=== PATIENT | male | born 1970 | race American Indian/Alaskan Native ===

== ENCOUNTER 2024-12-05 08:57 | Emergency (ER) | payer MEDICAID, SELFPAY ==
[2024-12-05 09:28] VITALS: BP 124/75; PULSE 88; RESP 18; TEMP 36.7; O2SAT 98; BMI 30.1
--- NOTE | 2024-12-05 10:02 | PD.EDRME ---
Rapid Medical Screening Exam RME Arrival date/time: 12/05/24 08:57 Chief Complaint: Animal Bite Vital signs: Vital Signs Temperature 98.0 F 12/05/24 09:28 Pulse Rate 88 12/05/24 09:28 Respiratory Rate 18 12/05/24 09:28 Blood Pressure 124/75 12/05/24 09:28 Pulse Oximetry (%) 98 12/05/24 09:28 Oxygen Delivery Method Room Air 12/05/24 09:28 Pulse ox room air 98% Vital signs reviewed by provider: Yes RME Narrative: Patient tells me that he was bit by an insect this last Thursday and his left lower extremity began to swell which brought him to the ED today. Complains of left lower extremity pain.
--- NOTE | 2024-12-05 10:03 | XR_ITS ---
Examination: Duplex scan of the lower extremity, unilateral left complete Date and time of exam: December 05, 2024 1019 hours INDICATIONS: Left leg edema pain and fever beginning 2 days ago Technique: Duplex scan of the extremity veins using B-mode/grayscale imaging and Doppler spectral analysis and color flow Attention is directed to internal echogenicity, compression and augmentation involving these veins, color flow assessment, spectral analysis Findings: Major deep venous structures in the extremity demonstrate normal course and caliber. There is no evidence of deep vein thrombosis. Normal color flow and spectral analysis Impression: Negative for DVT..
[2024-12-05 10:48] LABS: Basophils # (Auto) 0.0 Thou/mm3 (0.0-0.2); Basophils % (Auto) 1 % (0-2.5); Eosinophils # (Auto) 0.2 Thou/mm3 (0.0-0.5); Eosinophils % (Auto) 6 % (0-10); Hematocrit 28.5 % (41.0-53.0); Hemoglobin 10.2 g/dL (13.5-16.0); Immature Granulocytes Auto 0.02 Thou/mm3 (0.00-0.00); Lymphocytes # (Auto) 0.7 Thou/mm3 (1.0-4.8); Lymphocytes % (Auto) 23 % (10-50); Mean Corpuscular HGB Conc 35.8 g/dl (31.0-37.0); Mean Corpuscular Hemoglobin 30.5 pg (25.0-35.0); Mean Corpuscular Volume 85 fL (80-100); Monocytes # (Auto) 0.3 Thou/mm3 (0.0-0.8); Monocytes % (Auto) 9 % (0-12); Neutrophils # (Auto) 1.8 Thou/mm3 (1.8-7.7); Neutrophils % (Auto) 60 % (37-80); Nucleated Red Blood Cell # 0.00 Thou/mm3 (0.00-0.00); Nucleated Red Blood Cell % 0 /100 WBC (0); RDW Standard Deviation 47.0 fL (35.1-43.9); Red Blood Count 3.34 Miln/mm3 (4.50-5.90); White Blood Count 3.0 Thou/mm3 (3.8-10.6)
[2024-12-05 10:53] LABS: Alanine Aminotransferase 50 U/L (10-49); Albumin, Serum 2.4 gm/dL (3.5-5.0); Albumin/Globulin Ratio 0.6 (1.2-2.2); Alkaline Phosphatase 55 U/L (46-116); Anion Gap 5 (7-16); Aspartate Amino Transferase 82 U/L (0-34); BUN/Creatinine Ratio 19 Ratio (12-20); Bilirubin,Total 2.2 mg/dL (0.3-1.2); Blood Urea Nitrogen 13 mg/dL (9-23); Calcium 7.5 mg/dL (8.3-10.6); Calcium (Corrected) 8.8 mg/dL (8.5-10.1); Carbon Dioxide 28.6 mMol/L (20.0-31.0); Chloride 104 mMol/L (98-107); Creatinine (Component) 0.7 mg/dL (0.6-1.3); Estimated Creatinine Clearance 131.4 mL/min (>60); Globulin 3.9 gm/dL (2.3-3.5); Glucose 102 mg/dL (74-106); Osmolality,Calculated 275 (275-295); Potassium 3.1 mMol/L (3.4-5.1); Sodium 138 mMol/L (136-145); Total Protein 6.3 gm/dL (5.7-8.2); eGFR > 60 See Note
[2024-12-05 10:58] LABS: Platelet Count 54 Thou/mm3 (140-440)
[2024-12-05 11:45] LABS: D-Dimer 411 ng/mL (<600)
[2024-12-05 12:08] LABS: Slide Review Platelets confirmed
[2024-12-05 12:13] VITALS: BP 137/81; PULSE 72; RESP 18; TEMP 36.3; O2SAT 100
--- NOTE | 2024-12-05 12:31 | XR_ITS ---
Examination: CT left lower extremity, with intravenous contrast. 2-D sagittal reconstructions. 2-D coronal reconstructions. 3-D reconstructions. Date and time of exam: December 05, 2024 1455 hours INDICATIONS: Left leg redness swelling and pain this week CTDI: vol (mGy):9.85 DLP: (mGycm):1021 Technique: Multiple 1.25 mm axial sections of the 60 cc Isovue-370 have been obtained. 2-D sagittal and coronal reconstructions have been obtained. 3-D reconstructions have been obtained. Low dose protocols were performed. One or more of the following dose reduction techniques were used; automated exposure control, adjustment of the mA and/or KV according to patient size, use of iterative reconstruction technique. Findings: Mild cellulitis edema in the subcutaneous fatty tissues surrounding the thigh, more prominent about the lateral aspect of the knee and surrounding the lower leg However, no soft tissue abscess Negative for osteomyelitis, no cortical bone destruction IMPRESSION: Cellulitis pattern lower leg especially about the knee and tibia-fibula No soft tissue abscess Negative for osteomyelitis
[2024-12-05 12:43] VITALS: BP 110/69; PULSE 73
[2024-12-05] MEDS: FUROSEMIDE INJ 10 MG/ML VIAL 2 ML 40 MG IVP (12:43)
[2024-12-05] MEDS: MORPHINE SULF INJ 10 MG/ML VIAL 2 MG IVP (12:45)
[2024-12-05] MEDS: DOXYCYCLINE 100 MG TABLET PO (12:46)
--- NOTE | 2024-12-05 13:34 | EDNOTE_ITS ---
ED Extremity Problem RME/HPI General Chief complaint: Animal Bite Stated complaint: Spider bite left lower leg Time Seen by Provider: 12/05/24 12:15 Arrival date/time: 12/05/24 08:57 Limitations: no limitations RME / HPI RME / HPI Narrative: Patient is a 54-year-old male is here today for left lower leg pain and swelling. He has chronic lower leg swelling but it became worse 3 days ago. He was seen in our ER recently for this and was treated with antibiotics. He takes spironolactone and furosemide chronically. He denies any chest pain or shortness of breath. Has no fevers or chills. Has no open wounds. Does not recall any injuries to his leg. He has no other acute complaints. Patient states he is not sure why his leg is chronically swollen. He states he has not had this worked up before. He has no known history of lymphedema. Related Data Previous Rx's ?Medication ?Instructions ?Recorded furosemide 20 mg tablet (Lasix) 20 mg PO BID 1 month # 60 tabs 12/04/22 metolazone 2.5 mg tablet 2.5 mg PO QDAY 1 month #30 t abs 12/04/22 pantoprazole 40 mg tablet,delayed 40 mg PO QDAY #30 ta bs 12/04/22 release (Protonix) potassium chloride 8 mEq 8 meq PO DAILY 30 days #30 t abs 12/04/22 tablet,extended release (Klor-Con) spironolactone 25 mg tablet 25 mg PO BID 30 days #60 t abs 12/04/22 doxycycline hyclate 100 mg capsule 100 mg PO BID #14 c aps 12/05/24 naproxen 500 mg tablet 500 mg PO BID PRN pain #14 t abs 12/05/24 Allergies Allergy/AdvReac Type Severity Reaction Status Date / Time No Known Allergies Allergy Verified 12/05/24 09:01 Review of Systems Review of Systems Systems Reviewed: All systems reviewed, normal except as documented ED Exam General Limitations: Present no limitations General appearance: Present alert and in no apparent distress Head Head exam: Present atraumatic Eye Eye exam: Present normal appearance, PERRL and EOMI ENT ENT exam: Present normal exam, normal oropharynx and mucous membranes moist Neck Neck exam: Present normal inspection, full ROM and trachea midline Chest Chest inspection: Present normal inspection and symmetric chest wall rise Respiratory Respiratory exam: Present normal lung sounds bilaterally Cardiovascular Cardiovascular exam: Present regular rate, normal rhythm and normal heart sounds Abdominal Exam Abdominal exam: Present soft and normal bowel sounds Extremities Exam Extremities exam: Present full ROM and pedal edema (+4, pretibial edema at the left side.) Back Exam Back exam: Present normal inspection and full ROM Neurological Exam Neurological exam: Present alert and oriented X3 Psychiatric Psychiatric exam: Present normal affect and normal mood Skin Skin exam: Present warm, dry, intact, normal color and other (There is diffuse edema at the dorsum of the left foot that extends to the left leg. Skin is shiny. There is no open wounds or warmth. No drainage present.) Course Quality Measures none Orders Category Date Time Status CT Screening NOW Care 12/05/24 12:[address] lower leg LT w con Stat Exams 12/05/24 12:31 Completed US venous duplex LE LT Stat Exams 12/05/24 10:03 Completed CBC Stat Lab 12/05/24 10:14 Completed CMP [Comprehensive Metabolic Panel] Stat Lab 12/05/24 10:14 Completed D-Dimer Stat Lab 12/05/24 10:14 Completed Doxycycline [Vibramycin] Med 12/05/24 12:22 Discontinued 100 mg PO X1 ONE Furosemide [Lasix Inj] Med 12/05/24 12:22 Discontinued 40 mg IVP X1 ONE Morphine Inj Med 12/05/24 12:22 Discontinued 2 mg IVP X1 ONE Potassium Chloride [K-Dur] Med 12/05/24 16:23 Discontinued 40 meq PO X1 ONE Vital Signs Vital signs: Vital Signs Temperature 98.0 F 12/05/24 09:28 Pulse Rate 88 12/05/24 09:28 Respiratory Rate 18 12/05/24 09:28 Blood Pressure 124/75 12/05/24 09:28 Pulse Oximetry (%) 98 12/05/24 09:28 Oxygen Delivery Method Room Air 12/05/24 09:28 Extremity Problem MDM Narrative MDM Narrative:: Patient is a 54-year-old male is here today for left lower leg pain and swelling. He has chronic lower leg swelling but it became worse 3 days ago. He was seen in our ER recently for this and was treated with antibiotics. He takes spironolactone and furosemide chronically. He denies any chest pain or shortness of breath. Has no fevers or chills. Has no open wounds. Does not recall any injuries to his leg. He has no other acute complaints. Patient states he is not sure why his leg is chronically swollen. He states he has not had this worked up before. He has no known history of lymphedema. Ultrasound was negative for DVT. CT was obtained to rule out gas from nation or lymphedema. CT revealed cellulitic pattern with no soft tissue gas or lymphedema. Patient was given a dose of doxycycline here. He will be discharged with a prescription of doxycycline and naproxen. Return precautions were discussed. He agrees return anytime for any worsening changes. Patient data External records reviewed:: [facility] previous records and None Clinical information provided by:: patient Social determinants that could affect healthcare access:: none Patient has the following chronic illnesses:: Lower leg edema How is presenting disease/condition affected by chronic disease/condition?: exacerbated by Evaluation data The following diagnostics were reviewed and interpreted by me:: radiology exam(s) Lab and/or radiology exams considered but not ordered:: n/a Interpretation Summary: No soft tissue gas or lymphedema Medications / Prescriptions Medications or Prescriptions considered but not ordered:: n/a Medication administrations:: Medication Administration History Discontinued Medications Doxycycline Hyclate (Doxycycline 100 Mg Tablet) 100 mg PO X1 ONE Stop: 12/05/24 12:23 Last Admin: 12/05/24 12:46 Dose: 100 mg Documented By: RD Furosemide (Furosemide Inj 10 Mg/Ml Vial 2 Ml) 40 mg IVP X1 ONE Stop: 12/05/24 12:23 Last Admin: 12/05/24 12:43 Dose: 40 mg Documented By: RD Morphine Sulfate (Morphine Sulf Inj 10 Mg/Ml Vial) 2 mg IVP X1 ONE Stop: 12/05/24 12:23 Last Admin: 12/05/24 12:45 Dose: 2 mg Documented By: RD Potassium Chloride (Potassium Chloride 20 Meq Tabcr) 40 meq PO X1 ONE Stop: 12/05/24 16:24 See above Consultations Consultation(s) initiated? (list below): No Diagnosis Extremity Problem Differential Diagnosis: superficial thrombophlebitis, deep venous thrombosis of upper extremity, lower extremity edema and deep vein thrombosis of lower extremity Most likely diagnosis given after review of the tests above:: Cellulitis left lower leg Admission Indicated Admission indicated?: not indicated Admission Request Was there a request for admission?: No Disposition Plan Disposition Plan: Discharge Discharge Attestation Discharge Attestation: The patient and all family members were given an opportunity to ask questions and understood the discharge instructions. Discharge instructions specifically effects, indications for sooner follow up or return to the emergency department, and the expected course of current diagnosis. Patient condition: Stable Discharge Plan Plan Patient Disposition: HOME (Self Care) Patient condition on transfer: Stable Prescriptions/Referrals Prescriptions/Med Rec: New doxycycline hyclate 100 mg capsule 100 mg PO BID Qty: 14 0RF naproxen 500 mg tablet 500 mg PO BID PRN (Reason: pain) Qty: 14 0RF No Action furosemide [Lasix] 20 mg tablet 20 mg PO BID 30 Days Qty: 60 1RF metolazone 2.5 mg Tablet 2.5 mg PO QDAY 30 Days Qty: 30 1RF spironolactone 25 mg Tablet 25 mg PO BID 30 Days Qty: 60 1RF potassium chloride [Klor-Con 8] 8 mEq Tablet Extended Release 8 meq PO DAILY 30 Days Qty: 30 1RF pantoprazole [Protonix] 40 mg tablet,delayed release (DR/EC) 40 mg PO QDAY Qty: 30 0RF Referrals: No Primary/Family,Physician [Primary Care Provider] - In 1 week Outpatient Orders: Potassium (Routine) Location: None Selected Ordered By: Alejandra Corado Problem List Clinical Impression: Cellulitis of left leg Patient/Caregiver Discharge Instructions Education Materials: ED Cellulitis Additional Instructions: - Use the provided antibiotic as prescribed. - Use the provided medications for pain relief. - Return here to the ER anytime for any worsening changes. Print Language: Macedonian Stand Alone Forms: Nancy Award Info., Patient Portal Info Letter
--- NOTE | 2024-12-05 16:16 | PC.NURSE ---
PATIENT STATED THAT NEEDED TO GO HOME BECAUSE HE LEFT HIS rv OPEN IN A MURRELL TO GO TO ER . PATIENT LEFT WITH INSTRUCTIONS TO [facility].
== END 2024-12-05 17:15 | disposition home or self-care (01) ==
PROVIDERS: Emergency Provider Physician Assistant
DX: L03.116 Cellulitis of left lower limb (principal)
CPT/HCPCS: 36415; 73701; 80053; 85025; 85379; 93971; 96374; 96375; 99284; A4649; J1938; J2270; Q9967; A9270

== ENCOUNTER 2024-12-13 22:22 | Emergency (ER) | payer MEDICAID, SELFPAY ==
[2024-12-13 22:23] VITALS: BMI 41.8
[2024-12-13 23:29] VITALS: BP 106/58; PULSE 76; RESP 18; TEMP 36.7; O2SAT 99
--- NOTE | 2024-12-14 00:20 | EDRME_ITS ---
Rapid Medical Screening Exam [facility] Arrival date/time: 12/13/24 22:22 54M with history of cirrhosis, asthma and polysubstance use presented to ED with several weeks of BLE swelling/pain (L>R). Patient has been on Bactrim and doxy w/o relief. Patient had recent imaging on previous visit. Chief Complaint: Wound/Laceration Vital signs: Vital Signs Temperature 98.0 F 12/13/24 23:29 Pulse Rate 76 12/13/24 23:29 Respiratory Rate 18 12/13/24 23:29 Blood Pressure 106/58 L 12/13/24 23:29 Pulse Oximetry (%) 99 12/13/24 23:29 Oxygen Delivery Method Room Air 12/13/24 23:29
[2024-12-14 00:52] LABS: Basophils # (Auto) 0.0 Thou/mm3 (0.0-0.2); Basophils % (Auto) 0 % (0-2.5); Eosinophils # (Auto) 0.2 Thou/mm3 (0.0-0.5); Eosinophils % (Auto) 5 % (0-10); Hematocrit 28.3 % (41.0-53.0); Hemoglobin 9.8 g/dL (13.5-16.0); Immature Granulocytes Auto 0.01 Thou/mm3 (0.00-0.00); Lymphocytes # (Auto) 0.7 Thou/mm3 (1.0-4.8); Lymphocytes % (Auto) 25 % (10-50); Mean Corpuscular HGB Conc 34.6 g/dl (31.0-37.0); Mean Corpuscular Hemoglobin 30.7 pg (25.0-35.0); Mean Corpuscular Volume 89 fL (80-100); Monocytes # (Auto) 0.3 Thou/mm3 (0.0-0.8); Monocytes % (Auto) 10 % (0-12); Neutrophils # (Auto) 1.6 Thou/mm3 (1.8-7.7); Neutrophils % (Auto) 59 % (37-80); Nucleated Red Blood Cell # 0.00 Thou/mm3 (0.00-0.00); Nucleated Red Blood Cell % 0 /100 WBC (0); RDW Standard Deviation 49.8 fL (35.1-43.9); Red Blood Count 3.19 Miln/mm3 (4.50-5.90)
[2024-12-14 01:02] LABS: Platelet Count 65 Thou/mm3 (140-440); White Blood Count 2.8 Thou/mm3 (3.8-10.6)
[2024-12-14 01:07] LABS: B-Type Natriuretic Peptide 32 pg/mL (0-100)
[2024-12-14 01:08] LABS: Alanine Aminotransferase 36 U/L (10-49); Albumin, Serum 2.3 gm/dL (3.5-5.0); Albumin/Globulin Ratio 0.6 (1.2-2.2); Alkaline Phosphatase 56 U/L (46-116); Anion Gap 4 (7-16); Aspartate Amino Transferase 73 U/L (0-34); BUN/Creatinine Ratio 19 Ratio (12-20); Bilirubin,Total 1.2 mg/dL (0.3-1.2); Blood Urea Nitrogen 15 mg/dL (9-23); C-Reactive Protein 3.0 mg/dL (0.0-0.9); Calcium 7.8 mg/dL (8.3-10.6); Calcium (Corrected) 9.2 mg/dL (8.5-10.1); Carbon Dioxide 30.9 mMol/L (20.0-31.0); Chloride 106 mMol/L (98-107); Creatinine (Component) 0.8 mg/dL (0.6-1.3); Estimated Creatinine Clearance 140.0 mL/min (>60); Globulin 4.1 gm/dL (2.3-3.5); Glucose 100 mg/dL (74-106); Osmolality,Calculated 282 (275-295); Potassium 3.9 mMol/L (3.4-5.1); Sodium 141 mMol/L (136-145); Total Protein 6.4 gm/dL (5.7-8.2); eGFR > 60 See Note
[2024-12-14 01:33] LABS: Sed Rate (ESR) 20 mm/hr (0-20)
[2024-12-14 01:44] LABS: Slide Review Platelets confirmed
[2024-12-14 02:45] VITALS: BP 128/76; PULSE 86; RESP 18; TEMP 36.8; O2SAT 100
[2024-12-14 03:41] LABS: Lactate (Lactic Acid) 1.2 mMol/L (0.4-2.0)
--- NOTE | 2024-12-14 03:42 | EDNOTE_ITS ---
ED Extremity Problem RME/HPI General Chief complaint: Wound/Laceration Stated complaint: LEFT LEG WOUND DRAINING MORE, BLE SWELLING Arrival date/time: 12/13/24 22:22 RME / HPI RME / HPI Narrative: 12/13/24 22:22 54M with history of cirrhosis, asthma and polysubstance use presented to ED with several weeks of BLE swelling/pain (L>R). Patient has been on Bactrim and doxy w/o relief. Patient had recent imaging on previous visit. DR. SURESH MAIN ED EVALUATION: 54 y/o male with Hx of COPD, Hepatitis C, and Smoking presents to ED c/o BLE swelling, redness, and pain x 2 weeks. Patient also reports a wound with discharge to the back of the left calf. Patient was seen in the ED 1 week ago and was prescribed antibiotics. Patient also states that he was supposed to be referred for treated of his liver by his PCP, but was never referred. Denies any abdominal swelling. Related Data Previous Rx's ?Medication ?Instructions ?Recorded furosemide 20 mg tablet (Lasix) 20 mg PO BID 1 month # 60 tabs 12/04/22 metolazone 2.5 mg tablet 2.5 mg PO QDAY 1 month #30 t abs 12/04/22 pantoprazole 40 mg tablet,delayed 40 mg PO QDAY #30 ta bs 12/04/22 release (Protonix) potassium chloride 8 mEq 8 meq PO DAILY 30 days #30 t abs 12/04/22 tablet,extended release (Klor-Con) spironolactone 25 mg tablet 25 mg PO BID 30 days #60 t abs 12/04/22 doxycycline hyclate 100 mg capsule 100 mg PO BID #14 c aps 12/05/24 naproxen 500 mg tablet 500 mg PO BID PRN pain #14 t abs 12/05/24 Allergies Allergy/AdvReac Type Severity Reaction Status Date / Time No Known Allergies Allergy Verified 12/13/24 22:23 Review of Systems Review of Systems Systems Reviewed: All systems reviewed, normal except as documented Past Medical History Past Medical History RESPIRATORY: Positive Chronic Obstructive Pulmonary Disease (COPD) and Asthma GASTROINTESTINAL: Positive Hepatitis (C) Social History SMOKING STATUS: Former smoker ED Exam Narrative Physical exam: GENERAL APPEARANCE: alert and oriented x 4, well-developed, well-nourished, no acute distress VITALS: All vitals were reviewed and the pulse ox is 100% on room air, which is normal according to my interpretation. HEENT: Normocephalic, atraumatic; pupils equal, round, reactive to light; EOMI; mucous membranes pink, moist; oropharynx clear NECK: Supple LUNGS: CTABL; no wheezes, no rales, no rhonchi HEART: Regular rate, regular rhythm; normal S1, S2; no murmurs ABDOMEN: non distended; normal BS; soft, no tenderness, no guarding, no rebound; no masses, no organomegaly, no hernia BACK: no CVA tenderness EXTREMITIES: 3+ lower extremity edema, eft leg with mild chronic venuos stasis, wheeping, ulcer on the back approximately 4 cm, irregular, with increased warmth NEUROLOGIC: awake; alert and oriented x4; cranial nerves II-XII grossly intact; no focal sensory or motor deficits PSYCHIATRIC: appropriate mood and affect SKIN: warm, dry, normal color; no rashes Course Quality Measures none Orders Category Date Time Status BNP [B-Type Natriuretic Peptide] Stat Lab 12/14/24 00:40 Completed CBC Stat Lab 12/14/24 00:40 Completed CMP [Comprehensive Metabolic Panel] Stat Lab 12/14/24 00:40 Completed CRP [C-Reactive Protein] Stat Lab 12/14/24 00:40 Completed ESR [Sed Rate (ESR)] Stat Lab 12/14/24 00:40 Completed Lactate (Lactic Acid) Stat Lab 12/14/24 03:34 Completed Procalcitonin Stat Lab 12/14/24 03:34 Completed Trimethoprim/Sulfa 160/800 Ds [Bactrim Ds] Med 12/14/24 04:35 Discontinued 1 tab PO X1 ONE Vital Signs Vital signs: Vital Signs Temperature 98.0 F 12/13/24 23:29 Pulse Rate 76 12/13/24 23:29 Respiratory Rate 18 12/13/24 23:29 Blood Pressure 106/58 L 12/13/24 23:29 Pulse Oximetry (%) 99 12/13/24 23:29 Oxygen Delivery Method Room Air 12/13/24 23:29 Extremity Problem MDM Narrative MDM Narrative:: Scribe Attestation: I, Yessica Gerardo, am scribing for and in the presence of Dr. Suresh. Provider Notation: Although this document has been carefully reviewed, there may still be some phonetic and other typographical errors.? These errors are purely grammatical due to imperfections in the software program and should not be construed in any way to? compromise the substance of the patient's medical care during this visit. Patient data External records reviewed:: [facility] previous records (Reviewed prior ED records from 12/05/24. Patient was seen for Cellulitis of left leg.) Clinical information provided by:: patient Social determinants that could affect healthcare access:: none Patient has the following chronic illnesses:: COPD, Asthma, Hepatitis C How is presenting disease/condition affected by chronic disease/condition?: exacerbated by Evaluation data The following diagnostics were reviewed and interpreted by me:: lab results Lab and/or radiology exams considered but not ordered:: None Interpretation Summary: Labs unremarkable. See MDM above. Medications / Prescriptions Medications or Prescriptions considered but not ordered:: None Medication administrations:: Medication Administration History Discontinued Medications Trimethoprim/Sulfamethoxazole (Trimethoprim/Sulfa 160/800 Ds Tablet) 1 tab PO X1 ONE Stop: 12/14/24 04:36 See above Consultations Consultation(s) initiated? (list below): No Diagnosis Extremity Problem Differential Diagnosis: cellulitis, superficial thrombophlebitis, deep venous thrombosis of upper extremity, lower extremity edema and deep vein thrombosis of lower extremity Most likely diagnosis given after review of the tests above:: Cellulitis Admission Indicated Admission indicated?: not indicated Explain why admission is indicated or not indicated:: Patient does not meet admission criteria. Admission Request Was there a request for admission?: No Disposition Plan Disposition Plan: Discharge Discharge Attestation Discharge Attestation: The patient and all family members were given an opportunity to ask questions and understood the discharge instructions. Discharge instructions specifically effects, indications for sooner follow up or return to the emergency department, and the expected course of current diagnosis. Patient condition: Stable Discharge Plan Plan Patient Disposition: HOME (Self Care) Prescriptions/Referrals Prescriptions/Med Rec: No Action furosemide [Lasix] 20 mg tablet 20 mg PO BID 30 Days Qty: 60 1RF metolazone 2.5 mg Tablet 2.5 mg PO QDAY 30 Days Qty: 30 1RF spironolactone 25 mg Tablet 25 mg PO BID 30 Days Qty: 60 1RF potassium chloride [Klor-Con 8] 8 mEq Tablet Extended Release 8 meq PO DAILY 30 Days Qty: 30 1RF pantoprazole [Protonix] 40 mg tablet,delayed release (DR/EC) 40 mg PO QDAY Qty: 30 0RF doxycycline hyclate 100 mg capsule 100 mg PO BID Qty: 14 0RF naproxen 500 mg tablet 500 mg PO BID PRN (Reason: pain) Qty: 14 0RF Referrals: Thomas Ricardo MD [Primary Care Provider] - In 1 week Problem List Clinical Impression: Cellulitis Patient/Caregiver Discharge Instructions Education Materials: ED Cellulitis Print Language: Azerbaijani Stand Alone Forms: Nancy Award Info., Patient Portal Info Letter
[2024-12-14 04:24] LABS: Procalcitonin 0.07 ng/ml (0.0-0.49)
[2024-12-14] MEDS: TRIMETHOPRIM/SULFA 160/800 DS TABLET 1 TAB PO (04:47)
[2024-12-14 04:51] VITALS: PULSE 75; RESP 17; O2SAT 99
== END 2024-12-14 04:51 | disposition home or self-care (01) ==
PROVIDERS: Physician Assistant; Emergency Provider Emergency Medicine; PCP Family Medicine
DX: L03.116 Cellulitis of left lower limb (principal)
CPT/HCPCS: 36415; 80053; 83605; 83880; 84145; 85025; 85652; 86140; 99283; A9270

== ENCOUNTER 2025-01-08 03:42 | Emergency (ER) | payer MEDICAID, SELFPAY ==
[2025-01-08 03:45] VITALS: BMI 26.9
[2025-01-08 03:47] VITALS: BP 118/65; PULSE 75; RESP 19; TEMP 36.5; O2SAT 97
--- NOTE | 2025-01-08 04:04 | PD.EDSKIN ---
ED Skin Abcess FB-RME/HPI General Chief complaint: Skin/Abscess/Foreign Body Stated complaint: SPIDER BITE L CALF. STATE Time Seen by Provider: 01/08/25 03:51 Arrival date/time: 01/08/25 03:42 This is a case of 54-year-old male who has a history of COPD cirrhosis asthma polysubstance abuse came in in the emergency room due to nonhealing wound on the distal left posterior leg secondary to spider bite patient was here December 14, 2024 where the patient was treated for cellulitis patient [facility] and stated that he did not completed the antibiotic that was given to him persistence of the symptoms this patient decided to sought consult here in the emergency room Limitations: no limitations Related Data Previous Rx's ?Medication ?Instructions ?Recorded furosemide 20 mg tablet (Lasix) 20 mg PO BID 1 month #60 tabs 12/04/22 metolazone 2.5 mg tablet 2.5 mg PO QDAY 1 month #30 tabs 12/04/22 pantoprazole 40 mg tablet,delayed 40 mg PO QDAY #30 tabs 12/04/22 release (Protonix) potassium chloride 8 mEq 8 meq PO DAILY 30 days #30 tabs 12/04/22 tablet,extended release (Klor-Con) spironolactone 25 mg tablet 25 mg PO BID 30 days #60 tabs 12/04/22 doxycycline hyclate 100 mg capsule 100 mg PO BID #14 caps 12/05/24 naproxen 500 mg tablet 500 mg PO BID PRN pain #14 tabs 12/05/24 sulfamethoxazole 800 1 tab PO BID #20 tabs 12/14/24 mg-trimethoprim 160 mg tablet (Bactrim DS) amoxicillin 875 mg-potassium 1 tab PO BID #20 tabs 01/08/25 clavulanate 125 mg tablet doxycycline monohydrate 100 mg 100 mg PO BID #20 caps 01/08/25 capsule mupirocin 2 % topical ointment 1 applic topical BID #22 grams 01/08/25 Allergies Allergy/AdvReac Type Severity Reaction Status Date / Time No Known Allergies Allergy Verified 01/08/25 03:50 Review of Systems Review of Systems Systems Reviewed: All systems reviewed, normal except as documented Constitutional Constitutional: Reports system reviewed and no additional complaints, except as documented and Reports as per HPI Cardiovascular Cardiovascular: Reports system reviewed and no additional complaints, except as documented and Reports as per HPI Respiratory Respiratory: Reports system reviewed and no additional complaints, except as documented and Reports as per HPI Gastrointestinal Gastrointestinal: Reports system reviewed and no additional complaints, except as documented and Reports as per HPI Musculoskeletal Musculoskeletal: Reports system reviewed and no additional complaints, except as documented and Reports as per HPI Integumentary/Breasts Skin/Breast: Reports other (Nonhealing wound leg) Neurologic Neurologic: Reports system reviewed and no additional complaints, except as documented and Reports as per HPI Past Medical History Past Medical History NEUROLOGIC: Negative Neurological Disorders or Seizures CARDIAC: Negative Cardiac Disorders or Congestive Heart Failure RESPIRATORY: Positive Chronic Obstructive Pulmonary Disease (COPD) and Asthma GASTROINTESTINAL: Positive Hepatitis (C); Negative Gastrointestinal Disorders GENITOURINARY: Negative Genitourinary Disorders or Renal Disease MUSCULOSKELETAL: Negative Musculoskeletal Disorders ENDOCRINE: Negative Endocrine Disorders, Diabetes Mellitus Type 1 or Diabetes Mellitus Type 2 HEMATOLOGIC: Negative Blood Disorders or Sickle Cell Disease OTHER HISTORY: Negative Autoimmune Disease, Blood Transfusions, Blood Transfusion Reaction or Anesthesia Reactions Surgical History SURGICAL: Negative Ear Surgery, Abdominal Surgery or Nephrectomy Social History SMOKING STATUS: Current every day smoker ED Exam General Limitations: Present no limitations General appearance: Present alert, in no apparent distress and other (Patient is awake alert oriented not in distress nontoxic looking well-hydrated well-nourished) Head Head exam: Present atraumatic, normocephalic and normal inspection Eye Eye exam: Present normal appearance, PERRL and EOMI ENT ENT exam: Present normal exam, normal oropharynx and mucous membranes moist Neck Neck exam: Present normal inspection, full ROM and trachea midline; Absent tenderness, meningismus, lymphadenopathy or thyromegaly Chest Chest inspection: Present normal inspection and symmetric chest wall rise; Absent tenderness Respiratory Respiratory exam: Present normal lung sounds bilaterally; Absent respiratory distress, wheezes, stridor, accessory muscle use or prolonged expiratory phase Cardiovascular Cardiovascular exam: Present regular rate, normal rhythm and normal heart sounds; Absent bradycardia, tachycardia, irregular rhythm, systolic murmur or diastolic murmur Abdominal Exam Abdominal exam: Present soft and normal bowel sounds; Absent distention, tenderness, guarding, rebound, rigidity, diminished bowel sounds, hyperactive bowel sounds, hypoactive bowel sounds or organomegaly Extremities Exam Extremities exam: Present normal inspection and full ROM Expanded Lower Extremity Exam Lower leg exam: Present tenderness, erythema and other (Noted a open wound approximately 2 cm on the posterior left distal lower leg with mild discharge redness around the wound no abscess with mild cellulitis ROM intact neurovascular intact negative Marquez signs negative Homans' sign no calf tenderness); Absent swelling, abrasion, laceration, ecchymosis, deformity, crepitus, dislocation, palpable cord, Homans' sign or Achilles tendon intact Back Exam Back exam: Present normal inspection and full ROM Neurological Exam Neurological exam: Present alert, oriented X3, CN II-XII intact, normal gait and reflexes normal; Absent motor sensory deficit Psychiatric Psychiatric exam: Present normal affect and normal mood Skin Skin exam: Present warm, dry, intact, normal color and other (Noted a 2 cm nonhealing wound no ulcer no gangrene no abscess mild cellulitis mild discharge tender to touch) Course Quality Measures none Orders Category Date Time Status Insert IV NOW Care 01/08/25 05:19 Completed Clindamycin 900Mg Ivpb [Cleocin/D5w Ivpb] 900 mg Med 01/08/25 04:03 Discontinued Pre-Mixed [Pre-mixed Bag] 1 bag IV X1 Vital Signs Vital signs: Vital Signs Temperature 97.7 F 01/08/25 03:47 Pulse Rate 75 01/08/25 03:47 Respiratory Rate 19 01/08/25 03:47 Blood Pressure 118/65 01/08/25 03:47 Pulse Oximetry (%) 97 01/08/25 03:47 Oxygen Delivery Method Room Air 01/08/25 03:47 Patient is afebrile not tachycardic not tachypneic BP stable not hypoxic oxygen saturation is 97% in room air Skin / Abscess / Foreign Body MDM Narrative MDM Narrative:: This is a case of 54-year-old male who has a history of COPD cirrhosis asthma polysubstance abuse came in in the emergency room due to nonhealing wound on the distal left posterior leg secondary to spider bite patient was here December 14, 2024 where the patient was treated for cellulitis patient [facility] and stated that he did not completed the antibiotic that was given to him persistence of the symptoms this patient decided to sought consult here in the emergency room physical examination patient is awake alert oriented not in distress nontoxic looking noted a 2Cmmeter nonhealing wound open wound on the distal posterior leg with mild discharge redness to suggest cellulitis no ulcer no gangrene no abscess ROM intact neurovascular intact patient refused any imaging or blood test patient verbalized wanted to have wound care and antibiotic treatment wound was cleaned with normal saline and apply triple antibiotic ointment patient was given clindamycin 900 mg for infection and was discharged with Augmentin and doxycycline with mupirocin ointment he was advised to return in 2 days for reevaluation and wound check for any worsening symptoms or any emergent concern he was advised to return to the emergency room immediately or call 911 no signs and symptoms of sepsis no signs and symptoms of bacteremia no gangrene Patient was discharged with comfortable condition walking with stable gait. Patient verbalized no further complains explained diagnosis and answered patient question. Patient is comfortable with the proposed management plan including the need to follow up with his/her primary care physician and any specialist if applicable Discussed patient for any urgent condition or worsening sx, He/She needed to go to emergency room immediately or call 911. Patient acknowledge the responsibility to follow up as instructed and to monitor her/his symptoms. For any persistence of the symptoms for more than 3-5 days return precaution advised. Discussed the result of the test and was given printed discharge instruction Patient data External records reviewed:: [facility] previous records Clinical information provided by:: patient Social determinants that could affect healthcare access:: none Patient has the following chronic illnesses:: None How is presenting disease/condition affected by chronic disease/condition?: no chronic disease Evaluation data The following diagnostics were reviewed and interpreted by me:: other (specify) (Patient refused) Lab and/or radiology exams considered but not ordered:: Refused Interpretation Summary: None Medications / Prescriptions Medications or Prescriptions considered but not ordered:: Given Medication administrations:: Medication Administration History Discontinued Medications Clindamycin Phosphate 900 mg/ (IV Miscellaneous Supplies) 50 mls @ 50 mls/hr IV X1 ONE Stop: 01/08/25 05:02 Last Infusion: 01/08/25 06:11 Dose: Infused Documented By: Admin: 01/08/25 05:21 Dose: 50 mls/hr Documented By: BD Given Consultations Consultation(s) initiated? (list below): No Diagnosis Skin/Abscess Differential Diagnosis: abscess of skin or subcutaneous tissue, cellulitis and contact dermatitis Most likely diagnosis given after review of the tests above:: Nonhealing wound with cellulitis Admission Indicated Admission indicated?: not indicated (Not indicated) Explain why admission is indicated or not indicated:: Not indicated Admission Request Was there a request for admission?: No Admission Attestation Admission request attestation: Not indicated Disposition Plan Disposition Plan: Discharge Discharge Attestation Discharge Attestation: The patient and all family members were given an opportunity to ask questions and understood the discharge instructions. Discharge instructions specifically effects, indications for sooner follow up or return to the emergency department, and the expected course of current diagnosis. Patient condition: Stable Discharge Plan Plan Patient Disposition: HOME (Self Care) Patient condition on transfer: Stable Prescriptions/Referrals Prescriptions/Med Rec: New amoxicillin-pot clavulanate 875-125 mg tablet 1 tab PO BID Qty: 20 0RF doxycycline monohydrate 100 mg capsule 100 mg PO BID Qty: 20 0RF mupirocin 2 % ointment 1 applic topical BID Qty: 22 0RF No Action sulfamethoxazole-trimethoprim [Bactrim DS] 800-160 mg tablet 1 tab PO BID Qty: 20 0RF furosemide [Lasix] 20 mg tablet 20 mg PO BID 30 Days Qty: 60 1RF metolazone 2.5 mg Tablet 2.5 mg PO QDAY 30 Days Qty: 30 1RF spironolactone 25 mg Tablet 25 mg PO BID 30 Days Qty: 60 1RF potassium chloride [Klor-Con 8] 8 mEq Tablet Extended Release 8 meq PO DAILY 30 Days Qty: 30 1RF pantoprazole [Protonix] 40 mg tablet,delayed release (DR/EC) 40 mg PO QDAY Qty: 30 0RF doxycycline hyclate 100 mg capsule 100 mg PO BID Qty: 14 0RF naproxen 500 mg tablet 500 mg PO BID PRN (Reason: pain) Qty: 14 0RF Problem List Clinical Impression: Non-healing wound of left lower extremity, Cellulitis Patient/Caregiver Discharge Instructions Education Materials: Wound Care Dc, ED Cellulitis Additional Instructions: Follow-up with your primary care physician in 2 days for reevaluation it is very important to return in the emergency room in 2 days for reevaluation of the nonhealing wound and cellulitis worsening symptoms or any emergent concern call 911 or go to the nearest emergency room take your medication and finish the course of antibiotic keep the area clean and dry Print Language: Chinese Stand Alone Forms: Nancy Award Info., Patient Portal Info Letter PA/JOCELINE Supervising Physician PA/JOCELINE Supervising Physician: dr fay
--- NOTE | 2025-01-08 04:26 | PC.NURSE ---
CALLED HOUSE SUP FOR MEDICATION
[2025-01-08] MEDS: CLINDAMYCIN 900MG IVPB 900 MG in PRE-MIXED 1 BAG 50 MG IV (05:21)
== END 2025-01-08 06:12 | disposition home or self-care (01) ==
PROVIDERS: Emergency Provider Family Medicine
DX: L03.116 Cellulitis of left lower limb (principal); J44.89 Other specified chronic obstructive pulmonary disease; K74.60 Unspecified cirrhosis of liver; F17.200 Nicotine dependence, unspecified, uncomplicated; Z79.899 Other long term (current) drug therapy
CPT/HCPCS: 96365; 99283; J7036; J0736

== ENCOUNTER 2025-03-31 16:40 | Inpatient (IN) | payer MEDICAID, SELFPAY ==
[2025-03-31 16:41] VITALS: BMI 34.0
[2025-03-31 17:01] VITALS: BP 143/78; PULSE 94; RESP 18; TEMP 36.9; O2SAT 98
[2025-03-31 17:32] VITALS: PULSE 88
--- NOTE | 2025-03-31 17:32 | XR_ITS ---
CLINICAL INDICATION: COUGH, shortness of breath and chest pain for 2 days TECHNIQUE: XR chest 1V portable Exam date and time: 03/31/2025 and 5:52 p.m. COMPARISON: 11/28/2022 FINDINGS: The cardiomediastinal silhouette is within normal limits. Redemonstration of coarse interstitium throughout both lungs with otherwise no airspace consolidation. No mass. No pleural effusion or pneumothorax. No acute osseous abnormality detected. IMPRESSION: Nonspecific mildly coarsened bilateral pulmonary interstitium could be due to noncardiogenic pulmonary edema, inflammation or fibrosis. No airspace consolidation or pleural effusion. - This report was generated utilizing speech recognition software. -
--- NOTE | 2025-03-31 17:32 | EKG_ITS ---
[facility] Test Date: 2025-03-31 Pat Name: MUSTAPHA SAENZ Department: Room: - Gender: Male Visual Stylist: : 1970 Requested By: Jarvis Macdonald Order Number: [id number] Reading MD: Jarvis Macdonald Measurements Intervals [place] Rate: 89 P: 57 TX: 149 QRS: 11 QRSD: 111 T: 64 QT: 381 QTc: 464 Interpretive Statements SINUS RHYTHM MODERATE INTRAVENTRICULAR CONDUCTION DELAY [110+ ms QRS DURATION] NONSPECIFIC T-WAVE ABNORMALITY Compared to ECG 11/28/2022 17:47:16 Intraventricular conduction delay now present T-wave abnormality now present Sinus tachycardia no longer present /store/S0/[id number]/[id number].pdf
--- NOTE | 2025-03-31 17:33 | XR_ITS ---
Examination: Duplex scan of the lower extremity, unilateral left complete Date and time of exam: March 31, 2025, 1850 hours INDICATIONS: Left leg swelling and pain redness beginning 4 days ago Technique: Duplex scan of the extremity veins using B-mode/grayscale imaging and Doppler spectral analysis and color flow Attention is directed to internal echogenicity, compression and augmentation involving these veins, color flow assessment, spectral analysis Findings: Major deep venous structures in the extremity demonstrate normal course and caliber. There is no evidence of deep vein thrombosis. Normal color flow and spectral analysis Impression: Negative for DVT..
--- NOTE | 2025-03-31 17:48 | EDNOTE_ITS ---
ED Skin Abcess FB-RME/HPI General Chief complaint: Skin/Abscess/Foreign Body Stated complaint: PUNCTURE WOUND LEFT LEG, NOW REG/SWOLLEN x 2 DAYS Time Seen by Provider: 03/31/25 17:02 Arrival date/time: 03/31/25 16:40 Limitations: no limitations RME / HPI RME / HPI narrative: 54 year old male with history of hypertension and liver cirrhosis presents to the ED for evaluation of left lower extremity redness, swelling, drainage, and pain beginning 3 days ago. Denies any injuries to the area though does report to puncture wounds with one that is draining. No fevers. No other associated symptoms reported. Related Data Previous Rx's ?Medication ?Instructions ?Recorded furosemide 20 mg tablet (Lasix) 20 mg PO BID 1 month # 60 tabs 12/04/22 metolazone 2.5 mg tablet 2.5 mg PO QDAY 1 month #30 t abs 12/04/22 pantoprazole 40 mg tablet,delayed 40 mg PO QDAY #30 ta bs 12/04/22 release (Protonix) potassium chloride 8 mEq 8 meq PO DAILY 30 days #30 t abs 12/04/22 tablet,extended release (Klor-Con) spironolactone 25 mg tablet 25 mg PO BID 30 days #60 t abs 12/04/22 naproxen 500 mg tablet 500 mg PO BID PRN pain #14 t abs 12/05/24 mupirocin 2 % topical ointment 1 applic topical BID #2 2 grams 01/08/25 cephalexin 500 mg capsule 500 mg PO QID #10 caps 04/03 Allergies Allergy/AdvReac Type Severity Reaction Status Date / Time No Known Allergies Allergy Verified 03/31/25 16:42 Review of Systems Review of Systems Systems Reviewed: All systems reviewed, normal except as documented Past Medical History Past Medical History CARDIAC: Positive Hypertension RESPIRATORY: Positive Chronic Obstructive Pulmonary Disease (COPD) and Asthma GASTROINTESTINAL: Positive Hepatitis and Cirrhosis Social History SMOKING STATUS: Current every day smoker ED Exam General Limitations: Present no limitations General appearance: Present alert and in no apparent distress Head Head exam: Present atraumatic Eye Eye exam: Present normal appearance, PERRL and EOMI ENT ENT exam: Present normal exam, normal oropharynx and mucous membranes moist Neck Neck exam: Present normal inspection, full ROM and trachea midline Chest Chest inspection: Present normal inspection and symmetric chest wall rise Respiratory Respiratory exam: Present normal lung sounds bilaterally Cardiovascular Cardiovascular exam: Present regular rate, normal rhythm and normal heart sounds Abdominal Exam Abdominal exam: Present soft, normal bowel sounds and other (No ascites) Extremities Exam Extremities exam: Present full ROM and other (Mild muscle wasting, LLE with 3+ edema and erythema just to the knee, punctate to the left anterior pretibial surfacce, posterior 3x 5 cm wound that was granulating and did not appear infected ) Back Exam Back exam: Present normal inspection and full ROM Neurological Exam Neurological exam: Present alert, oriented X3 and CN II-XII intact Psychiatric Psychiatric exam: Present normal affect and normal mood Skin Skin exam: Present warm, dry, intact and normal color Course Quality Measures none Orders Category Date Time Status Patient Condition Routine Admission 03/31/25 22:12 Ordered Activity as Tolerated Routine Care 03/31/25 22:[address] Screening NOW Care 03/31/25 22:11 Completed Japanese Interpreter NOW Care 03/31/25 17:32 Completed Continuous Pulse Oximetry NOW Care 03/31/25 17:32 Completed EKG (ED ONLY) *Do not use* NOW Care 03/31/25 17:32 Completed Insert IV NOW Care 03/31/25 17:32 Completed Miscellaneous Nursing Order NOW Care 03/31/25 22:15 Completed Notify provider NEEDED Care 03/31/25 22:12 Completed Sequential Compression Device QSHIFT Care 03/31/25 22:12 Completed TDap [Obtain Tdap Consent] X1 Care 03/31/25 17:38 Completed Wound Care PRN Care 03/31/25 22:00 Completed Diet Regular Diet 04/01/[address] lower leg LT w con Stat Exams 03/31/25 22:10 Completed EKG (ED Only) Stat Exams 03/31/25 17:32 Draft US venous doppler LE LT Stat Exams 03/31/25 17:33 Completed XR chest 1V portable Stat Exams 03/31/25 17:32 Completed Ammonia Routine Lab 03/31/25 22:57 Completed Blood Culture (Lab) Stat Lab 03/31/25 17:50 Results CBC AM DRAW Lab 04/01/25 05:15 Completed CBC AM DRAW Lab 04/02/25 04:21 Completed CBC AM DRAW Lab 04/03/25 05:01 Completed CBC Stat Lab 03/31/25 17:50 Completed CMP [Comprehensive Metabolic Panel] AM DRAW Lab 04/01/25 05:15 Completed CMP [Comprehensive Metabolic Panel] AM DRAW Lab 04/02/25 04:21 Completed CMP [Comprehensive Metabolic Panel] AM DRAW Lab 04/03/25 05:01 Completed CRP [C-Reactive Protein] Stat Lab 03/31/25 22:57 Completed Comprehensive Metabolic Panel Stat Lab 03/31/25 17:50 Completed ESR [Sed Rate (ESR)] Stat Lab 03/31/25 22:57 Completed Lactic Acid [Lactate (Lactic Acid)] Stat Lab 03/31/25 17:50 Completed Mag [Magnesium] AM DRAW Lab 04/01/25 05:15 Completed Mag [Magnesium] AM DRAW Lab 04/02/25 04:21 Completed Mag [Magnesium] AM DRAW Lab 04/03/25 05:01 Completed Partial Thromboplastin Time Stat Lab 03/31/25 17:50 Completed Phosphorous AM DRAW Lab 04/01/25 05:15 Completed Phosphorous AM DRAW Lab 04/02/25 04:21 Completed Phosphorous AM DRAW Lab 04/03/25 05:01 Completed Prothrombin Time with INR Stat Lab 03/31/25 17:50 Completed Troponin I Stat Lab 03/31/25 17:50 Completed Urinalysis Stat Lab 03/31/25 19:27 Completed Wound Culture and Gram Stain Stat Lab 03/31/25 21:44 Completed Acetaminophen Tab [Tylenol Tab] Med 03/31/25 22:12 Discontinued 650 mg PO Q6H PRN Docusate Sod [Colace] Med 04/01/25 09:00 Discontinued 100 mg PO QDAY Famotidine Inj [Pepcid Inj] Med 04/01/25 09:00 Discontinued 20 mg IVP Q12HR HYDROcodone*/APAP 5/325 [Elma 5/325] Med 03/31/25 22:12 Discontinued 1 tab PO Q4HR PRN Morphine* Inj Med 03/31/25 17:38 Discontinued 4 mg IVP X1 ONE Ondansetron Inj [Zofran Inj] Med 03/31/25 22:12 Discontinued 4 mg IVP Q6H PRN Ondansetron Inj [Zofran Inj] Med 03/31/25 17:38 Discontinued 4 mg IVP X1 ONE Piper/Tazo 3.375 gm Premix [Zosyn] Med 03/31/25 17:34 Discontinued 3.375 gm in 50 ml IV X1 Ringers Lactated 1000 ml [Lactated Ringers] 1,000 ml Med 03/31/25 22:15 Discontinued IV 75 mls/hr Sodium Chloride 0.9% 1000 ml [Ns] 1,000 ml Med 03/31/25 17:32 Discontinued IV 100 mls/hr TET,DIP/PERT AC (Adult)-Tdap [Boostrix Adult (Tdap) Med 03/31/25 21:44 Discontinued Vacc] 0.5 ml IMI .ONCE ONE Vancomycin/D5w 1500 mg Ivpb 300 ml Med 03/31/25 17:35 Discontinued IV X1 Code Status Routine Oth 03/31/25 22:12 Completed Vital Signs Vital signs: Vital Signs Temperature 98.4 F 03/31/25 17:01 Pulse Rate 94 03/31/25 17:01 Respiratory Rate 18 03/31/25 17:01 Blood Pressure 143/78 H 03/31/25 17:01 Pulse Oximetry (%) 98 03/31/25 17:01 Oxygen Delivery Method Room Air 03/31/25 17: Pulse ox is 98% on room air which is adequate. Skin / Abscess / Foreign Body MDM Narrative MDM Narrative:: Elen Hinojosa am scribing for and in the presence of Dr. Bryant. 1800: Patients care signed out to Dr. Manuel pending labs and final disposition. Patient data External records reviewed:: [facility] previous records Clinical information provided by:: patient Social determinants that could affect healthcare access:: none Patient has the following chronic illnesses:: hypertension and liver cirrhosis How is presenting disease/condition affected by chronic disease/condition?: uneffected by Evaluation data The following diagnostics were reviewed and interpreted by me:: lab results, radiology exam(s) and EKG tracing(s) (EKG @ 20:05. NSR, rate 89, no STEMI. ) Lab and/or radiology exams considered but not ordered:: None Interpretation Summary: Ordering Physician: Jarvis Bryant MD Date of Service: 03/31/25 Procedure(s): XR chest 1V portable Accession Number(s): [id number] cc: Jarvis Bryant MD; NO PRIMARY/FAMILY,PHYSICIAN; Partha Kumari DO~ CLINICAL INDICATION: COUGH, shortness of breath and chest pain for 2 days TECHNIQUE: XR chest 1V portable Exam date and time: 03/31/2025 and 5:52 p.m. COMPARISON: 11/28/2022 FINDINGS: The cardiomediastinal silhouette is within normal limits. Redemonstration of coarse interstitium throughout both lungs with otherwise no airspace consolidation. No mass. No pleural effusion or pneumothorax. No acute osseous abnormality detected. IMPRESSION: Nonspecific mildly coarsened bilateral pulmonary interstitium could be due to noncardiogenic pulmonary edema, inflammation or fibrosis. No airspace consolidation or pleural effusion. - This report was generated utilizing speech recognition software. - Dictated By: Partha Kumari DO Signed By: <Electronically signed by Partha Kumari DO in OV> 03/31/25 1808 Medications / Prescriptions Medications or Prescriptions considered but not ordered:: None Medication administrations:: Medication Administration History Discontinued Medications Acetaminophen (Acetaminophen 325 Mg Tablet) 650 mg PO Q6H PRN PRN Reason: Fever >100.4 or pain 1-3 Stop: 04/30/25 22:11 Hydrocodone Bitart/Acetaminophen (Hydrocodone/Apap 5/325 Tablet) 1 tab PO Q4HR PRN PRN Reason: PAIN SCALE 4-6 (Moderate Stop: 04/05/25 22:11 Diphtheria/Tetanus/Acell Pertussis (Diphth,Pertuss(Acell),Tet Vac 0.5 Ml Syr- Adult) 0.5 ml IMi .ONCE ONE Stop: 03/31/25 21:45 Last Admin: 03/31/25 22:08 Dose: 0.5 ml Documented By: ANDI Docusate Sodium (Docusate Sod 100 Mg Capsule) 100 mg PO QDAY [facility]; Protocol Stop: 05/01/25 08:59 Last Admin: 04/03/25 09:31 Dose: Not Given Documented By: DEREK Non-Admin Reason: Patient Refused Admin: 04/02/25 08:42 Dose: 100 mg Documented By: nikia Admin: 04/01/25 09:21 Dose: 100 mg Documented By: nikia Famotidine (Famotidine Inj 10 Mg/Ml Vial 2 Ml) 20 mg IVP Q12HR [facility] Stop: 05/01/25 08:59 Last Admin: 04/03/25 09:32 Dose: 20 mg Documented By: Admin: 04/02/25 20:26 Dose: 20 mg Documented By: Admin: 04/02/25 08:41 Dose: 20 mg Documented By: nikia Admin: 04/01/25 22:14 Dose: 20 mg Documented By: Admin: 04/01/25 09:20 Dose: 20 mg Documented By: nikia Famotidine (Famotidine 20 Mg Tablet) 20 mg PO Q12HR SANDY Stop: 05/01/25 08:59 Furosemide (Furosemide Inj 10 Mg/Ml 4ml Vial) 40 mg IVP QDAY SANDY Stop: 05/01/25 08:59 Last Admin: 04/03/25 09:32 Dose: 40 mg Documented By: Admin: 04/02/25 08:41 Dose: 40 mg Documented By: nikia Admin: 04/01/25 09:20 Dose: 40 mg Documented By: nikia Heparin Sodium (Porcine) (Heparin Sod Inj 5000 Unit/Ml Vial) 5,000 unit SC Q8HR SANDY Stop: 04/15/25 21:59 Heparin Sodium (Porcine) (Heparin Sod Inj 5000 Unit/Ml Vial) 5,000 unit SC Q12HR SANDY; Protocol Stop: 04/16/25 08:59 Last Admin: 04/03/25 09:34 Dose: 5,000 unit Documented By: DEREK Co-signed By: LIMA Admin: 04/02/25 20:26 Dose: 5,000 unit Documented By: MUKESH Co-signed By: KALIN Admin: 04/02/25 08:41 Dose: 5,000 unit Documented By: nikia Co-signed By: ROBERTO Sodium Chloride (Ns) 1,000 mls @ 100 mls/hr IV .Q10H ONE Stop: 04/01/25 03:31 Last Admin: 03/31/25 18:00 Dose: 100 mls/hr Documented By: ANN MARIE Piperacillin/Tazobactam/Dextrose (Zosyn) 3.375 gm in 50 mls @ 100 mls/hr IV X1 ONE; Protocol Stop: 03/31/25 18:03 Last Infusion: 03/31/25 19:00 Dose: Infused Documented By: ANN MARIE Admin: 03/31/25 18:01 Dose: 100 mls/hr Documented By: ANN MARIE Vancomycin HCl/Dextrose (Vancomycin/D5w 1500 Mg Ivpb) 300 mls @ 120 mls/hr IV X1 ONE Stop: 03/31/25 20:04 Last Infusion: 03/31/25 21:39 Dose: Infused Documented By: Admin: 03/31/25 19:03 Dose: 120 mls/hr Documented By: DB Lactated Ringer's (Lactated Ringers) 1,000 mls @ 75 mls/hr IV .[id number] SANDY Stop: 04/30/25 22:14 Last Admin: 03/31/25 22:43 Dose: 75 mls/hr Documented By: DT Piperacillin/Tazobactam/Dextrose (Zosyn) 50 mls @ 100 mls/hr IV Q8HR SANDY; Protocol Stop: 04/07/25 22:45 Piperacillin/Tazobactam/Dextrose (Zosyn) 3.375 gm in 50 mls @ 100 mls/hr IV X1 ONE; Protocol Stop: 04/01/25 02:29 Last Admin: 04/01/25 01:45 Dose: Not Given Documented By: HUAN Non-Admin Reason: Cancelled by Provider Comments: Start dose at 0600 Vancomycin HCl 1,000 mg/ (Sodium Chloride) 250 mls @ 120 mls/hr IV X1 ONE Stop: 04/01/25 01:04 Last Admin: 04/01/25 00:28 Dose: Not Given Documented By: IMANI Non-Admin Reason: Per Dr. Nichole do not give. Piperacillin/Tazobactam/Dextrose (Zosyn) 3.375 g in 50 mls @ 12.5 mls/hr IV Q8 HR SANDY; Protocol Stop: 04/08/25 02:29 Last Admin: 04/01/25 05:44 Dose: 12.5 mls/hr Documented By: HUAN Vancomycin HCl/Dextrose (Vancomycin/D5w 1500 Mg Ivpb) 300 mls @ 120 mls/hr IV Q8HR SANDY; Protocol Stop: 04/08/25 07:59 Last Admin: 04/03/25 05:44 Dose: Not Given Documented By: MUKESH Non-Admin Reason: per [facility] redose. Admin: 04/02/25 21:40 Dose: Not Given Documented By: MUKESH Non-Admin Reason: Per Protocol Admin: 04/02/25 13:19 Dose: 120 mls/hr Documented By: nikia Infusion: 04/02/25 07:56 Dose: Infused Documented By: nikia Admin: 04/02/25 05:26 Dose: 120 mls/hr Documented By: Infusion: 04/02/25 00:44 Dose: Infused Documented By: Admin: 04/01/25 22:14 Dose: 120 mls/hr Documented By: Infusion: 04/01/25 16:42 Dose: Infused Documented By: Admin: 04/01/25 14:12 Dose: 120 mls/hr Documented By: nikia Infusion: 04/01/25 11:49 Dose: Infused Documented By: nikia Admin: 04/01/25 09:19 Dose: 120 mls/hr Documented By: nikia Ceftriaxone Sodium/Dextrose (Rocephin/D5w 1gm Iv Premix) 1 gm in 50 mls @ 100 mls/hr IV QDAY SANDY Stop: 04/08/25 11:55 Last Admin: 04/03/25 09:35 Dose: 100 mls/hr Documented By: Infusion: 04/02/25 09:07 Dose: Infused Documented By: Admin: 04/02/25 08:37 Dose: 100 mls/hr Documented By: nikia Infusion: 04/01/25 12:54 Dose: Infused Documented By: nikia Admin: 04/01/25 12:24 Dose: 100 mls/hr Documented By: nikia Vancomycin HCl 1,500 mg/ (Sodium Chloride) 500 mls @ 120 mls/hr IV BID@1000,2200 SANDY; Protocol Stop: 04/10/25 09:59 Last Admin: 04/03/25 11:23 Dose: 120 mls/hr Documented By: nikia Lactulose (Lactulose Syrup 20 Gm/30 Ml Udc) 20 gm PO TID SANDY; Protocol Stop: 04/30/25 23:44 Last Admin: 04/03/25 14:16 Dose: Not Given Documented By: nikia Non-Admin Reason: Patient Refused Admin: 04/03/25 05:44 Dose: Not Given Documented By: MUKESH Non-Admin Reason: per dose instructions Admin: 04/02/25 21:24 Dose: Not Given Documented By: MUKESH Non-Admin Reason: Per Protocol Comments: per dose instructions. Admin: 04/02/25 13:17 Dose: Not Given Documented By: nikia Non-Admin Reason: Per Protocol Admin: 04/02/25 05:28 Dose: Not Given Documented By: COLLINS Non-Admin Reason: Per Protocol Comments: per pt multiple bms during night Admin: 04/01/25 22:24 Dose: Not Given Documented By: COLLINS Non-Admin Reason: Per Protocol Admin: 04/01/25 14:12 Dose: 20 gm Documented By: nikia Admin: 04/01/25 06:34 Dose: 20 gm Documented By: Admin: 04/01/25 00:33 Dose: 20 gm Documented By: IMANI Morphine Sulfate (Morphine Sulf Inj 4 Mg/Ml Vial) 4 mg IVP X1 ONE Stop: 03/31/25 17:39 Last Admin: 03/31/25 18:00 Dose: 4 mg Documented By: ANN MARIE Nicotine (Nicotine Patch 21 Mg/24 Hr Patch.Td24) 21 mg TOP QDAY [facility] Stop: 05/01/25 08:59 Last Admin: 04/03/25 09:31 Dose: Not Given Documented By: DEREK Non-Admin Reason: Patient Refused Admin: 04/02/25 08:37 Dose: 21 mg Documented By: nikia Admin: 04/01/25 09:19 Dose: 21 mg Documented By: nikia Ondansetron HCl (Ondansetron Inj 2 Mg/Ml Inj 2 Ml) 4 mg IVP X1 ONE; Protocol Stop: 03/31/25 17:39 Last Admin: 03/31/25 18:00 Dose: 4 mg Documented By: ANN MARIE Ondansetron HCl (Ondansetron Inj 2 Mg/Ml Inj 2 Ml) 4 mg IVP Q6H PRN; Protocol PRN Reason: NAUSEA OR VOMITING Stop: 04/30/25 22:11 Pharmacy Consult (Vancomycin Pharmacy To Dose 1 Each Each) 1 each IV QDAY PRN PRN Reason: CONSULT Stop: 05/01/25 08:59 Rifaximin (Rifaximin 550 Mg Tablet) 550 mg PO BID [facility] Stop: 04/08/25 08:59 Last Admin: 04/03/25 09:44 Dose: 550 mg Documented By: Admin: 04/02/25 20:26 Dose: 550 mg Documented By: Admin: 04/02/25 08:41 Dose: 550 mg Documented By: nikia Admin: 04/01/25 22:14 Dose: 550 mg Documented By: Admin: 04/01/25 09:21 Dose: 550 mg Documented By: nikia Spironolactone (Spironolactone 25 Mg Tablet) 100 mg PO QDAY SANDY Stop: 05/01/25 08:59 Last Admin: 04/03/25 09:44 Dose: 100 mg Documented By: Admin: 04/02/25 08:37 Dose: 100 mg Documented By: nikia Admin: 04/01/25 09:20 Dose: 100 mg Documented By: nikia See above Consultations Consultation(s) initiated? (list below): No Diagnosis Skin/Abscess Differential Diagnosis: abscess of skin or subcutaneous tissue, cellulitis and insect bites Most likely diagnosis given after review of the tests above:: Cellulitis left leg Puncture wound left leg Cirrhosis Admission Indicated Admission indicated?: not indicated Explain why admission is indicated or not indicated:: Signed out to Dr. Manuel pending final disposition. Admission Request Was there a request for admission?: No Disposition Plan Disposition Plan: other (specify) (Signed out to Dr. Manuel ) Discharge Plan Plan Patient Disposition: Admit Acute Care w/in Hospital Patient condition on transfer: Stable Problem List Clinical Impression: Cellulitis, Puncture wound Patient/Caregiver Discharge Instructions Discharge Activity: activity as tolerated
[2025-03-31] MEDS: MORPHINE SULF INJ 4 MG/ML VIAL IVP (18:00)
[2025-03-31] MEDS: SODIUM CHLORIDE 0.9% 1000 ML 1,000 ML 100 ML IV (18:00)
[2025-03-31] MEDS: ONDANSETRON INJ 2 MG/ML INJ 2 ML 4 MG IVP (18:00)
[2025-03-31] MEDS: PIPER/TAZO 3.375 GM PREMIX 3.375 GM/50 ML BAG IV (18:01)
[2025-03-31 18:03] LABS: Lactate (Lactic Acid) 1.4 mMol/L (0.4-2.0)
[2025-03-31 18:08] VITALS: BP 118/63; PULSE 89; RESP 19; TEMP 36.8; O2SAT 100
[2025-03-31 18:19] LABS: Basophils # (Auto) 0.0 Thou/mm3 (0.0-0.2); Basophils % (Auto) 1 % (0-2.5); Eosinophils # (Auto) 0.3 Thou/mm3 (0.0-0.5); Eosinophils % (Auto) 6 % (0-10); Hematocrit 31.6 % (41.0-53.0); Hemoglobin 10.9 g/dL (13.5-16.0); Immature Granulocytes Auto 0.02 Thou/mm3 (0.00-0.00); Lymphocytes # (Auto) 0.7 Thou/mm3 (1.0-4.8); Lymphocytes % (Auto) 17 % (10-50); Mean Corpuscular HGB Conc 34.5 g/dl (31.0-37.0); Mean Corpuscular Hemoglobin 30.2 pg (25.0-35.0); Mean Corpuscular Volume 88 fL (80-100); Monocytes # (Auto) 0.5 Thou/mm3 (0.0-0.8); Monocytes % (Auto) 12 % (0-12); Neutrophils # (Auto) 2.7 Thou/mm3 (1.8-7.7); Neutrophils % (Auto) 64 % (37-80); Nucleated Red Blood Cell # 0.00 Thou/mm3 (0.00-0.00); Nucleated Red Blood Cell % 0 /100 WBC (0); RDW Standard Deviation 46.0 fL (35.1-43.9); Red Blood Count 3.61 Miln/mm3 (4.50-5.90); White Blood Count 4.2 Thou/mm3 (3.8-10.6)
[2025-03-31 18:22] LABS: Platelet Count 46 Thou/mm3 (140-440)
[2025-03-31 18:23] LABS: INR 1.3 (0.9-1.3); Partial Thromboplastin Time 40.0 Seconds (22.0-36.0); Prothrombin Time 14.0 Seconds (9.0-12.2)
[2025-03-31 18:25] LABS: Alanine Aminotransferase 32 U/L (10-49); Albumin, Serum 2.7 gm/dL (3.5-5.0); Albumin/Globulin Ratio 0.8 (1.2-2.2); Alkaline Phosphatase 62 U/L (46-116); Anion Gap 5 (7-16); Aspartate Amino Transferase 50 U/L (0-34); BUN/Creatinine Ratio 20 Ratio (12-20); Bilirubin,Total 1.5 mg/dL (0.3-1.2); Blood Urea Nitrogen 14 mg/dL (9-23); Calcium 7.9 mg/dL (8.3-10.6); Calcium (Corrected) 8.9 mg/dL (8.5-10.1); Carbon Dioxide 27.3 mMol/L (20.0-31.0); Chloride 107 mMol/L (98-107); Creatinine (Component) 0.7 mg/dL (0.6-1.3); Estimated Creatinine Clearance 143.6 mL/min (>60); Globulin 3.3 gm/dL (2.3-3.5); Glucose 84 mg/dL (74-106); Osmolality,Calculated 277 (275-295); Potassium 3.6 mMol/L (3.4-5.1); Sodium 139 mMol/L (136-145); Total Protein 6.0 gm/dL (5.7-8.2); Troponin I < 0.002 ng/mL (0.0-0.045); eGFR > 60 See Note
--- NOTE | 2025-03-31 18:27 | EDNOTE_ITS ---
Emergency Room Addendum Addendum Narrative: 1800: Care assumed from Dr. Bryant (emergency physician). Past medical, surgical, social and family history reviewed. Vitals and home medications reviewed. Results and treatment plan discussed. I will assume the care of the patient at this time and will follow the patient, pending labs. The following addendum documentation note is intended to reflect any pending information, findings, or radiology results not included in the patient?s initial chart by the previous shift scribe. 20:30 - Assumed care of this pleasant 54 y/o male with Hx of cirrhotic liver disease presenting with progressive swelling and redness of LLE. Reports superficial puncture wound just below left knee and excoriation of posterior calf which preceded noted swelling. Clinical impression demonstrates 2+ circumferential edema and erythema extending from ankle to knee with scattered vesicles. There is a 2x3 cm area of fluctuance just below patella medial anteriorly and exquisite TTP, there is erythema extending from the medial thigh, no left inguinal adenopathy. Near-complete FROM at the knee. Distal function intact. Pertinent labs demonstrate WBC of stable anemia, hemo of 10.9, and thrombocyo with platelet count of 6. Coagulation profile mildly elevated with PTT of 40. Serum chemistries demonstrate mild elevation LFT's, and UA without signs of infection. Patient treated with analgesia, IV fluids, imperic dual- antibiotics, and tetanus status updated. Patient underwent I&D of suspected abscess performed by Karen Arriola NP, (please see procedure note). US demonstrates absence of DVT. Hospitalist consulted and agrees to admit. Final diagnosis includes cellulitis of LLE. 21:05 - Discussed with resident physician for hospitalist for admission. Reviewed the patient?s HPI, PMHx, lab and/or radiology results. Discussed treatment plan. Will consult an admission to the hospitalist. 22:10 - Patient will be admitted by hospitalist team. ED Procedures Abscess I/D Site: lower extremity Side (if applicable): left Sedation/analgesia: none Local Anesthetic: lidocaine 1% Amount of anesthesia used (mL): 3 Technique: incised with #11 blade Amount of fluid expressed (mL): 5 Irrigation: Yes Packing used?: none
[2025-03-31] MEDS: VANCOMYCIN/D5W 1500 MG IVPB 300 ML 120 MG IV (19:03)
[2025-03-31 19:16] LABS: Slide Review Platelets confirmed
[2025-03-31 19:20] VITALS: BP 124/63; PULSE 91; RESP 14; TEMP 37; O2SAT 99
[2025-03-31 19:34] LABS: Collection Type, Urine Clean Catch
[2025-03-31 19:51] LABS: Bilirubin,Urine 1+ (Negative); Blood,Urine Negative (Negative); Clarity,Urine Clear (Clear/Hazy); Color,Urine Drk-Yellow (Lt Yel-Yel); Glucose, Urine Negative (Negative); Ketones,Urine Trace (Negative); Leukocyte Esterase,Urine Negative (Negative); Nitrite,Urine Negative (Negative); PH,Urine 6.5 (5.0-7.0); Protein,Urine 2+ (Neg - Trace); RBC,Urine 9 /hpf (0-3); Squamous Epithelial Cell,Urine 2 /hpf (0-5); Urobilinogen,Urine 8.0 mg/dL (0.0-1.0); WBC,Urine 4 /hpf (0-5)
[2025-03-31 19:56] LABS: Specific Gravity,Urine >= 1.030 (1.001-1.035)
[2025-03-31 21:00] VITALS: BP 129/70; PULSE 75; RESP 14; TEMP 37; O2SAT 99
[2025-03-31] MEDS: DIPHTH,PERTUSS(ACELL),TET VAC 0.5 ML SYR- ADULT IMi (22:08)
--- NOTE | 2025-03-31 22:10 | XR_ITS ---
Examination: CT left lower extremity with intravenous contrast, 2-D sagittal reconstructions. 2-D coronal reconstructions. 3-D reconstructions. Date and time of exam: March 31, 2025, 10:35 p.m. INDICATIONS: Left lower leg puncture wound in the knee area 2 days ago with redness swelling and pain CTDI: vol (mGy): 7.32 DLP: (mGycm): 563 Technique: Multiple 1.25 mm axial sections of the left lower extremity post intravenous administration 60 cc [id number] have been obtained. 2-D sagittal and coronal reconstructions have been obtained. 3-D reconstructions have been obtained. Low dose protocols were performed. One or more of the following dose reduction techniques were used; automated exposure control, adjustment of the mA and/or KV according to patient size, use of iterative reconstruction technique. Findings: Distal femur intact Edema in the subcutaneous fatty tissue 15 mm chronic lateral subluxation of the patella More pronounced edema surrounding the tibia and fibula No cortical bone destruction involving the distal femur, patella, tibia or fibula No soft tissue abscess IMPRESSION: Diffuse cellulitis pattern involving the left lower leg Negative for osteomyelitis Negative for soft tissue abscess
--- NOTE | 2025-03-31 22:41 | PD.RESHP ---
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 Admitted for LLE cellulitis requiring IV abx. ED Course Summary Vitals: BP 143/78 HR 94 RR 18 T 98.4F O2 98% RA Labs: Hgb 10.9 HCT 31.6 Plt 46, PT 14 INR 1.3 APTT 40.0 T. Bili 1.5 (chronic baseline) AST 50 Albumin 2.7. UA dark yellow, +2 protein, bilirubin +1, RBC 9 Imaging: CXR non specific mildly coarsened bilateral pulmonary interstitium. Venous doppler US negative for DVT. EKG moderate IV conduction delay QTC 464 Treatment. DTAP vaccine, LR 1L, Vancomycin, zosyn, zofran, morphine, NS 1L Admit: For cellulitis IV Abx Upon initial examination patient is friendly and agreeable AOx4 and GCS 15. States he landed on a screw (clean) that he was using to do some housework one week ago. It punctured him about 0.5 inches, he promptly removed the screw and cleaned the wound. He is unsure of last tetanus shot but thinks it was 5-8 years ago. He reports his leg has become progressively more swollen and red. Today he was helping some friends set a project up and his leg was progressively worsening, so he decided to come in today. He still has good range of motion on the leg, but at some level limited by pain (pain 7/0), no pain with passive extension. Denies fevers, chills, night sweats, NVD. Regarding his past hepatitis C + test, he states he was never treated for it, but his PCP wnated him to follow up with a specialist that he does not recall doing. Code: Full Insulin: None Medical Hx: ESLD (alcohol), asthma, Hep C(2019) untreated Medications: Pending med rec, patient is unsure of his medications says 5-6 pills. ibuprofen definitely Allergies: KNA Surgical history: None Fhx: Noncontributory Living: in Work: on Disability Alcohol: 3 years sober Cigarettes/tobacco: Quit for 15 years, as of the last 2 years has smoked 1-2 cigarettes/day Recreational drugs: Meth in the past, now just cannabis Patient admitted for: LLE cellulitis All 12 systems reviewed and were negative except otherwise stated in HPI. Exam Vital Signs Temp Pulse Resp BP Pulse Ox O2 Del Method 98.6 F 75 14 129/70 99 Room Air 03/31/25 21:00 03/31/25 21:00 03/31/25 21:00 03/31/25 21:00 03/31/25 21:00 03/31/25 21:00 Narrative Exam GENERAL APPEARANCE: AOx4. NAD, activity normal for age, well developed/ well nourished, no cyanosis, pallor, or diaphoresis. Appears fatigued, able to be roused, no scleral icterus, jaundice or mucousal darkening. HEENT: Normocephalic atraumatic, no facial trauma, neck is supple. Lids/conjunctiva normal. Mucous membranes moist, nares normal, lips/teeth normal uvula midline without oral pharyngeal erythema, exudate or swelling TMs normal bilaterally. No lymphangitis/lymphedema. CARDIAC: Regular rate and rhythm, S1+S2 heard Harsh S1. No murmurs, rubs, or gallops noted RESPIRATORY: respiratory effort normal, speaks in full sentences, no tripod position, no accessory muscle use. Lungs clear to auscultation without rhonchi, wheezes, rales ABDOMINAL: NBS. Soft, ND/NT. No evidence of fluid wave. No pulsatile masses on exam, rebound tenderness, Hess sign or pain over Mcburney's point. MUSCLES/EXTREMITIES: LLE 1 cm laceration no oozing, pus, or material expressed, erythematous tracking up from ankles to thigh, no induration felt, +2 bilateral pedal edema. DERM: Warm, pink and dry. No rashes, dermatoses, petechiae or lesions. NEUROLOGICAL: Speech is clear and appropriate. Normal level of consciousness. Gait and coordination not assessed. 5/5 strength in all extremities. PSYCH: Normal mood and affect. Judgement/competence is appropriate Results: Labs 04/01/25 05:15 04/01/25 05:15 Labs: Short CBC 03/31/25 Range/Units 17:50 WBC 4.2 (3.8-10.6) Thou/mm3 Hgb 10.9 L (13.5-16.0) g/dL Hct 31.6 L (41.0-53.0) % Plt Count 46 L (140-440) Thou/mm3 BMP 03/31/25 17:50 Sodium 139 Potassium 3.6 Chloride 107 Carbon Dioxide 27.3 BUN 14 Creatinine 0.7 Glucose 84 Calcium 7.9 L Cardiac Enzymes 03/31/25 Range/Units 17:50 Troponin I < 0.002 (0.0-0.045) ng/mL Liver Function 03/31/25 Range/Units 17:50 Total Bilirubin 1.5 H (0.3-1.2) mg/dL AST 50 H (0-34) U/L ALT 32 (10-49) U/L Alkaline Phosphatase 62 (46-116) U/L Albumin 2.7 L (3.5-5.0) gm/dL Urine 03/31/25 Range/Units 19:27 Urine Color Drk-Yellow A (Lt Yel-Yel) Urine Clarity Clear (Clear/Hazy) Urine pH 6.5 (5.0-7.0) Ur Specific [place] >= 1.030 (1.001-1.035) Urine Protein 2+ A (Neg - Trace) Urine Glucose (UA) Negative (Negative) Quality Measures Quality Measures VTE prophylaxis Medications Home Medications and Allergies Allergies Allergy/AdvReac Type Severity Reaction Status Date / Time No Known Allergies Allergy Verified 03/31/25 16:42 Visit Medications Acetaminophen (Acetaminophen 325 Mg Tablet) 650 mg PO Q6H PRN PRN Reason: Fever >100.4 or pain 1-3 Stop: 04/30/25 22:11 Hydrocodone Bitart/Acetaminophen (Hydrocodone/Apap 5/325 Tablet) 1 tab PO Q4HR PRN PRN Reason: PAIN SCALE 4-6 (Moderate Stop: 04/05/25 22:11 Docusate Sodium (Docusate Sod 100 Mg Capsule) 100 mg PO QDAY SANDY; Protocol Stop: 05/01/25 08:59 Famotidine (Famotidine Inj 10 Mg/Ml Vial 2 Ml) 20 mg IVP Q12HR SANDY Stop: 05/01/25 08:59 Sodium Chloride (Ns) 1,000 mls @ 100 mls/hr IV .Q10H ONE Stop: 04/01/25 03:31 Last Admin: 03/31/25 18:00 Dose: 100 mls/hr Lactated Ringer's (Lactated Ringers) 1,000 mls @ 75 mls/hr IV .[id number] SANDY Stop: 04/30/25 22:14 Ondansetron HCl (Ondansetron Inj 2 Mg/Ml Inj 2 Ml) 4 mg IVP Q6H PRN; Protocol PRN Reason: NAUSEA OR VOMITING Stop: 04/30/25 22:11 Discontinued Medications Diphtheria/Tetanus/Acell Pertussis (Diphth,Pertuss(Acell),Tet Vac 0.5 Ml Syr- Adult) 0.5 ml IMi .ONCE ONE Stop: 03/31/25 21:45 Last Admin: 03/31/25 22:08 Dose: 0.5 ml Piperacillin/Tazobactam/Dextrose (Zosyn) 3.375 gm in 50 mls @ 100 mls/hr IV X1 ONE; Protocol Stop: 03/31/25 18:03 Last Infusion: 03/31/25 19:00 Dose: Infused Vancomycin HCl/Dextrose (Vancomycin/D5w 1500 Mg Ivpb) 300 mls @ 120 mls/hr IV X1 ONE Stop: 03/31/25 20:04 Last Infusion: 03/31/25 21:39 Dose: Infused Morphine Sulfate (Morphine Sulf Inj 4 Mg/Ml Vial) 4 mg IVP X1 ONE Stop: 03/31/25 17:39 Last Admin: 03/31/25 18:00 Dose: 4 mg Ondansetron HCl (Ondansetron Inj 2 Mg/Ml Inj 2 Ml) 4 mg IVP X1 ONE; Protocol Stop: 03/31/25 17:39 Last Admin: 03/31/25 18:00 Dose: 4 mg Assessment & Plan Plan 54 y/o male with hx of 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 #LLE extensive cellulitis Knee punctured by screw 0.5 inch penetration, promptly washed. Now with 1 week of worsening edema and erythema. Drained in the ED. Patient still has full range of motion, however, painful 7/10. +2 pedal edema, erythema from ankle to thigh. Cellulitis pattern, not feeling very indurated on palpation. No leukocytosis, ESR 5CT LE with contrast showed diffuse cellulitis pattern involving the LLE. Zosyn and vanc given in the ED. TDAP vaccine/booster given in ED. Plan: -CT / con LLE: diffuse cellulitis pattern involving the LLE -Wound care referral in -[facility] wound cx:___ -& gram stain:____ -Vanc (pharm dose) (03/31 - -Zosyn 3.375g IV Q8HR (03/31 - -tylenol 650 mg Pain 1-3 -Narco 5mg Q4hr for pain 4-6 -Pending CRP:___ -IV LR 575ml/hr maintenance fluids #Cirrhosis (alcohol) #Hep C (+2019) untreated #Thrombocytopenia #Anemia of chronic disease #Hyperammonemia He is AOx4 but appears fatigued, trouble opening his eyes in exam; however he is capable of eye contact, responds to names, follows commands, making intelligible responses GCS 15. Patient is unsure of his home medications, knows he takes ibuprofen for pain. Platelet 46 PT 14 INR 1.3 APTT 40.0 T. Bili 1.5 (chronic baseline) AST 50 Albumin 2.7. Ammonia 87. Plan: - Lactulose 20 mg PO TID - Lasix 40 mg IV daily - Spironolactone 100 mg PO daily - Rifaximin 550 mg PO BID - Daily weights - Transfuse pRBC if hgb <7 - Transfuse plt if plt <10 to prevent spontaneous hemorrhage - Limit Acetaminophen use <=2-3 g/day for mild 1-3 pain (650 mg PO q8h). Toradol 15 mg IV q6h PRN pain 4-7. Can do dilaudid 0.5 mg q6h if pain 8-10. Avoid NSAIDs 2/2 risk of hepatorenal syndrome. Health Maintenance: Code status: Full DVT prophylaxis: SCDs GI prophylaxis: Famotidine Diet: Regular Biggs: None Lines: PIV Supplemental O2: None Disposition: Med surg Patient seen and reviewed with attending Dr. Mclaughlin. Note written by Olu Nihcole MD PGY-1 Attending Provider Attestation/Addendum After examination of the patient and review of the clinical data I feel that this patient needs admission to the hospital for further treatment/evaluation. Plan of care discussed with patient and is in agreement. I Gregorio Mclaughlin MD, attest that I was physically present for jolly portions of evaluation, and examined patient, labs and imagings and plan of care were discussed with IM residents team, and I agree with the findings and plans documented above.
[2025-03-31] MEDS: RINGERS LACTATED 1000 ML 1,000 ML 75 ML IV (22:43)
[2025-03-31 23:07] LABS: Sed Rate (ESR) 5 mm/hr (0-20)
[2025-03-31 23:23] VITALS: BMI 63.6
[2025-03-31 23:28] LABS: Ammonia 87 uMol/L (11-32)
[2025-03-31 23:32] LABS: HIV (1&2) Antibody Rapid Non-Reactive
[2025-03-31 23:49] LABS: C-Reactive Protein 4.3 mg/dL (0.0-0.9)
[2025-04-01] VITALS (7 sets, daily range): BP systolic 105–130; BP diastolic 58–85; PULSE 73–105; RESP 16–20; TEMP 36.8–37.3; O2SAT 95–99; BMI 32.1
[2025-04-01] MEDS: LACTULOSE SYRUP 20 GM/30 ML UDC PO ×3 (00:33→14:12)
--- NOTE | 2025-04-01 00:35 | PC.NURSE ---
MEd Rec not completed. PT. will ask neice to bring medications to hospital.
--- NOTE | 2025-04-01 00:45 | PC.NURSE ---
Report received from Ken ALEXANDER; assessment reviewed and pt assessed- agree with findings. Assuming care of pt at this time.
[2025-04-01] MEDS: PIPER/TAZO 3.375 GM PREMIX 3.375 G/50 ML BAG IV (05:44)
[2025-04-01 06:42] LABS: Basophils # (Auto) 0.0 Thou/mm3 (0.0-0.2); Basophils % (Auto) 1 % (0-2.5); Eosinophils # (Auto) 0.2 Thou/mm3 (0.0-0.5); Eosinophils % (Auto) 4 % (0-10); Hematocrit 31.1 % (41.0-53.0); Hemoglobin 10.7 g/dL (13.5-16.0); Immature Granulocytes Auto 0.03 Thou/mm3 (0.00-0.00); Lymphocytes # (Auto) 0.8 Thou/mm3 (1.0-4.8); Lymphocytes % (Auto) 16 % (10-50); Mean Corpuscular HGB Conc 34.4 g/dl (31.0-37.0); Mean Corpuscular Hemoglobin 30.4 pg (25.0-35.0); Mean Corpuscular Volume 88 fL (80-100); Monocytes # (Auto) 0.4 Thou/mm3 (0.0-0.8); Monocytes % (Auto) 9 % (0-12); Neutrophils # (Auto) 3.3 Thou/mm3 (1.8-7.7); Neutrophils % (Auto) 70 % (37-80); Nucleated Red Blood Cell # 0.00 Thou/mm3 (0.00-0.00); Nucleated Red Blood Cell % 0 /100 WBC (0); RDW Standard Deviation 46.7 fL (35.1-43.9); Red Blood Count 3.52 Miln/mm3 (4.50-5.90); White Blood Count 4.8 Thou/mm3 (3.8-10.6)
[2025-04-01 06:44] LABS: Platelet Count 50 Thou/mm3 (140-440)
[2025-04-01 07:14] LABS: Alanine Aminotransferase 29 U/L (10-49); Albumin, Serum 2.4 gm/dL (3.5-5.0); Albumin/Globulin Ratio 0.8 (1.2-2.2); Alkaline Phosphatase 51 U/L (46-116); Anion Gap 5 (7-16); Aspartate Amino Transferase 51 U/L (0-34); BUN/Creatinine Ratio 22 Ratio (12-20); Bilirubin,Total 2.0 mg/dL (0.3-1.2); Blood Urea Nitrogen 11 mg/dL (9-23); Calcium 7.6 mg/dL (8.3-10.6); Calcium (Corrected) 8.9 mg/dL (8.5-10.1); Carbon Dioxide 24.0 mMol/L (20.0-31.0); Chloride 108 mMol/L (98-107); Creatinine (Component) 0.5 mg/dL (0.6-1.3); Estimated Creatinine Clearance 301.5 mL/min (>60); Globulin 3.0 gm/dL (2.3-3.5); Glucose 85 mg/dL (74-106); Magnesium 1.7 mg/dL (1.6-2.6); Osmolality,Calculated 272 (275-295); Phosphorous 3.2 mg/dL (2.4-5.1); Potassium 4.3 mMol/L (3.4-5.1); Sodium 137 mMol/L (136-145); Total Protein 5.4 gm/dL (5.7-8.2); eGFR > 60 See Note
[2025-04-01 08:04] LABS: Slide Review Platelets confirmed
[2025-04-01] MEDS: NICOTINE PATCH 21 MG/24 HR PATCH.TD24 TOP (09:19)
[2025-04-01] MEDS: VANCOMYCIN/D5W 1500 MG IVPB 300 ML 120 MG IV ×3 (09:19→22:14)
[2025-04-01] MEDS: FUROSEMIDE INJ 10 MG/ML 4ML VIAL 40 MG IVP (09:20)
[2025-04-01] MEDS: SPIRONOLACTONE 25 MG TABLET 100 MG PO (09:20)
[2025-04-01] MEDS: FAMOTIDINE INJ 10 MG/ML VIAL 2 ML 20 MG IVP ×2 (09:20→22:14)
[2025-04-01] MEDS: DOCUSATE SOD 100 MG CAPSULE PO (09:21)
--- NOTE | 2025-04-01 11:22 | PC.SS ---
54YO Male, reason for visit: CELLULITIS Multimedia Services Manager met patient at bedside to complete initial assessment. Role and purpose of today's contact was explained. Patient confirmed his demographic information. He reported [facility] Patient stated his friend Divina Lock [phone] is his surrogate medical decisionmaker. Patient stated he is independent with ADL completion and ambulates with a cane at all times. PHARMACY: [facility]. PCP: Mitch, to inform SS when he has PCP?s name. Patient has requested to return home when medically clear. NEXT OF KIN: Friend Divina Lock [phone] DISCHARGE PLAN: Home
[2025-04-01] MEDS: cefTRIAXone/D5w 1gm IV premix 1 GM/50 ML BAG IV (12:24)
--- NOTE | 2025-04-01 14:55 | PC.NURSE ---
pt states his family will bring the meds for med rec later tonight
--- NOTE | 2025-04-01 14:59 | ESPR_ITS ---
<Statement entered by Edson King MD - 04/01/25 17:42> Patient seen and examined at bedside. I discussed and supervised with the international tax manager physician who took care of this patient. I personally saw and examined the patient. I agree with most of the assessment and plan. Patient admitted for cellulitis following puncture wound under left knee. Received I&D in ED, cultures taken. Was able to express small amount of purulent material, will keep patient on vancomycin and ceftriaxone pending culture results. CT of limb reassuring, showed soft tissue swelling w/o osteomyelitis or abscess. Will continue with spironolactone, lasix, lactulose, rifaximin due to liver cirrhosis with elevated ammonia level. Leg with good range of motion at knee joint. Plan of care discussed with attending Dr. Dejesus. Edson King MD PGY-2 Documentation for date of: 04/01/25 Subjective Subjective Interval history: 54-year-old male with history of cirrhotic liver disease due to alcohol abuse, untreated hepatitis C (2019), who presented with progressive swelling and redness of LLE following a screw punctured 5 days ago. Admitted for LLE cellulitis. He promptly remove the screw and cleaned the wound. Since then the wound has become increasingly more swollen and red. Patient reports pain and restriction in ROM in his left leg. Denies fevers, chills, night sweats, N/V/D. Exam Vital Signs Temp Pulse Resp BP Pulse Ox O2 Del Method 98.6 F 93 16 105/58 L 98 Room Air 04/01/25 12:00 04/01/25 12:00 04/01/25 12:00 04/01/25 12:00 04/01/25 12:00 04/01/25 12:00 Narrative Exam GENERAL APPEARANCE: AOx4. NAD, activity normal for age, well developed/ well nourished, no cyanosis, pallor, or diaphoresis. Appears fatigued, able to be roused, no scleral icterus, jaundice or mucousal darkening. HEENT: Normocephalic atraumatic, no facial trauma, neck is supple. Lids/conjunctiva normal. Mucous membranes moist, nares normal, lips/teeth normal uvula midline without oral pharyngeal erythema, exudate or swelling TMs normal bilaterally. No lymphangitis/lymphedema. CARDIAC: Regular rate and rhythm, S1+S2 heard Harsh S1. No murmurs, rubs, or gallops noted RESPIRATORY: respiratory effort normal, speaks in full sentences, no tripod position, no accessory muscle use. Lungs clear to auscultation without rhonchi, wheezes, rales ABDOMINAL: NBS. Soft, ND/NT. No evidence of fluid wave. No pulsatile masses on exam, rebound tenderness, Hess sign or pain over Mcburney's point. MUSCLES/EXTREMITIES: LLE 1 cm laceration no oozing, pus, or material expressed, erythematous tracking up from ankles to thigh, no induration felt, +2 bilateral pedal edema. Absent asterixis. DERM: Warm, pink and dry. No rashes, dermatoses, petechiae or lesions. NEUROLOGICAL: Speech is clear and appropriate. Normal level of consciousness. Gait and coordination not assessed. 5/5 strength in all extremities. PSYCH: Normal mood and affect. Judgement/competence is appropriate Objective Labs 04/01/25 05:15 04/01/25 05:15 Labs: Laboratory Results - last 24 hr 03/31/25 03/31/25 03/31/25 17:50 19:27 22:57 WBC 4.2 RBC 3.61 L Hgb 10.9 L Hct 31.6 L MCV 88 MCH 30.2 MCHC 34.5 RDW Std Deviation 46.0 H Plt Count 46 L Neut % (Auto) 64 Lymph % (Auto) 17 [place] % (Auto) 12 Eos % (Auto) 6 Baso % (Auto) 1 Neut # (Auto) 2.7 Lymph # (Auto) 0.7 L [place] # (Auto) 0.5 Eos # (Auto) 0.3 Baso # (Auto) 0.0 Immature Gran # (Auto) 0.02 H Absolute Nucleated RBC 0.00 Immature Gran % 1 H Nucleated RBC % 0 ESR 5 PT 14.0 H INR 1.3 APTT 40.0 H Sodium 139 Potassium 3.6 Chloride 107 Carbon Dioxide 27.3 Anion Gap 5 L BUN 14 Creatinine 0.7 Estim Creat Clear Calc 143.6 eGFR > 60 BUN/Creatinine Ratio 20 Glucose 84 Calculated Osmolality 277 Lactic Acid 1.4 Calcium 7.9 L Corrected Calcium 8.9 Phosphorus Magnesium Total Bilirubin 1.5 H AST 50 H ALT 32 Alkaline Phosphatase 62 Ammonia 87 H* Troponin I < 0.002 C-Reactive Prot, Quant 4.3 H Total Protein 6.0 Albumin 2.7 L Globulin 3.3 Albumin/Globulin Ratio 0.8 L Ur Collection Type Clean Catch Urine Color Drk-Yellow A Urine Clarity Clear Urine pH 6.5 Ur Specific [place] >= 1.030 Urine Protein 2+ A Urine Glucose (UA) Negative Urine Ketones Trace Urine Blood Negative Urine Nitrite Negative Urine Bilirubin 1+ A Urine Urobilinogen (Auto) 8.0 Ur Leukocyte Esterase Negative Urine RBC 9 H Urine WBC 4 Ur Squamous Epith Cells 2 Urine Bacteria None HIV 1&2 Antibody Rapid Non-Reactive Misc Test Result Platelets confirmed 04/01/25 05:15 WBC 4.8 RBC 3.52 L Hgb 10.7 L Hct 31.1 L MCV 88 MCH 30.4 MCHC 34.4 RDW Std Deviation 46.7 H Plt Count 50 L Neut % (Auto) 70 Lymph % (Auto) 16 [place] % (Auto) 9 Eos % (Auto) 4 Baso % (Auto) 1 Neut # (Auto) 3.3 Lymph # (Auto) 0.8 L [place] # (Auto) 0.4 Eos # (Auto) 0.2 Baso # (Auto) 0.0 Immature Gran # (Auto) 0.03 H Absolute Nucleated RBC 0.00 Immature Gran % 1 H Nucleated RBC % 0 ESR PT INR APTT Sodium 137 Potassium 4.3 D Chloride 108 H Carbon Dioxide 24.0 Anion Gap 5 L BUN 11 Creatinine 0.5 L Estim Creat Clear Calc 301.5 eGFR > 60 BUN/Creatinine Ratio 22 H Glucose 85 Calculated Osmolality 272 L Lactic Acid Calcium 7.6 L Corrected Calcium 8.9 Phosphorus 3.2 Magnesium 1.7 Total Bilirubin 2.0 H D AST 51 H ALT 29 Alkaline Phosphatase 51 Ammonia Troponin I C-Reactive Prot, Quant Total Protein 5.4 L Albumin 2.4 L Globulin 3.0 Albumin/Globulin Ratio 0.8 L Ur Collection Type Urine Color Urine Clarity Urine pH Ur Specific [place] Urine Protein Urine Glucose (UA) Urine Ketones Urine Blood Urine Nitrite Urine Bilirubin Urine Urobilinogen (Auto) Ur Leukocyte Esterase Urine RBC Urine WBC Ur Squamous Epith Cells Urine Bacteria HIV 1&2 Antibody Rapid Misc Test Result Platelets confirmed Quality Measures Quality Measures none Assessment & Plan Assessment Current Active Medications: Generic Name Dose Route Start Last Admin Trade Name Freq PRN Reason Stop Dose Admin Acetaminophen 650 mg 03/31/25 22:12 Acetaminophen 325 Mg Tablet PO 04/30/25 22:11 Q6H PRN Fever >100.4 or pain 1-3 Hydrocodone Bitart/Acetaminophen 1 tab 03/31/25 22:12 Hydrocodone/Apap 5/325 Tablet PO 04/05/25 22:11 Q4HR PRN PAIN SCALE 4-6 (Moderate Docusate Sodium 100 mg 04/01/25 09:00 04/01/25 09:21 Docusate Sod 100 Mg Capsule PO 05/01/25 08:59 100 mg QDAY SANDY Administration Protocol Famotidine 20 mg 04/01/25 09:00 04/01/25 09:20 Famotidine Inj 10 Mg/Ml Vial 2 Ml IVP 05/01/25 08:59 20 mg Q12HR SANDY Administration Furosemide 40 mg 04/01/25 09:00 04/01/25 09:20 Furosemide Inj 10 Mg/Ml 4ml Vial IVP 05/01/25 08:59 40 mg QDAY SANDY Administration Vancomycin HCl/Dextrose 300 mls @ 120 mls/hr 04/01/25 08:00 04/01/25 14:12 Vancomycin/D5w 1500 Mg Ivpb IV 04/08/25 07:59 120 mls/hr Q8HR SANDY Administration Protocol Ceftriaxone Sodium/Dextrose 1 gm in 50 mls @ 100 mls/hr 04/01/25 11:56 04/01/25 12:24 Rocephin/D5w 1gm Iv Premix IV 04/08/25 11:55 100 mls/hr QDAY SANDY Administration Lactulose 20 gm 03/31/25 23:45 04/01/25 14:12 Lactulose Syrup 20 Gm/30 Ml Udc PO 04/30/25 23:44 20 gm TID SANDY Administration Protocol Nicotine 21 mg 04/01/25 09:00 04/01/25 09:19 Nicotine Patch 21 Mg/24 Hr Patch.Td24 TOP 05/01/25 08:59 21 mg QDAY SANDY Administration Ondansetron HCl 4 mg 03/31/25 22:12 Ondansetron Inj 2 Mg/Ml Inj 2 Ml IVP 04/30/25 22:11 Q6H PRN NAUSEA OR VOMITING Protocol Pharmacy Consult 1 each 04/01/25 09:00 Vancomycin Pharmacy To Dose 1 Each Each IV 05/01/25 08:59 QDAY PRN CONSULT Rifaximin 550 mg 04/01/25 09:00 04/01/25 09:21 Rifaximin 550 Mg Tablet PO 04/08/25 08:59 550 mg BID SANDY Administration Spironolactone 100 mg 04/01/25 09:00 04/01/25 09:20 Spironolactone 25 Mg Tablet PO 05/01/25 08:59 100 mg QDAY SANDY Administration Plan 54 y/o male with hx of 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 #LLE Cellulitis Knee punctured by screw 0.5 inch penetration, promptly washed. Now with 1 week of worsening edema and erythema. Drained in the ED. Patient still has full range of motion, however, painful 7/10. +2 pedal edema, erythema from ankle to thigh. Cellulitis pattern, not feeling very indurated on palpation. No leukocytosis, ESR 5CT LE with contrast showed diffuse cellulitis pattern involving the LLE. Zosyn and vanc given in the ED. TDAP vaccine/booster given in ED. ? CT w/ LLE showed diffuse cellulitis pattern, negative for osteomyelitis, negative for soft tissue ? Gram stain of wound ctx, revealed rare GPC. Pending final speciation. Plan: -Wound care referral in -[facility] wound cx:___ -Vanc (pharm dose) (03/31 - -CTX IV 1g Qday (03/31 - -tylenol 650 mg Pain 1-3 -Narco 5mg Q4hr for pain 4-6 -Pending CRP:___ -IV LR 575ml/hr maintenance fluids #Cirrhosis (alcohol) #Hep C (+2019) untreated He is AOx4 but appears fatigued, trouble opening his eyes in exam; however he is capable of eye contact, responds to names, follows commands, making intelligible responses GCS 15. Patient is unsure of his home medications, knows he takes ibuprofen for pain. Platelet 46 PT 14 INR 1.3 APTT 40.0 T. Bili 1.5 (chronic baseline) AST 50 Albumin 2.7. Ammonia 87. Plan: - Lactulose 20 mg PO TID - Lasix 40 mg IV daily - Spironolactone 100 mg PO daily - Rifaximin 550 mg PO BID - Daily weights - Transfuse pRBC if hgb <7 - Transfuse plt if plt <10 to prevent spontaneous hemorrhage - Limit Acetaminophen use <=2-3 g/day for mild 1-3 pain (650 mg PO q8h). Toradol 15 mg IV q6h PRN pain 4-7. Can do dilaudid 0.5 mg q6h if pain 8-10. Avoid NSAIDs 2/2 risk of hepatorenal syndrome. Health Maintenance: Code status: Full DVT prophylaxis: SCDs GI prophylaxis: Famotidine Diet: Regular Biggs: None Lines: PIV Supplemental O2: None Disposition: Med surg This case was discussed with my attending physician, Dr. Dejesus, and senior resident, Dr. King. Sherley Gutierrez DO PGY I Attending Provider Attestation/Addendum I have discussed and was present for the essential components of the history, physical examination, diagnosis, and treatment plan with the resident. I agree with the patient's care as documented by the resident and amended herein by me. Anton Dejesus DO. Although this document has been carefully reviewed, there may still be some phonetic and other typographical errors. These errors are purely grammatical due to imperfections in the software program and should not be construed in any way to compromise the substance of the patient's medical care during this visit. Patient seen and evaluated this AM. No acute events overnight, vital signs stable, patient afebrile, labs largely unremarkable with exception of a hemoglobin 10.7 which is stable, platelet count of 50, T. bili of 2.0, HIV negative, and an initial ammonia level of 87. As part of physical examination today we did unwrap the leg, was able to express a small amount of purulent fluid out of the patient's site of the I&D in the ED yesterday. As such we will de-escalate antibiotics to ceftriaxone and continue vancomycin at this time. Will also continue lactulose, rifaximin, spironolactone and Lasix. I did inquire about the patient's hepatitis C being untreated, he definitely wanted to know how he could get that treated who he should see, we will set him up in our [facility] for further follow-up and referrals out to infectious disease and gastroenterology as needed. Likely DC in 1 to 2 days pending clinical course
[2025-04-01 15:17] LABS: Glucose Estimated Average 77 mg/dL (80-131); Hemoglobin A1C 4.3 % Hgb (4.8-6.0)
--- NOTE | 2025-04-01 21:21 | PC.NURSE ---
Contacted lab regarding pt vanco trough, will be up shortly
[2025-04-01 22:02] LABS: Vancomycin,Trough 14.7 mcg/mL (5.0-10.0)
[2025-04-02] VITALS (8 sets, daily range): BP systolic 111–118; BP diastolic 62–68; PULSE 75–88; RESP 16–20; TEMP 36.6–37.3; O2SAT 97–98
[2025-04-02] MEDS: VANCOMYCIN/D5W 1500 MG IVPB 300 ML 120 MG IV ×2 (05:26→13:19)
[2025-04-02 05:44] LABS: Basophils # (Auto) 0.0 Thou/mm3 (0.0-0.2); Basophils % (Auto) 0 % (0-2.5); Eosinophils # (Auto) 0.2 Thou/mm3 (0.0-0.5); Eosinophils % (Auto) 6 % (0-10); Hematocrit 31.5 % (41.0-53.0); Hemoglobin 10.9 g/dL (13.5-16.0); Immature Granulocytes Auto 0.01 Thou/mm3 (0.00-0.00); Lymphocytes # (Auto) 0.9 Thou/mm3 (1.0-4.8); Lymphocytes % (Auto) 26 % (10-50); Mean Corpuscular HGB Conc 34.6 g/dl (31.0-37.0); Mean Corpuscular Hemoglobin 30.5 pg (25.0-35.0); Mean Corpuscular Volume 88 fL (80-100); Monocytes # (Auto) 0.3 Thou/mm3 (0.0-0.8); Monocytes % (Auto) 9 % (0-12); Neutrophils # (Auto) 1.9 Thou/mm3 (1.8-7.7); Neutrophils % (Auto) 59 % (37-80); Nucleated Red Blood Cell # 0.00 Thou/mm3 (0.00-0.00); Nucleated Red Blood Cell % 0 /100 WBC (0); RDW Standard Deviation 46.0 fL (35.1-43.9); Red Blood Count 3.57 Miln/mm3 (4.50-5.90); White Blood Count 3.3 Thou/mm3 (3.8-10.6)
[2025-04-02 05:48] LABS: Platelet Count 55 Thou/mm3 (140-440)
[2025-04-02 05:59] LABS: Slide Review Platelets confirmed
[2025-04-02 06:03] LABS: Alanine Aminotransferase 31 U/L (10-49); Albumin, Serum 2.2 gm/dL (3.5-5.0); Albumin/Globulin Ratio 0.7 (1.2-2.2); Alkaline Phosphatase 47 U/L (46-116); Anion Gap 5 (7-16); Aspartate Amino Transferase 58 U/L (0-34); BUN/Creatinine Ratio 12 Ratio (12-20); Bilirubin,Total 1.5 mg/dL (0.3-1.2); Blood Urea Nitrogen 7 mg/dL (9-23); Calcium 7.6 mg/dL (8.3-10.6); Calcium (Corrected) 9.0 mg/dL (8.5-10.1); Carbon Dioxide 27.3 mMol/L (20.0-31.0); Chloride 108 mMol/L (98-107); Creatinine (Component) 0.6 mg/dL (0.6-1.3); Estimated Creatinine Clearance 170.0 mL/min (>60); Globulin 3.0 gm/dL (2.3-3.5); Glucose 82 mg/dL (74-106); Magnesium 1.8 mg/dL (1.6-2.6); Osmolality,Calculated 276 (275-295); Phosphorous 3.8 mg/dL (2.4-5.1); Potassium 4.2 mMol/L (3.4-5.1); Sodium 140 mMol/L (136-145); Total Protein 5.2 gm/dL (5.7-8.2); eGFR > 60 See Note
[2025-04-02] MEDS: cefTRIAXone/D5w 1gm IV premix 1 GM/50 ML BAG IV (08:37)
[2025-04-02] MEDS: SPIRONOLACTONE 25 MG TABLET 100 MG PO (08:37)
[2025-04-02] MEDS: NICOTINE PATCH 21 MG/24 HR PATCH.TD24 TOP (08:37)
[2025-04-02] MEDS: FUROSEMIDE INJ 10 MG/ML 4ML VIAL 40 MG IVP (08:41)
[2025-04-02] MEDS: HEPARIN SOD INJ 5000 UNIT/ML VIAL SC ×2 (08:41→20:26)
[2025-04-02] MEDS: FAMOTIDINE INJ 10 MG/ML VIAL 2 ML 20 MG IVP ×2 (08:41→20:26)
[2025-04-02] MEDS: DOCUSATE SOD 100 MG CAPSULE PO (08:42)
--- NOTE | 2025-04-02 12:41 | PD.RESPRO ---
Documentation for date of: 04/02/25 Subjective Subjective Interval history: Patient seen examined at bedside, no overnight events. Will continue IV antibiotics for management of cellulitis, pancytopenia noted again today, platelet count greater than 50,000, cellulitis does look to improved relative to yesterday. Will wait for blood cultures to finalize, anticipate discharge in the next 24 hours. Exam Vital Signs Temp Pulse Resp BP Pulse Ox O2 Del Method 98.1 F 88 17 116/64 97 Room Air 04/02/25 11:49 04/02/25 11:49 04/02/25 11:49 04/02/25 11:49 04/02/25 11:49 04/02/25 11:49 Narrative Exam GENERAL APPEARANCE: AOx4. NAD, activity normal for age, well developed/ well nourished, no cyanosis, pallor, or diaphoresis. Appears fatigued, able to be roused, no scleral icterus, jaundice or mucousal darkening. HEENT: Normocephalic atraumatic, no facial trauma, neck is supple. Lids/conjunctiva normal. Mucous membranes moist, nares normal, lips/teeth normal uvula midline without oral pharyngeal erythema, exudate or swelling TMs normal bilaterally. No lymphangitis/lymphedema. CARDIAC: Regular rate and rhythm, S1+S2 heard Harsh S1. No murmurs, rubs, or gallops noted RESPIRATORY: respiratory effort normal, speaks in full sentences, no tripod position, no accessory muscle use. Lungs clear to auscultation without rhonchi, wheezes, rales ABDOMINAL: NBS. Soft, ND/NT. No evidence of fluid wave. No pulsatile masses on exam, rebound tenderness, Hess sign or pain over Mcburney's point. MUSCLES/EXTREMITIES: LLE 1 cm laceration with minimal oozing, erythematous tracking up from ankles to thigh, no induration felt, +2 bilateral pedal edema. Absent asterixis. NEUROLOGICAL: Speech is clear and appropriate. Normal level of consciousness. Gait and coordination not assessed. 5/5 strength in all extremities. PSYCH: Normal mood and affect. Judgement/competence is appropriate Objective Labs 04/03/25 05:01 04/03/25 05:01 Labs: Laboratory Results - last 24 hr 04/01/25 04/01/25 04/02/25 14:20 21:28 04:21 WBC 3.3 L RBC 3.57 L Hgb 10.9 L Hct 31.5 L MCV 88 MCH 30.5 MCHC 34.6 RDW Std Deviation 46.0 H Plt Count 55 L Neut % (Auto) 59 Lymph % (Auto) 26 [place] % (Auto) 9 Eos % (Auto) 6 Baso % (Auto) 0 Neut # (Auto) 1.9 Lymph # (Auto) 0.9 L [place] # (Auto) 0.3 Eos # (Auto) 0.2 Baso # (Auto) 0.0 Immature Gran # (Auto) 0.01 H Absolute Nucleated RBC 0.00 Immature Gran % 0 Nucleated RBC % 0 Sodium 140 Potassium 4.2 Chloride 108 H Carbon Dioxide 27.3 Anion Gap 5 L BUN 7 L Creatinine 0.6 Estim Creat Clear Calc 170.0 eGFR > 60 BUN/Creatinine Ratio [address] Glu mg/dL 77 L Hemoglobin A1c 4.3 L Calculated Osmolality 276 Calcium 7.6 L Corrected Calcium 9.0 Phosphorus 3.8 Magnesium 1.8 Total Bilirubin 1.5 H D AST 58 H ALT 31 Alkaline Phosphatase 47 Total Protein 5.2 L Albumin 2.2 L Globulin 3.0 Albumin/Globulin Ratio 0.7 L Vancomycin Trough 14.7 H Misc Test Result Platelets confirmed Quality Measures Quality Measures VTE prophylaxis Assessment & Plan Assessment Current Active Medications: Generic Name Dose Route Start Last Admin Trade Name Freq PRN Reason Stop Dose Admin Acetaminophen 650 mg 03/31/25 22:12 Acetaminophen 325 Mg Tablet PO 04/30/25 22:11 Q6H PRN Fever >100.4 or pain 1-3 Hydrocodone Bitart/Acetaminophen 1 tab 03/31/25 22:12 Hydrocodone/Apap 5/325 Tablet PO 04/05/25 22:11 Q4HR PRN PAIN SCALE 4-6 (Moderate Docusate Sodium 100 mg 04/01/25 09:00 04/02/25 08:42 Docusate Sod 100 Mg Capsule PO 05/01/25 08:59 100 mg QDAY SANDY Administration Protocol Famotidine 20 mg 04/01/25 09:00 04/02/25 08:41 Famotidine Inj 10 Mg/Ml Vial 2 Ml IVP 05/01/25 08:59 20 mg Q12HR SANDY Administration Furosemide 40 mg 04/01/25 09:00 04/02/25 08:41 Furosemide Inj 10 Mg/Ml 4ml Vial IVP 05/01/25 08:59 40 mg QDAY SANDY Administration Heparin Sodium (Porcine) 5,000 unit 04/02/25 09:00 04/02/25 08:41 Heparin Sod Inj 5000 Unit/Ml Vial SC 04/16/25 08:59 5,000 unit Q12HR SANDY Administration Protocol Vancomycin HCl/Dextrose 300 mls @ 120 mls/hr 04/01/25 08:00 04/02/25 05:26 Vancomycin/D5w 1500 Mg Ivpb IV 04/08/25 07:59 120 mls/hr Q8HR SANDY Administration Protocol Ceftriaxone Sodium/Dextrose 1 gm in 50 mls @ 100 mls/hr 04/01/25 11:56 04/02/25 08:37 Rocephin/D5w 1gm Iv Premix IV 04/08/25 11:55 100 mls/hr QDAY SANDY Administration Lactulose 20 gm 03/31/25 23:45 04/02/25 05:28 Lactulose Syrup 20 Gm/30 Ml Udc PO 04/30/25 23:44 Not Given TID [facility] Protocol Nicotine 21 mg 04/01/25 09:00 04/02/25 08:37 Nicotine Patch 21 Mg/24 Hr Patch.Td24 TOP 05/01/25 08:59 21 mg QDAY SANDY Administration Ondansetron HCl 4 mg 03/31/25 22:12 Ondansetron Inj 2 Mg/Ml Inj 2 Ml IVP 04/30/25 22:11 Q6H PRN NAUSEA OR VOMITING Protocol Pharmacy Consult 1 each 04/01/25 09:00 Vancomycin Pharmacy To Dose 1 Each Each IV 05/01/25 08:59 QDAY PRN CONSULT Rifaximin 550 mg 04/01/25 09:00 04/02/25 08:41 Rifaximin 550 Mg Tablet PO 04/08/25 08:59 550 mg BID SANDY Administration Spironolactone 100 mg 04/01/25 09:00 04/02/25 08:37 Spironolactone 25 Mg Tablet PO 05/01/25 08:59 100 mg QDAY SANDY Administration Plan 54 y/o male with hx of 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 #LLE Cellulitis Knee punctured by screw 0.5 inch penetration, promptly washed. Now with 1 week of worsening edema and erythema. Drained in the ED. Patient still has full range of motion, however, painful 12/01. +2 pedal edema, erythema from ankle to thigh. Cellulitis pattern, not feeling very indurated on palpation. No leukocytosis, ESR 5CT LE with contrast showed diffuse cellulitis pattern involving the LLE. Zosyn and vanc given in the ED. TDAP vaccine/booster given in ED. ? CT w/ LLE showed diffuse cellulitis pattern, negative for osteomyelitis, negative for soft tissue ? Gram stain of wound ctx, revealed rare GPC. Pending final speciation. Plan: -Continue ceftriaxone and vancomycin (03/31- -follow-up wound culture -Wound care referral in -Pain management #Cirrhosis (alcohol) #Hep C () untreated #Pancytopenia, thrombocytopenia #Hyperbilirubinemia, transaminitis #Hypoalbuminemia He is AOx4 but appears fatigued, trouble opening his eyes in exam; however he is capable of eye contact, responds to names, follows commands, making intelligible responses GCS 15. Patient is unsure of his home medications, knows he takes ibuprofen for pain. Platelet 46 PT 14 INR 1.3 APTT 40.0 T. Bili 1.5 (chronic baseline) AST 50 Albumin 2.7. Ammonia 87. Plan: - Lactulose 20 mg PO TID - Lasix 40 mg IV daily - Spironolactone 100 mg PO daily - Rifaximin 550 mg PO BID - Daily weights - Transfuse pRBC if hgb <7 - Transfuse plt if plt <10 to prevent spontaneous hemorrhage - Limit Acetaminophen use <=2-3 g/day for mild 1-3 pain (650 mg PO q8h). Toradol 15 mg IV q6h PRN pain 4-7. Can do dilaudid 0.5 mg q6h if pain 8-10. Avoid NSAIDs 2/2 risk of hepatorenal syndrome. Health Maintenance: Code status: Full DVT prophylaxis: SCDs GI prophylaxis: Famotidine Diet: Regular Biggs: None Lines: PIV Supplemental O2: None Disposition: Med surg Case discussed with Attending Physician DO Gardenia Luz MD Internal Medicine PGY-2 Disclaimer: This note was dictated by speech recognition. Minor errors in jumpbasting lining baster may be present due to voice recognition software. Attending Provider Attestation/Addendum I have discussed and was present for the essential components of the history, physical examination, diagnosis, and treatment plan with the resident. I agree with the patient's care as documented by the resident and amended herein by me. Anton Dejesus, DO. Although this document has been carefully reviewed, there may still be some phonetic and other typographical errors. These errors are purely grammatical due to imperfections in the software program and should not be construed in any way to compromise the substance of the patient's medical care during this visit.
[2025-04-02 20:17] LABS: Hepatitis A Antibody IgM Non Reactive (Non React); Hepatitis B Core Antibody IgM Non Reactive (Non React); Hepatitis B Surface Antigen Non Reactive (Non React); Hepatitis C Antibody Reactive (Non React)
--- NOTE | 2025-04-02 20:23 | PC.NURSE ---
called dr arndt regarding patients ordered heparin BID due now, plt is only 55 with no coagulation panel done. Dr arndt states to give heparin anyways because it is over 50.
[2025-04-02 21:38] LABS: Vancomycin,Trough 19.2 mcg/mL (5.0-10.0)
[2025-04-03] VITALS: BP 117/64; PULSE 79; RESP 18; TEMP 36.7; O2SAT 98
[2025-04-03 04:00] VITALS: BP 111/72; PULSE 77; RESP 20; TEMP 36.6; O2SAT 98
[2025-04-03 05:22] LABS: Basophils # (Auto) 0.0 Thou/mm3 (0.0-0.2); Basophils % (Auto) 1 % (0-2.5); Eosinophils # (Auto) 0.2 Thou/mm3 (0.0-0.5); Eosinophils % (Auto) 8 % (0-10); Hematocrit 32.4 % (41.0-53.0); Hemoglobin 11.3 g/dL (13.5-16.0); Immature Granulocytes Auto 0.01 Thou/mm3 (0.00-0.00); Lymphocytes # (Auto) 0.7 Thou/mm3 (1.0-4.8); Lymphocytes % (Auto) 26 % (10-50); Mean Corpuscular HGB Conc 34.9 g/dl (31.0-37.0); Mean Corpuscular Hemoglobin 30.5 pg (25.0-35.0); Mean Corpuscular Volume 87 fL (80-100); Monocytes # (Auto) 0.3 Thou/mm3 (0.0-0.8); Monocytes % (Auto) 11 % (0-12); Neutrophils # (Auto) 1.5 Thou/mm3 (1.8-7.7); Neutrophils % (Auto) 55 % (37-80); Nucleated Red Blood Cell # 0.00 Thou/mm3 (0.00-0.00); Nucleated Red Blood Cell % 0 /100 WBC (0); RDW Standard Deviation 44.6 fL (35.1-43.9); Red Blood Count 3.71 Miln/mm3 (4.50-5.90); White Blood Count 2.8 Thou/mm3 (3.8-10.6)
--- NOTE | 2025-04-03 05:33 | PC.NURSE ---
spoke with spa receptionist pharmacist regarding morning vancomycin dose at 0600. Pt is getting vancomycin 1.5g Q8hrs. 04/02 2100 vanco trough was 19.2 and vanco was held per protocol. pharmacist was contacted regarding whether to hold 0600 dose or give, pharmacist suggested to order a redraw and give based on result OR ask the doctor to order a 1x 1g dose and let in house pharmacy redose the following doses. Dr goodson was called regarding the matter and stated to hold the 0600 1.5g dose and call pharmacy when they open and ask them to redose the medication.
[2025-04-03 05:34] LABS: Platelet Count 59 Thou/mm3 (140-440)
[2025-04-03 05:46] LABS: Alanine Aminotransferase 40 U/L (10-49); Albumin, Serum 2.3 gm/dL (3.5-5.0); Albumin/Globulin Ratio 0.8 (1.2-2.2); Alkaline Phosphatase 46 U/L (46-116); Anion Gap 5 (7-16); Aspartate Amino Transferase 71 U/L (0-34); BUN/Creatinine Ratio 13 Ratio (12-20); Bilirubin,Total 1.5 mg/dL (0.3-1.2); Blood Urea Nitrogen 8 mg/dL (9-23); Calcium 7.9 mg/dL (8.3-10.6); Calcium (Corrected) 9.3 mg/dL (8.5-10.1); Carbon Dioxide 27.1 mMol/L (20.0-31.0); Chloride 107 mMol/L (98-107); Creatinine (Component) 0.6 mg/dL (0.6-1.3); Estimated Creatinine Clearance 170.0 mL/min (>60); Globulin 3.0 gm/dL (2.3-3.5); Glucose 79 mg/dL (74-106); Magnesium 1.8 mg/dL (1.6-2.6); Osmolality,Calculated 274 (275-295); Phosphorous 4.3 mg/dL (2.4-5.1); Potassium 4.2 mMol/L (3.4-5.1); Sodium 139 mMol/L (136-145); Total Protein 5.3 gm/dL (5.7-8.2); eGFR > 60 See Note
--- NOTE | 2025-04-03 06:02 | PC.NURSE ---
attempted to do med rec, patient states his family still has not brought home med list, he will ask again.
[2025-04-03 06:03] LABS: Slide Review Platelets confirmed
--- NOTE | 2025-04-03 06:05 | PC.NURSE ---
spoke to in house pharmacist evelia regarding redosing of 0600 vancomycin. Evelia states to just hold 0600 dose and they will work on redosing the medication.
[2025-04-03 07:21] VITALS: BP 112/61; PULSE 74; RESP 18; TEMP 36.4; O2SAT 99
[2025-04-03 09:32] VITALS: BP 112/61; PULSE 74
[2025-04-03] MEDS: FAMOTIDINE INJ 10 MG/ML VIAL 2 ML 20 MG IVP (09:32)
[2025-04-03] MEDS: FUROSEMIDE INJ 10 MG/ML 4ML VIAL 40 MG IVP (09:32)
[2025-04-03] MEDS: HEPARIN SOD INJ 5000 UNIT/ML VIAL SC (09:34)
[2025-04-03] MEDS: cefTRIAXone/D5w 1gm IV premix 1 GM/50 ML BAG IV (09:35)
--- NOTE | 2025-04-03 09:43 | PC.SS ---
Rounding: Pending cultures, poss DC late today home
[2025-04-03 09:44] VITALS: BP 112/61; PULSE 74
[2025-04-03] MEDS: SPIRONOLACTONE 25 MG TABLET 100 MG PO (09:44)
[2025-04-03] MEDS: Vancomycin Inj 1,500 MG in SODIUM CHLORIDE 0.9% 500 ML 500 ML 120 MG IV (11:23)
[2025-04-03 11:49] VITALS: BP 110/58; PULSE 86; RESP 18; TEMP 36.8; O2SAT 99
--- NOTE | 2025-04-03 13:40 | ESDS_ITS ---
<Statement entered by Edson King MD - 04/04/25 12:38> Patient seen and examined at bedside. I discussed and supervised with the corporate legal intern physician who took care of this patient. I personally saw and examined the patient. I agree with most of the assessment and plan. Plan of care discussed with attending Dr. Dejesus. Edson King MD PGY-2 Planned Discharge Date 04/03/25 DS: Providers Provider Date of admission: 03/31/25 22:44 Primary care physician: Physician No Primary/Family Admitting Provider: Gregorio Mclaughlin MD Attending Provider on Admission: Ghulam Dejesus DO Consults: 03/31/25 23:51 Health Equity Referral - Knowledge Deficit Routine Comment: Positive screening for knowledge deficit needs. Health Equity Referral - Nutrition Routine Comment: Positive screening for nutrition needs. Health Equity Referral - Transportation Routine Comment: Positive screening for transportation needs. Health Equity Referral - Utilities Routine Comment: Positive screening for utility assistance needs. 04/01/25 00:13 Referral Nutritional Services Routine Comment: Referral Wound Care Routine Comment: 04/03/25 12:24 Referral OP Wound Healing Dept Routine Comment: Left posterior and anterior lower leg Attending Provider on DC: Ghulam Dejesus DO Discharging Provider: Sherley Gutierrez DO DS: Diagnosis Problem List Completed Was Problem List Reviewed/Reconciled?: Yes Hospital Course Hospital Course Hospital course: 54-year-old male with history of cirrhotic liver disease due to alcohol abuse, untreated hepatitis C (2020), who presented with progressive swelling and redness of LLE following a screw punctured 5 days ago. Admitted for LLE cellulitis. Patient had come in with marked swelling, erythema, pain, and warmth of the left lower extremity. He received tetanus vaccine in the ED. CT scan of the lower extremity with contrast showed diffuse cellulitis pattern, negative for osteomyelitis. Zosyn and Vanco were given in the ED. Once inpatient, Zosyn was switched to ceftriaxone 1 g daily. During the 2-day hospital stay, patient remained afebrile without leukocytosis on labs. Gram stain of the wound culture, revealed rare GPC. By the second day, it speciated into MSSA, and antibiotics could be transitioned to oral alternatives. On antibiotic therapy, patient's symptoms improved remarkably, and the edema virtually resolved. As patient had comorbid alcoholic cirrhosis with elevated ammonia 87, prophylactic measures for hepatic encephalopathy including lactulose and rifaximin were administered. Patient received spironolactone and Lasix for the treatment of hepatic insufficiency. At the time of discharge, patient is medically stable and deemed safe to return to his previous state of living. Admission diagnoses: #LLE cellulitis #cirrhosis (alcoholic) #Hep C, untreated #Pancytopenia, thrombocytopenia, #Hyperbilirubinemia, transaminitis #Hypoalbuminemia #Discharge Instructions: You have been started on the following medications: - Keflex 500 mg: take 1 pill 2 times today, followed by 1 pill 4 times daily for 2 days Please continue taking all other medications as previously prescribed. Please follow up with your primary doctor in 7-10 days. If you don't have a primary doctor, follow up at the [facility]: [address], [place], [place] [id number] Please follow up with [facility] outpatient at [address] [place] [address]. Call [phone] for appointment. Wound care to back of right leg and from of left leg: Remove old dressings and shower daily. Wash hands with soap and water, Cleanse wounds with wound cleanser spray and pat dry with gauze. Cover both sites with foam dressing. Change once a day and as needed for falling off. (Foam dressings can be purchased at local [employer] [facility] or pharmacies. *If active bleeding occurs, apply tight dressing and return to MD or ER. ? Notify primary doctor or return to Emergency Room if any of the following: ? Fever above 100.6? F. ? Increased pain ? Increase swelling ? Red streaks around your wound ? Drainage becomes foul smelling or changes color ? The wound is larger or deeper ? The wound looks dried out or dark ? Bleeding that does not stop with holding pressure Please seek outpatient treatment with your PCP for hepatitis C. This case was discussed with my attending physician, Dr. Dejesus, and senior resident, Eloise Pope. Sherley Gutierrez, DO PGY I Status at Discharge Functional status at discharge: independent ambulation Overall status at discharge: patient is back to baseline Time Spent with Patient Time attestation: Total time spent providing and/or coordinating discharge services: More than 50% of the patient's total hospital stay Time spent: Greater than 30 minutes Exam Vital Signs Temp Pulse Resp BP Pulse Ox O2 Del Method 98.3 F 86 18 110/58 L 99 Room Air 04/03/25 11:49 04/03/25 11:49 04/03/25 11:49 04/03/25 11:49 04/03/25 11:49 04/03/25 11:49 Narrative Exam GENERAL APPEARANCE: AOx4. NAD, activity normal for age, well developed/ well nourished, no cyanosis, pallor, or diaphoresis. Appears fatigued, able to be roused, no scleral icterus, jaundice or mucousal darkening. HEENT: Normocephalic atraumatic, no facial trauma, neck is supple. Lids/conjunctiva normal. Mucous membranes moist, nares normal, lips/teeth normal uvula midline without oral pharyngeal erythema, exudate or swelling TMs normal bilaterally. No lymphangitis/lymphedema. CARDIAC: Regular rate and rhythm, S1+S2 heard Harsh S1. No murmurs, rubs, or gallops noted RESPIRATORY: respiratory effort normal, speaks in full sentences, no tripod position, no accessory muscle use. Lungs clear to auscultation without rhonchi, wheezes, rales ABDOMINAL: NBS. Soft, ND/NT. No evidence of fluid wave. No pulsatile masses on exam, rebound tenderness, Hess sign or pain over Mcburney's point. MUSCLES/EXTREMITIES: LLE 1 cm laceration with minimal oozing, erythematous tracking up from ankles to thigh, no induration felt, 1+ bilateral pedal edema. Absent asterixis. NEUROLOGICAL: Speech is clear and appropriate. Normal level of consciousness. Gait and coordination not assessed. 5/5 strength in all extremities. PSYCH: Normal mood and affect. Judgement/competence is appropriate Discharge Plan Plan Patient Disposition: HOME (Self Care) Patient condition on transfer: Stable Care Plan Goals: You have been started on the following medications: - Keflex 500 mg: take 1 pill 2 times today, followed by 1 pill 4 times daily for 2 days Please continue taking all other medications as previously prescribed. Please follow up with your primary doctor in 7-10 days. If you don't have a primary doctor, follow up at the [facility]: [address], [place] [address] Please follow up with [facility] outpatient at [address] [place] [address]. Call [phone] for appointment. Wound care to back of right leg and from of left leg: Remove old dressings and shower daily. Wash hands with soap and water, Cleanse wounds with wound cleanser spray and pat dry with gauze. Cover both sites with foam dressing. Change once a day and as needed for falling off. (Foam dressings can be purchased at local [employer] [facility] or pharmacies. *If active bleeding occurs, apply tight dressing and return to MD or ER. ? Notify primary doctor or return to Emergency Room if any of the following: ? Fever above 100.6? F. ? Increased pain ? Increase swelling ? Red streaks around your wound ? Drainage becomes foul smelling or changes color ? The wound is larger or deeper ? The wound looks dried out or dark ? Bleeding that does not stop with holding pressure Please seek outpatient treatment with your PCP for hepatitis C. Please return to ED if you develop new or worsening symptoms. Prescriptions/Referrals Prescriptions/Med Rec: New cephalexin 500 mg capsule 500 mg PO QID Qty: 10 0RF Continued furosemide [Lasix] 20 mg tablet 20 mg PO BID 30 Days Qty: 60 1RF metolazone 2.5 mg Tablet 2.5 mg PO QDAY 30 Days Qty: 30 1RF spironolactone 25 mg Tablet 25 mg PO BID 30 Days Qty: 60 1RF potassium chloride [Klor-Con 8] 8 mEq Tablet Extended Release 8 meq PO DAILY 30 Days Qty: 30 1RF pantoprazole [Protonix] 40 mg tablet,delayed release (DR/EC) 40 mg PO QDAY Qty: 30 0RF naproxen 500 mg tablet 500 mg PO BID PRN (Reason: pain) Qty: 14 0RF mupirocin 2 % ointment 1 applic topical BID Qty: 22 0RF Discontinued sulfamethoxazole-trimethoprim [Bactrim DS] 800-160 mg tablet 1 tab PO BID Qty: 20 0RF doxycycline hyclate 100 mg capsule 100 mg PO BID Qty: 14 0RF amoxicillin-pot clavulanate 875-125 mg tablet 1 tab PO BID Qty: 20 0RF doxycycline monohydrate 100 mg capsule 100 mg PO BID Qty: 20 0RF Referrals: Teja Barron MD [Physician, Wound Care] No Primary/Family,Physician [Primary Care Provider] Patient/Caregiver Discharge Instructions Discharge Activity: activity as tolerated Education Materials: Nutrition for Wound Healing, Abscess Drainage, Discharge Instructions for Cellulitis, Changing Dressing Dc Print Language: Guatemalan Stand Alone Forms: [employer] Award Info., Patient Portal Info Letter Discharge Order Discharge Orders: Discharge (Routine); Ordered 04/03/25 Ordered By: Edson King Quality Discharge Quality Measures VTE prophylaxis Attestestation MD Attestation I have discussed and was present for the essential components of the discharge history, physical examination, diagnosis, and discharge treatment plan with the resident. I agree with the patient's discharge care as documented by the resident and amended herein by me. Anton Dejesus DO. The patient understood all discharge instructions, all questions were answered satisfactorily. The patient was instructed to return to the Emergency Department is symptoms worsened or persisted. Patient cellulitis significantly improved at time of discharge, will discharge on a course of Keflex 500 mg p.o. 4 times daily for an additional 2.5 days. It was stressed to the patient that he must complete this course of antibiotics to ensure resolution and he understood. We also gave him information on following up with our [facility] within 1 week of discharge which she would like to do. Patient was stable, afebrile, tolerating p.o. intake and ambulatory at time of discharge home. Of note, patient did receive tetanus vaccine in the ED at this admission. Although this document has been carefully reviewed, there may still be some phonetic and other typographical errors. These errors are purely grammatical due to imperfections in the software program and should not be construed in any way to compromise the substance of the patient's medical care during this visit.
== END 2025-04-03 14:45 | disposition home or self-care (01) | DRG 351 ==
LOC: SERX 18:36 → SERHOLD 23:00 → S3NX 23:38
PROVIDERS: Family Medicine; Admitting Provider Student in an Organized Health Care Education/Training Program; Emergency Provider Emergency Medicine; Visit Provider Student in an Organized Health Care Education/Training Program
DX: S81.032A Puncture wound without foreign body, left knee, initial encounter (principal); L03.116 Cellulitis of left lower limb; K70.30 Alcoholic cirrhosis of liver without ascites; D63.8 Anemia in other chronic diseases classified elsewhere; B19.20 Unspecified viral hepatitis C without hepatic coma; D61.818 Other pancytopenia; F17.200 Nicotine dependence, unspecified, uncomplicated; E88.09 Other disorders of plasma-protein metabolism, not elsewhere classified; Z23 Encounter for immunization; K70.40 Alcoholic hepatic failure without coma
CPT/HCPCS: 36415; 71045; 73701; 80053; 80074; 80202; 81001; 82140; 83036; 83605; 83735; 84100; 84484; 85025; 85610; 85652; 85730; 86140; 86703; 87040; 87070; 87077; 87186; 87205; 90715; 93005; 93971; 96365; 96366; 96375; 99284; A4649; J0696; J1644; J1938; J2270; J2405; J2543; J3373; J3374; J3490; J7030; J7120; J7999; Q9967; A9270

== ENCOUNTER 2025-05-10 18:57 | Inpatient (IN) | payer MEDICAID, SELFPAY ==
[2025-05-10 19:58] VITALS: BP 120/70; PULSE 81; RESP 18; TEMP 36.8; O2SAT 99; BMI 32.5
--- NOTE | 2025-05-10 20:02 | XR_ITS ---
Examination: Tibia-Fibula, left, 2 views Technique: Tibia-fibula AP lateral 2 views Date and time of exam: May 10, 20252016 hours INDICATIONS: Open nonhealing wound left lower leg swelling and pain FINDINGS: No acute fracture No dislocation No foreign body Soft tissue defect posterior lower leg IMPRESSION: No cortical bone destruction No fracture
--- NOTE | 2025-05-10 20:02 | XR_ITS ---
Examination: Knee, right, 3 views Technique: Knee AP, lateral, oblique 3 views Date and time of exam: May 10, 2025, 2012 hours INDICATIONS: Left lower leg and knee swelling and pain this week, open wound after falling FINDINGS: Severe osteopenia Advanced tricompartment osteoarthritis Large knee effusion No adamaris cortical bone destruction No fracture IMPRESSION: Large knee effusion, clinical correlation advised Advanced tricompartment osteoarthritis
--- NOTE | 2025-05-10 20:03 | PD.EDRME ---
Rapid Medical Screening Exam RME Arrival date/time: 05/10/25 18:57 54M with history of cirrhosis, asthma and polysubstance use presented to ED with LLE pain/swelling/open wound and R knee pain w/o fall/trauma. Chief Complaint: General Adult/Misc Complain Vital signs: Vital Signs Temperature 98.2 F 05/10/25 19:58 Pulse Rate 81 05/10/25 19:58 Respiratory Rate 18 05/10/25 19:58 Blood Pressure 120/70 05/10/25 19:58 Pulse Oximetry (%) 99 05/10/25 19:58 Oxygen Delivery Method Room Air 05/10/25 19:58 Exam: R knee swelling. Ulcer on LLE Clinical Impression: Joint pain vs septic arthritis vs skin ulcer vs osteo vs cellulitis
[2025-05-10 20:42] LABS: Sed Rate (ESR) 17 mm/hr (0-20)
[2025-05-10 20:46] LABS: Basophils # (Auto) 0.0 Thou/mm3 (0.0-0.2); Basophils % (Auto) 0 % (0-2.5); Eosinophils # (Auto) 0.1 Thou/mm3 (0.0-0.5); Eosinophils % (Auto) 3 % (0-10); Hematocrit 31.0 % (41.0-53.0); Hemoglobin 10.6 g/dL (13.5-16.0); Immature Granulocytes Auto 0.02 Thou/mm3 (0.00-0.00); Lymphocytes # (Auto) 0.7 Thou/mm3 (1.0-4.8); Lymphocytes % (Auto) 14 % (10-50); Mean Corpuscular HGB Conc 34.2 g/dl (31.0-37.0); Mean Corpuscular Hemoglobin 29.9 pg (25.0-35.0); Mean Corpuscular Volume 88 fL (80-100); Monocytes # (Auto) 0.4 Thou/mm3 (0.0-0.8); Monocytes % (Auto) 7 % (0-12); Neutrophils # (Auto) 3.8 Thou/mm3 (1.8-7.7); Neutrophils % (Auto) 76 % (37-80); Nucleated Red Blood Cell # 0.00 Thou/mm3 (0.00-0.00); Nucleated Red Blood Cell % 0 /100 WBC (0); RDW Standard Deviation 47.0 fL (35.1-43.9); Red Blood Count 3.54 Miln/mm3 (4.50-5.90); White Blood Count 5.0 Thou/mm3 (3.8-10.6)
[2025-05-10 20:48] LABS: Platelet Count 72 Thou/mm3 (140-440)
[2025-05-10 21:00] LABS: Alanine Aminotransferase 35 U/L (10-49); Albumin, Serum 2.6 gm/dL (3.5-5.0); Albumin/Globulin Ratio 0.7 (1.2-2.2); Alkaline Phosphatase 62 U/L (46-116); Anion Gap 3 (7-16); Aspartate Amino Transferase 54 U/L (0-34); BUN/Creatinine Ratio 20 Ratio (12-20); Bilirubin,Total 1.7 mg/dL (0.3-1.2); Blood Urea Nitrogen 10 mg/dL (9-23); C-Reactive Protein 4.4 mg/dL (0.0-0.9); Calcium 8.1 mg/dL (8.3-10.6); Calcium (Corrected) 9.2 mg/dL (8.5-10.1); Carbon Dioxide 28.0 mMol/L (20.0-31.0); Chloride 105 mMol/L (98-107); Creatinine (Component) 0.5 mg/dL (0.6-1.3); Estimated Creatinine Clearance 196.7 mL/min (>60); Globulin 4.0 gm/dL (2.3-3.5); Glucose 91 mg/dL (74-106); Osmolality,Calculated 270 (275-295); Potassium 4.2 mMol/L (3.4-5.1); Sodium 136 mMol/L (136-145); Total Protein 6.6 gm/dL (5.7-8.2); eGFR > 60 See Note
[2025-05-10 21:03] LABS: Path Review Blood Smear Sent to Pathologist; Slide Review Platelets confirmed
--- NOTE | 2025-05-10 21:39 | PD.EDADULT ---
ED General RME/HPI General Chief complaint: Skin/Abscess/Foreign Body Stated complaint: BLE SWELLING W/ PAIN 02/01 Time Seen by Provider: 05/10/25 20:51 Arrival date/time: 05/10/25 18:57 RME / HPI RME / HPI narrative: 05/10/25 18:57 54M with history of cirrhosis, asthma and polysubstance use presented to ED with LLE pain/swelling/open wound and R knee pain w/o fall/trauma. DR. JAMES MAIN ED EVALUATION: 54 y/o male with Hx of CHF, Sciatica, HTN, Liver Cirrhosis, and Hepatitis C presents to ED c/o right knee pain, LLE pain, swelling, and redness x 2 days, back and shoulder pain s/p dislocation. IBU has been tried with no relief. Patient states his last fall was 4 days ago. In addition, patient also reports fever, cough, and runny nose x 2 days. Admits to recent marijuana and methamphetamine use, but denies recent alcohol, cocaine or IV drug abuse. Denies any history of STI or penile discharge. Denies allergies to medication. Exam: R knee swelling. Ulcer on LLE Impression: Joint pain vs septic arthritis vs skin ulcer vs osteo vs cellulitis Related Data Previous Rx's ?Medication ?Instructions ?Recorded furosemide 20 mg tablet (Lasix) 20 mg PO BID 1 month #60 tabs 12/04/22 metolazone 2.5 mg tablet 2.5 mg PO QDAY 1 month #30 tabs 12/04/22 pantoprazole 40 mg tablet,delayed 40 mg PO QDAY #30 tabs 12/04/22 release (Protonix) potassium chloride 8 mEq 8 meq PO DAILY 30 days #30 tabs 12/04/22 tablet,extended release (Klor-Con) spironolactone 25 mg tablet 25 mg PO BID 30 days #60 tabs 12/04/22 naproxen 500 mg tablet 500 mg PO BID PRN pain #14 tabs 12/05/24 mupirocin 2 % topical ointment 1 applic topical BID #22 grams 01/08/25 cephalexin 500 mg capsule 500 mg PO QID #10 caps 04/03/25 Allergies Allergy/AdvReac Type Severity Reaction Status Date / Time No Known Allergies Allergy Verified 05/10/25 19:01 Review of Systems Review of Systems Systems Reviewed: All systems reviewed, normal except as documented Past Medical History Past Medical History CARDIAC: Positive Congestive Heart Failure and Hypertension RESPIRATORY: Positive Chronic Obstructive Pulmonary Disease (COPD) and Asthma GASTROINTESTINAL: Positive Hepatitis (C) and Cirrhosis PSYCHO/SOCIAL: Positive Recreational Drug Use Social History SMOKING STATUS: Current every day smoker SUBSTANCE USE: marijuana and methamphetamine ALCOHOL: Never ED Exam Narrative Physical exam: GEN. APPEARANCE: The patient is alert awake oriented X-3 in distress, sitting, does not look ill/toxic. Patient has good eye contact. Patient is cooperative. VITALS: All vitals were reviewed and the pulse ox is 99% on room air which is normal according to my interpretation. HEENT: Normocephalic, atraumatic. Pupils are equal and reactive. Oral mucosa is moist. Patent Nares. NECK: Supple, nontender, no thyromegaly, no meningismus, no JVD CHEST: Symmetrical, atraumatic, and with equal expansion , Nontender on palpation no deformity and no crepitus. CARDIOVASCULAR: Heart regular rhythm no murmur or gallop rub or extra beats. LUNGS: Clear to auscultation bilaterally with symmetrical chest rise. No laboring tachypnea or wheezing. No intercostal subcostal retraction. No rales and no rhonchi. ABDOMEN: Soft, flat, nontender to palpation, no guarding or rebound tenderness. There are no abnormal masses palpated. Active and normal bowel sounds. EXTREMITIES: Nontender. No edema. No cyanosis. Patient is able to move all 4 extremities well, with full ROM and good CSM. SKIN: Warm and dry, no jaundice or rashes noted. MUSCULOSKELETAL: RLE: 2+ pitting edema, Rt knee patellar instability, not warm to touch, LLE: 3-4+ pitting edema up to the knee, redness, warmth, and swelling up to the groin, induration medially, no testicular involvement, perineal skin intact, 2 cm wound behind the left leg with good margins, no pus or discharge. NEURO: Patient is CLAY x 4, Cranial nerves II through XII grossly intact. There is no focal neurologic deficits noted. 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 PSYCHIATRIC: Patient is in normal mood and affect. Course Quality Measures none Orders Category Date Time Status Admit to Inpatient Status Routine Admission 05/11/25 02:52 Active Patient Condition Routine Admission 05/11/25 02:50 Ordered Bedside COVID-19 Antigen Test NOW Care 05/10/25 23:08 Active COVID-19 Screening Questionnaire NOW Care 05/10/25 22:[address] Screening NOW Care 05/10/25 22:02 Active Insert IV NOW Care 05/10/25 23:06 Active Miscellaneous Nursing Order NOW Care 05/11/25 02:50 Active Notify provider NEEDED Care 05/11/25 02:50 Active Wound Care NOW Care 05/10/25 20:[address] lower leg LT w con Stat Exams 05/10/25 22:02 Taken US venous doppler LE BI Stat Exams 05/10/25 22:03 Completed XR knee RT 3V Stat Exams 05/10/25 20:02 Completed XR tibia fibula LT 2V Stat Exams 05/10/25 20:02 Completed Blood Culture (Lab) Stat Lab 05/10/25 23:01 Received CBC Stat Lab 05/10/25 20:30 Completed CMP [Comprehensive Metabolic Panel] Stat Lab 05/10/25 20:30 Completed CRP [C-Reactive Protein] Stat Lab 05/10/25 20:30 Completed Drug Screen,Urine Stat Lab 05/11/25 02:11 Completed ESR [Sed Rate (ESR)] Stat Lab 05/10/25 20:30 Completed Lactic Acid [Lactate (Lactic Acid)] Stat Lab 05/10/25 22:56 Completed Path Review Blood Smear Stat Lab 05/10/25 20:30 Completed Morphine* Inj Med 05/10/25 22:12 Discontinued 2 mg IVP STAT STA Piper/Tazo Inj [Zosyn Inj] 4.5 gm Med 05/10/25 22:04 Discontinued Sodium Chloride 0.9% (Pop) [NS 0.9% mini bag] 100 ml IV STAT Vancomycin Pharmacy to Dose Med 05/10/25 22:04 Discontinued 1 each IV STAT STA Vancomycin/Water 1Gm Ivpb 200 ml Med 05/10/25 22:15 Discontinued IV 120 mls/hr Code Status Routine Oth 05/11/25 02:50 Ordered Vital Signs Vital signs: Vital Signs Temperature 98.2 F 05/10/25 19:58 Pulse Rate 81 12/17/25 19:58 Respiratory Rate 18 05/10/25 19:58 Blood Pressure 120/70 05/10/25 19:58 Pulse Oximetry (%) 99 05/10/25 19:58 Oxygen Delivery Method Room Air 05/10/25 19:58 Critical Care Time Critical Care Time Critical Care Time: Yes Total Critical Care Time (min.): 36 Attestation: Due to a high probability of clinically significant, life threatening deterioration, the patient required my highest level of preparedness to intervene emergently and I personally spent this critical care time directly and personally managing the patient. This critical care time included obtaining a history; examining the patient; pulse oximetry; ordering and review of studies; arranging urgent treatment with development of a management plan; evaluation of patient's response to treatment; frequent reassessment; and, discussions with other providers. This critical care time was performed to assess and manage the high probability of imminent, life-threatening deterioration that could result in multi-organ failure. It was exclusive of separately billable procedures and treating other patients and teaching time. Please see MDM section and the rest of the note for further information on patient assessment and treatment. Discharge Plan Plan Patient Disposition: Admit Acute Care w/in Hospital Problem List Clinical Impression: Cellulitis of left lower extremity, Leg pain, Polysubstance abuse, Swelling of lower extremity MDM Narrative [facility] hospital course (for use when minimal MDM required): Scribe Attestation: IYessica, am scribing for and in the presence of Dr. James. Provider Notation: Although this document has been carefully reviewed, there may still be some phonetic and other typographical errors. These errors are purely grammatical due to imperfections in the software program and should not be construed in any way to compromise the substance of the patient's medical care during this visit. 54M with history of cirrhosis, asthma and polysubstance use presented to ED with LLE pain/swelling/open wound and R knee pain w/o fall/trauma. Patient is a 54-year-old male with medical history notable for polysubstance use, cirrhosis, heart failure, and limiting the emergency department with concerns for bilateral lower extremity pain and swelling as well as right knee pain after a fall. Vital signs and exam as listed. Prior provider evaluated patient. Ordered labs Labs with evidence of normocytic anemia, hemoglobin 10.6, thrombocytopenia platelets 72 this is improved from patient's prior. No significant acute electrolyte abnormality, T. bili 1.7, this is within patient's patient's normal. CRP is elevated. X-ray of the right knee with a large knee effusion and tricompartmental arthritis. X-ray of the left tib-fib without any acute fracture dislocation or other abnormalities. On my evaluation patient has bilateral symmetric swelling to his knees, not warm not erythematous, no crepitus appreciated. Patient does have increased laxity of his patella ligaments, however no significant fluctuance appreciated. Left lower extremity has redness induration and warmth appreciated along the medial surface of the left leg starting in the thigh going down to the patient's left foot. Patient has exquisite tenderness along the surface. Patient has a proximately 2 cm wound to the posterior left leg with no associated erythema fluctuance or crepitus has good granulation tissue. States that this has been present for approximately 2 days associated with fever and chills at home. Patient does have a history of IV drug use remote. Continues to use methamphetamines. No other recent trauma. Concern for deep space infection ordered CT with contrast of the left lower extremity. Patient's perineum is intact, no scrotal tenderness, no penile discharge less likely Marie's gangrene. Ordered blood cultures, broad-spectrum antibiotics, will be judicious with fluids given patient has a history of heart failure and takes diuretics. Patient is hemodynamically stable. Will also provide pain control. ESR not elevated, CRP 4.4. Lower extremity ultrasound without any evidence of DVTs. CT of the lower extremity does not identify any abscesses. Discussed case with hospitalist service accepted patient for admission. Clinical Information Provided by: patient Medical Records reviewed [facility] Medical Records additional comments: Reviewed prior ED records from 03/31/25. Patient was seen for Cellulitis. Meds/Rx considered, not ordered None Labs/Rad/Tests considered, not ordered None Chronic Illness/Social Conditions which may negatively complicate care or outcome(s)-explain: ETOH/drugs/substance abuse EKG EKG not done Labs Labs: interpreted by me and see narrative above Imaging Imaging interpretation: interpreted by me and see narrative above Imaging Interpretation(s): RADIOLOGY Knee X-Ray: FINDINGS: Severe osteopenia Advanced tricompartment osteoarthritis Large knee effusion No adamaris cortical bone destruction No fracture IMPRESSION: Large knee effusion, clinical correlation advised Advanced tricompartment osteoarthritis Tibia/Fibula X-Ray: FINDINGS: No acute fracture No dislocation No foreign body Soft tissue defect posterior lower leg IMPRESSION: No cortical bone destruction No fracture Venous Doppler Study: Findings: Deep venous systems do not demonstrate abnormal echogenicity. All visualized deep veins exhibit compressibility. All visualized deep veins exhibit augmentation. Impression: Negative for deep vein thrombosis Lower Extremity CT: Findings: The visualized bones are unremarkable. No fracture or dislocation is noted. No joint effusion is noted. The visualized muscles are unremarkable with maintained intermuscular fat planes. Skin thickening and subcutaneous fat edema. Prominent left groin lymph nodes. No collections. Impression: Skin thickening associated with the subcutaneous fat edema, suspicious for cellulitis. Prominent left groin lymph nodes, probably reactive. No collections. Medication Administration(s) Medication Administration History Acetaminophen (Acetaminophen 325 Mg Tablet) 650 mg PO Q6H PRN PRN Reason: Fever >100.4 or pain 1-3 Stop: 06/10/25 03:00 Heparin Sodium (Porcine) (Heparin Sod Inj 5000 Unit/Ml Vial) 5,000 unit SC Q12H SANDY Stop: 05/25/25 03:14 Last Admin: 05/11/25 03:38 Dose: 5,000 unit Documented By: JAVI Co-signed By: CVL Ceftriaxone Sodium/Dextrose (Rocephin/D5w 1gm Iv Premix) 1 gm in 50 mls @ 100 mls/hr IV QDAY SANDY Stop: 05/18/25 08:59 Ketorolac Tromethamine (Ketorolac Inj 30 Mg/Ml Vial) 30 mg IVP Q6HR PRN PRN Reason: PAIN SCALE 4-10(Mod-Sev Stop: 05/16/25 03:05 Oxycodone/Acetaminophen (Oxycodone/Apap 5/325 Tablet) 1 tab PO Q6H PRN PRN Reason: BREAKTHROUGH PAIN Stop: 05/16/25 03:00 Pharmacy Consult (Vancomycin Pharmacy To Dose 1 Each Each) 1 each IV QDAY SANDY Stop: 06/10/25 08:59 Discontinued Medications Acetaminophen (Acetaminophen 325 Mg Tablet) 650 mg PO Q6H PRN PRN Reason: Fever >100.4 or pain Stop: 06/10/25 03:00 Piperacillin Sod/Tazobactam (Sod 4.5 gm/ Sodium Chloride) 100 mls @ 200 mls/hr IV STAT STA; Protocol Stop: 05/10/25 22:33 Last Infusion: 05/10/25 23:45 Dose: Infused Documented By: Admin: 05/10/25 23:09 Dose: 200 mls/hr Documented By: NICK Vancomycin HCl (Vancomycin/Water 1gm Ivpb) 200 mls @ 120 mls/hr IV .Q1H40M SANDY Stop: 05/11/25 01:34 Last Admin: 05/11/25 02:05 Dose: 120 mls/hr Documented By: Infusion: 05/11/25 01:39 Dose: Infused Documented By: Admin: 05/10/25 23:58 Dose: 120 mls/hr Documented By: NICK Morphine Sulfate (Morphine Sulf Inj 4 Mg/Ml Vial) 2 mg IVP STAT STA Stop: 05/10/25 22:13 Last Admin: 05/10/25 23:19 Dose: 2 mg Documented By: NICK Oxycodone/Acetaminophen (Oxycodone/Apap 5/325 Tablet) 1 tab PO Q6H PRN PRN Reason: BREAKTHROUGH PAIN Stop: 05/16/25 03:00 Pharmacy Consult (Vancomycin Pharmacy To Dose 1 Each Each) 1 each IV STAT STA Stop: 05/10/25 22:05 Last Admin: 05/10/25 23:57 Dose: Not Given Documented By: NICK Non-Admin Reason: Duplicate Medication on eMAR See above if any. Consultations/Discussions re: Management Consult #1: Date/time: 12/18/25 2:02 am Physician, specialty, service, details: Discussed with Dr. Ho for admission. Reviewed the patient?s HPI, PMHx, lab and/or radiology results. Discussed treatment plan. Will consult an admission to the hospitalist. Diagnosis Differential Diagnosis ED Complaint MDM: Cellulitis, Thrombosis, Sepsis Diagnoses ruled out and/or further discussions: Cellulitis of left lower extremity, Leg pain, Polysubstance abuse, Swelling of lower extremity
--- NOTE | 2025-05-10 22:02 | XR_ITS ---
Examination: CT left lower extremity with intravenous contrast 2-D sagittal reconstructions. 2-D coronal reconstructions. 3-D reconstructions. Date and time of exam: May 11, 2025, 0036 hours INDICATIONS: Left leg swelling and pain onset today CTDI: vol (mGy): 11.3 DLP: (mGycm): 1363 Technique: Multiple 1.25 mm axial sections of the left lower extremity with 60 cc [id number] have been obtained. 2-D sagittal and coronal reconstructions have been obtained. 3-D reconstructions have been obtained. Low dose protocols were performed. One or more of the following dose reduction techniques were used; automated exposure control, adjustment of the mA and/or KV according to patient size, use of iterative reconstruction technique. Findings: Small fat-containing femoral hernia Multiple nonspecific left groin lymph nodes Femur tibia fibula intact no osteomyelitis Diffuse edema in the subcutaneous fatty tissue especially medial thigh with skin thickening No soft tissue abscess Small knee effusion No definite myositis pattern IMPRESSION: Diffuse cellulitis pattern
--- NOTE | 2025-05-10 22:03 | XR_ITS ---
Examination: Venous duplex lower extremity sonogram, bilateral. Date and time of exam: May 10, 2025, 1016 hours INDICATIONS: Leg swelling and pain beginning 4 days ago Technique: Multiple sonographic images of the deep venous system have been obtained. B-mode/2-D grayscale imaging of vascular structures and Doppler spectral analysis (waveforms) and color performed Both legs are examined. Findings: Deep venous systems do not demonstrate abnormal echogenicity. All visualized deep veins exhibit compressibility. All visualized deep veins exhibit augmentation. Impression: Negative for deep vein thrombosis
[2025-05-10 23:07] VITALS: BP 133/78; PULSE 92; RESP 18; TEMP 36.9; O2SAT 99
[2025-05-10] MEDS: PIPER/TAZO INJ 4.5 GM in SODIUM CHLORIDE 0.9% (POP) 100 ML IV (23:09)
[2025-05-10 23:10] LABS: Lactate (Lactic Acid) 0.7 mMol/L (0.4-2.0)
[2025-05-10] MEDS: MORPHINE SULF INJ 4 MG/ML VIAL 2 MG IVP (23:19)
[2025-05-10] MEDS: VANCOMYCIN/WATER 1GM IVPB 200 ML IV (23:58)
[2025-05-11] VITALS (14 sets, daily range): BP systolic 93–135; BP diastolic 57–78; PULSE 78–89; RESP 16–97; TEMP 36.6–37.1; O2SAT 95–99; BMI 29.9
--- NOTE | 2025-05-11 01:57 | PRELIM_ITS ---
CT scan of the left lower extremity with intravenous contrast (axial sections with sagittal and coronal reformats); May 11, 2025 at 0036 hours Clinical History: Abscess Comparison: None available at the time of this report. Findings: The visualized bones are unremarkable. No fracture or dislocation is noted. No joint effusion is noted. The visualized muscles are unremarkable with maintained intermuscular fat planes. Skin thickening and subcutaneous fat edema. Prominent left groin lymph nodes. No collections. Impression: Skin thickening associated with the subcutaneous fat edema, suspicious for cellulitis. Prominent left groin lymph nodes, probably reactive. No collections. Report Electronically Signed By: Niko Crabtree 05/11/2025 1:57:09 AM [EST]
[2025-05-11] MEDS: VANCOMYCIN/WATER 1GM IVPB 200 ML IV ×3 (02:05→21:36)
[2025-05-11 02:45] LABS: Amphetamine/Methamp Scrn,U Positive (Negative); Barbiturate Screen,Urine Negative (Negative); Benzodiazepines Screen,Urine Negative (Negative); Benzoylecgonine Screen, Ur Negative (Negative); Fentanyl Screen,Urine Negative (Negative); Opiate Screen,Urine Positive (Negative); THC Screen,Urine Negative (Negative)
--- NOTE | 2025-05-11 03:24 | ESHP_ITS ---
<Statement entered by Igor Lockhart MD - 05/11/25 06:13> A 54-year-old male with significant past medical history of cirrhosis, previous alcohol abuse, untreated hepatitis C since 2019, chronic marijuana, chronic meth abuse recurrent left lower extremity cellulitis occurring since he met with accident a few years ago, recently discharged from hospital on 04/03/2025 and was treated for left lower extremity cellulitis presented to the hospital with chief complaints of worsening of swelling of left lower extremity swelling and associated with pain. He reported that he history of febrile episode a week ao bgefore the day of the hospitalization. Patient was reported to primary care provider for follow-up on the cellulitis and hepatitis C but did not see any doctor and still trying to get an appointment. Reported he regularly changes dressing of left lower extremity. Vitals at the time of admission are stable. Labs at the time of admission significant for hemoglobin 10.6, platelets 72, total bilirubin 1.7, AST 54, CRP 4.4, urine toxicology patient tested positive for opiates and methamphetamine. Endorsed methamphetamine use on the day of the admission. Venous Doppler study is negative for DVT. The left lower extremity CT was done which is negative for osteomyelitis. Blood cultures were sent. Started on ceftriaxone and vancomycin for the cellulitis as patient is immunosuppressed in the setting of cirrhosis and drug abuse. Resumed his diuretics # Recurrent left lower extremity cellulitis # Cirrhosis # Polysubstance abuse, methamphetamine, marijuana, tobacco smoking I have personally seen and examined the patient, agree with residents assessment and plan Patient plan of care was discussed with the attending physician, Dr. Koffi Lockhart, PGY2 Documentation for date of: 05/11/25 HPI History of Present Illness Chief complaint: Painful bumps on left thigh History of present illness: This patient is a 54-year-old male with a history of liver cirrhosis secondary to alcoholism and active hepatitis C infection, polysubstance use with prior IV drug use, and HFpEF 50% who presented to [facility] ED on 05/10 for painful bumps on left thigh. Patient was admitted for management of recurrent cellulitis with possibly reactive lymphadenopathy. According to the patient, he started having swelling of painful bumps on his left thigh about 2 days ago which makes it very difficult for the patient to walk as a result of those painful bumps. The patient has also noticed fevers and chills over the last 2 days. The patient has had cellulitis of his left leg for about 2 years. Supposedly, the patient had a spider bite in his posterior left leg, which resulted in a large ulcer where he could almost see bone. Since then, the patient received antibiotics for management, which has significantly improved his left lower extremity. That left lower extremity however is still erythematous, swollen, and painful to touch, however it is improving over time. The patient states that he probably has such a difficult time recovering from that spider bite because he frequently uses methamphetamine, and he knows that he recover slower as a result of that. However, what is new and what concerns the patient are the bumps in his left thigh that are painful to touch. The patient does not have a PCP, and so he decided to seek care at the ED. A last time the patient was here was on 03/31 to 04/03 for worsening cellulitis of his left lower extremity after being punctured by a screw. At that time, the patient was discharged on oral Keflex to complete a course of antibiotics for his worsening cellulitis and told to follow-up outpatient for management of his active hepatitis C infection. The patient is unsure exactly when he developed hepatitis C, but has not yet followed up with any outpatient physician for medical management of hepatitis C and currently still remains untreated. Otherwise, the patient only takes Lasix and spironolactone, however he is not sure what the dosages are. Patient endorses fevers and chills. Patient denies any shortness of breath, chest pain, abdominal pain, or dysuria. ED course: Initial vitals unremarkable Initial labs significant for hemoglobin 10.6, platelet 72, total bilirubin 1.7, AST 54, and CRP 4.4 Urine toxicology positive for methamphetamine (also positive for opiates, but patient received morphine prior to collecting urine) Left knee x-ray positive for large knee effusion Tibia/fibula x-ray unremarkable Bilateral lower extremity venous Doppler negative for DVT CT left lower extremity with IV contrast taken, pending final report, preliminary report identifies skin thickening with subcutaneous fat edema as suspicious for cellulitis along with prominent left groin lymph nodes Patient received Zosyn, vancomycin, and morphine Past Surgical History: Patient denies Current Medication(s): Patient takes furosemide and spironolactone, but otherwise does not know Allergies (w/ Reactions): NKDA Family History: Mother had CAD s/p CABG Alcohol Intake: Patient endorses drinking several shots of liquor daily for many years, does not drink anymore but does not remember exactly when he stopped Tobacco/Vape Use: Patient smoked a pack of cigarettes per week since he was 13 years old, but does not smoke anymore he is much because now his lungs are bad Other Drug Use: Patient smokes THC joints daily since he was 13 years old, continues to smoke THC. Patient used cocaine for many years, patient is unsure exactly how many, but has stopped using it a few years ago. Patient actively uses meth and has been using it supposedly for 3 years, with his last use 2 days ago. Review of Systems Review of Systems Systems Reviewed: All systems reviewed, normal except as documented Exam Vital Signs Temp Pulse Resp BP Pulse Ox O2 Del Method 98.3 F 83 20 129/78 99 Room Air 05/11/25 02:06 05/11/25 02:06 05/11/25 02:06 05/11/25 02:06 05/11/25 03:21 05/11/25 02:06 Narrative Exam Physical Exam: General: Alert, no acute distress. Skin: Warm, dry, intact. Head: Normocephalic, atraumatic. Eye: Injected conjunctiva, PERRL. Throat: Oral mucosa dry. Poor dentation, multiple teeth missing. No obvious lesions in oropharynx. Cardiovascular: Regular rate and rhythm, no murmur, +S1/S2. Respiratory: Lungs are clear to auscultation, respirations unlabored, no crackles, no wheezing. Gastrointestinal: Soft, nontender, non-distended. No guarding or rebound tenderness. Extremities: 2+ right lower extremity edema to knees, pain to light palpation. 2 + left lower extremity edema with significant erythema and large ulcer in posterior leg without drainage, measuring estimated 3cm x 5cm. Linear scabs along anterior distal thigh. Left proximal thigh near inguinal region has firm, tender to touch beads in a successive pattern, on palpation measuring about 0.5cm x 0.5cm Neuro: No focal deficits observed. Conversant, moving all extremities. No overt cerebellar signs/incoordination. Psychiatric: Cooperative, appropriate affect. Results: Labs 05/11/25 04:41 05/10/25 20:30 Labs: Short CBC 05/10/25 Range/Units 20:30 WBC 5.0 (3.8-10.6) Thou/mm3 Hgb 10.6 L (13.5-16.0) g/dL Hct 31.0 L (41.0-53.0) % Plt Count 72 L D (140-440) Thou/mm3 BMP 05/10/25 20:30 Sodium 136 Potassium 4.2 Chloride 105 Carbon Dioxide 28.0 BUN 10 Creatinine 0.5 L Glucose 91 Calcium 8.1 L Liver Function 05/10/25 Range/Units 20:30 Total Bilirubin 1.7 H (0.3-1.2) mg/dL AST 54 H (0-34) U/L ALT 35 (10-49) U/L Alkaline Phosphatase 62 (46-116) U/L Albumin 2.6 L (3.5-5.0) gm/dL Quality Measures Quality Measures VTE prophylaxis Medications Home Medications and Allergies Allergies Allergy/AdvReac Type Severity Reaction Status Date / Time No Known Allergies Allergy Verified 05/10/25 19:01 Visit Medications Acetaminophen (Acetaminophen 325 Mg Tablet) 650 mg PO Q6H PRN PRN Reason: Fever >100.4 or pain Stop: 06/10/25 03:00 Heparin Sodium (Porcine) (Heparin Sod Inj 5000 Unit/Ml Vial) 5,000 unit SC Q12H SANDY Stop: 05/25/25 03:14 Ketorolac Tromethamine (Ketorolac Inj 30 Mg/Ml Vial) 30 mg IVP Q6HR PRN PRN Reason: PAIN SCALE 4-10(Mod-Sev Stop: 05/16/25 03:05 Oxycodone/Acetaminophen (Oxycodone/Apap 5/325 Tablet) 1 tab PO Q6H PRN PRN Reason: BREAKTHROUGH PAIN Stop: 05/16/25 03:00 Discontinued Medications Piperacillin Sod/Tazobactam (Sod 4.5 gm/ Sodium Chloride) 100 mls @ 200 mls/hr IV STAT STA; Protocol Stop: 05/10/25 22:33 Last Infusion: 05/10/25 23:45 Dose: Infused Vancomycin HCl (Vancomycin/Water 1gm Ivpb) 200 mls @ 120 mls/hr IV .Q1H40M SANDY Stop: 05/11/25 01:34 Last Admin: 05/11/25 02:05 Dose: 120 mls/hr Morphine Sulfate (Morphine Sulf Inj 4 Mg/Ml Vial) 2 mg IVP STAT STA Stop: 05/10/25 22:13 Last Admin: 05/10/25 23:19 Dose: 2 mg Pharmacy Consult (Vancomycin Pharmacy To Dose 1 Each Each) 1 each IV STAT STA Stop: 05/10/25 22:05 Last Admin: 05/10/25 23:57 Dose: Not Given Assessment & Plan Plan This patient is a 54-year-old male with a history of liver cirrhosis secondary to alcoholism and active hepatitis C infection, polysubstance use with prior IV drug use, and HFpEF 50% who presented to [facility] ED on 05/10 for painful bumps on left thigh. Patient was admitted for management of recurrent cellulitis with possibly reactive lymphadenopathy. #Left lower extremity cellulitis, recurrent #Left inguinal lymphadenopathy, possibly reactive #Left knee effusion Patient noted to have a history of left lower extremity cellulitis that is recurrent with a large ulcer in the posterior portion of his left leg. Patient believes that this is secondary to a spider bite and that there is significantly poor healing due to chronic methamphetamine use. The leg still appears erythematous and painful, however it does seem improved compared to past few months. What is concerning the patient however is the new left inguinal lymphadenopathy which is making it difficult for the patient to walk. Left inguinal lymphadenopathy is likely reactive from his left lower extremity cellulitis. Diagnostic: Left knee x-ray on 05/10 positive for large knee effusion Bilateral lower extremity venous Doppler on 05/[address] of the left lower extremity with IV contrast on 05/10 taken, pending final report, preliminary report identifies skin thickening with subcutaneous fat edema as suspicious for cellulitis along with prominent left groin lymph nodes CRP elevated at 4.4 on admission Blood cultures collected on 05/10, pending MRSA nares ordered, pending Treatment: Vancomycin daily, pharmacy to dose (05/10?) Patient received one-time dose of Zosyn in ED on 05/10 Ceftriaxone 1 g daily (05/11?) De-escalate antibiotics as indicated Pain control with acetaminophen and ketorolac, oxycodone for breakthrough pain #Liver cirrhosis 2/2 #Hepatitis C, untreated #History of alcoholism #Transaminitis #Hyperbilirubinemia #Hypoalbuminemia Patient noted to have history of liver cirrhosis secondary to history of alcoholism and untreated hepatitis C. Patient was supposed to follow-up outpatient for treatment hepatitis C, however he never did. Diagnostic: Hepatitis C antibody reactive since 06/11/2019 AST on admission 54, bilirubin on admission 1.7, and albumin on admission 2.6 Liver ultrasound on 11/29/2022 did identify irregular contour of the liver, suggesting cirrhosis Treatment: Lasix 40 mg IV daily Spironolactone 25 mg twice daily, consider uptitrating to achieve 100:40 ratio of spironolactone to Lasix Will hold off on lactulose and rifaximin at this time as patient does not appear to be encephalopathic Fluid restriction 1500 cc daily Low-sodium diet modification #HFpEF, 50% 11/29/2022 Patient has history of HFpEF with previous echocardiogram showing 50% ejection fraction. Likely secondary to a combination of polysubstance use, alcoholism, and liver cirrhosis. Patient takes Lasix at home for management and does not have a mixing machine tender that he follows up with. Patient does have bilateral lower extremity edema on admission. Treatment: Lasix 40 mg IV daily Consider repeat echocardiogram as the patient's last echocardiogram was back in 2022 Cardiac diet modification Keep potassium above 4 and magnesium above 2 #Polysubstance use #Active methamphetamine use Patient does endorse a history of multiple substance use. The patient previously used cocaine for many years, but has since quit (patient does not know how many years it has been since he quit). Patient is actively using marijuana, smoking at least 1 joint a day and has been doing it daily since 13 years old. Patient is also actively using methamphetamine, started using it about 3 years ago, is not sure how much he uses daily, and his last use was 2 days ago. Diagnostic: Urine toxicology positive for methamphetamine and opiates (patient had received morphine a few hours before urine collection) Treatment: Consult patient on polysubstance use cessation #History of pancytopenia Patient noted to have history of pancytopenia as evidenced by decreased WBC, decreased hemoglobin, decreased RBC, and decreased platelet count during previous admission. Patient WBC has increased to within normal limits on admission. This is most likely secondary to the patient's liver cirrhosis Treatment: Patient to follow-up outpatient #Asthma? versus COPD? Patient endorses a history of asthma, however this has never been previously recorded in his chart. Patient is not on any inhaler medication, but has been smoking cigarettes, marijuana, and cocaine for many years. Patient states that when he does have trouble breathing, he also has chest pain that accompanies it. Treatment: Patient to follow-up outpatient DuoNebs every 6 hours as needed for shortness of breath or wheeze DVT Prophylaxis: Heparin GI Prophylaxis: N/A Bowel: [place] Diet: Cardiac, low sodium Biggs: N/A Lines: PIV Antibiotics: Ceftriaxone & Vancomycin Code Status: FULL Reason for Hospitalization: Recurrent cellulitis Other Barriers to Discharge: Blood cultures Patient plan of care was discussed with the senior resident Dr. Lockhart (PGY-2) and attending physician Dr. Koffi Penaloza, PGY1
[2025-05-11] MEDS: HEPARIN SOD INJ 5000 UNIT/ML VIAL SC ×2 (03:38→14:25)
[2025-05-11 05:02] LABS: Basophils # (Auto) 0.0 Thou/mm3 (0.0-0.2); Basophils % (Auto) 0 % (0-2.5); Eosinophils # (Auto) 0.2 Thou/mm3 (0.0-0.5); Eosinophils % (Auto) 5 % (0-10); Hematocrit 30.6 % (41.0-53.0); Hemoglobin 10.4 g/dL (13.5-16.0); Immature Granulocytes Auto 0.02 Thou/mm3 (0.00-0.00); Lymphocytes # (Auto) 0.8 Thou/mm3 (1.0-4.8); Lymphocytes % (Auto) 16 % (10-50); Mean Corpuscular HGB Conc 34.0 g/dl (31.0-37.0); Mean Corpuscular Hemoglobin 29.9 pg (25.0-35.0); Mean Corpuscular Volume 88 fL (80-100); Monocytes # (Auto) 0.3 Thou/mm3 (0.0-0.8); Monocytes % (Auto) 7 % (0-12); Neutrophils # (Auto) 3.3 Thou/mm3 (1.8-7.7); Neutrophils % (Auto) 72 % (37-80); Nucleated Red Blood Cell # 0.00 Thou/mm3 (0.00-0.00); Nucleated Red Blood Cell % 0 /100 WBC (0); Platelet Count 67 Thou/mm3 (140-440); RDW Standard Deviation 47.2 fL (35.1-43.9); Red Blood Count 3.48 Miln/mm3 (4.50-5.90); White Blood Count 4.6 Thou/mm3 (3.8-10.6)
[2025-05-11 05:23] LABS: Slide Review Platelets confirmed
[2025-05-11 05:25] LABS: Alanine Aminotransferase 30 U/L (10-49); Albumin, Serum 2.6 gm/dL (3.5-5.0); Albumin/Globulin Ratio 0.7 (1.2-2.2); Alkaline Phosphatase 54 U/L (46-116); Anion Gap 9 (7-16); Aspartate Amino Transferase 50 U/L (0-34); BUN/Creatinine Ratio 12 Ratio (12-20); Bilirubin,Total 3.0 mg/dL (0.3-1.2); Blood Urea Nitrogen 6 mg/dL (9-23); Calcium 7.8 mg/dL (8.3-10.6); Calcium (Corrected) 8.9 mg/dL (8.5-10.1); Carbon Dioxide 23.3 mMol/L (20.0-31.0); Chloride 105 mMol/L (98-107); Creatinine (Component) 0.5 mg/dL (0.6-1.3); Estimated Creatinine Clearance 189.1 mL/min (>60); Globulin 3.7 gm/dL (2.3-3.5); Glucose 77 mg/dL (74-106); Magnesium 1.8 mg/dL (1.6-2.6); Osmolality,Calculated 270 (275-295); Potassium 3.9 mMol/L (3.4-5.1); Sodium 137 mMol/L (136-145); Total Protein 6.3 gm/dL (5.7-8.2); eGFR > 60 See Note
--- NOTE | 2025-05-11 08:05 | ESPR_ITS ---
<Statement entered by Matt Cooper MD - 05/11/25 13:29> Overnight admission for cellulitis of the left lower extremity. Seen and examined at bedside and resting comfortably in bed. States that his rash started to worsen approximately 3 days ago prior to presentation. Also states that he was bitten by a spider where there is a nonpurulent ulcer behind his left calf and is not fully healed over the course of 2 years. Seen by wound nurse and no concerns for acute infection at this time. BP on the softer side and will continue to monitor but otherwise vital signs stable. CBC shows no leukocytosis and stable hemoglobin. CHEM panel shows T. bili increased from 1.7 to 3.0 but denies any abdominal pain. Will continue ceftriaxone and vancomycin and follow-up blood cultures. ----- Note reviewed and agree with care plan as documented. Please refer to the note below for further details. Plan discussed with attending physician Dr. Letty Cooper MD PGY-2 Internal Medicine Documentation for date of: 05/11/25 Subjective Subjective Interval history: Mr. Javed is doing well this morning. Pain is elicited on palpation of LLE, most prominent in calf area. Otherwise has been stable and understands the admission for IV Abx, as this is his 2nd admission in a month for cellulitis. Otherwise VSS. Exam Vital Signs Temp Pulse Resp BP Pulse Ox O2 Del Method 97.9 F 88 16 129/71 96 Room Air 05/11/25 05:55 05/11/25 05:55 05/11/25 05:55 05/11/25 05:55 05/11/25 05:55 05/11/25 04:13 Narrative Exam General: alert and oriented to self/place/year, no acute distress, able to speak full sentences HEENT: NC/AT, mucous membranes moist, bilateral sclera anicteric Cardiovascular: regular rate and rhythm, S1/S2 present, no murmurs appreciated Pulmonary: clear to auscultation bilaterally, no rales/rhonchi/wheezes Abdominal: soft, nontender, present bowel sounds Musculoskeletal: LLE swelling and tenderness consistent with cellulitis; posterior ulcer inferior to calf Skin: Warm, well-perfused Objective Labs 05/12/25 05:00 05/12/25 05:00 Labs: Laboratory Results - last 24 hr 05/10/25 05/10/25 05/11/25 20:30 22:56 02:11 WBC 5.0 RBC 3.54 L Hgb 10.6 L Hct 31.0 L MCV 88 MCH 29.9 MCHC 34.2 RDW Std Deviation 47.0 H Plt Count 72 L D Neut % (Auto) 76 Lymph % (Auto) 14 [place] % (Auto) 7 Eos % (Auto) 3 Baso % (Auto) 0 Neut # (Auto) 3.8 Lymph # (Auto) 0.7 L [place] # (Auto) 0.4 Eos # (Auto) 0.1 Baso # (Auto) 0.0 Immature Gran # (Auto) 0.02 H Absolute Nucleated RBC 0.00 Immature Gran % 0 Nucleated RBC % 0 Smear Path Review Sent to Pathologist ESR 17 Sodium 136 Potassium 4.2 Chloride 105 Carbon Dioxide 28.0 Anion Gap 3 L BUN 10 Creatinine 0.5 L Estim Creat Clear Calc 196.7 eGFR > 60 BUN/Creatinine Ratio 20 Glucose 91 Calculated Osmolality 270 L Lactic Acid 0.7 Calcium 8.1 L Corrected Calcium 9.2 Magnesium Total Bilirubin 1.7 H AST 54 H ALT 35 Alkaline Phosphatase 62 C-Reactive Prot, Quant 4.4 H Total Protein 6.6 Albumin 2.6 L Globulin 4.0 H Albumin/Globulin Ratio 0.7 L Urine Opiates Screen Positive A Urine Fentanyl Screen Negative Ur Barbiturates Screen Negative U Amphetamin/Meth Scrn Positive A U Benzodiazepines Scrn Negative U Cocaine Metab Screen Negative U Marijuana (THC) Screen Negative Misc Test Result Platelets confirmed 05/11/25 04:41 WBC 4.6 RBC 3.48 L Hgb 10.4 L Hct 30.6 L MCV 88 MCH 29.9 MCHC 34.0 RDW Std Deviation 47.2 H Plt Count 67 L Neut % (Auto) 72 Lymph % (Auto) 16 [place] % (Auto) 7 Eos % (Auto) 5 Baso % (Auto) 0 Neut # (Auto) 3.3 Lymph # (Auto) 0.8 L [place] # (Auto) 0.3 Eos # (Auto) 0.2 Baso # (Auto) 0.0 Immature Gran # (Auto) 0.02 H Absolute Nucleated RBC 0.00 Immature Gran % 0 Nucleated RBC % 0 Smear Path Review ESR Sodium 137 Potassium 3.9 Chloride 105 Carbon Dioxide 23.3 Anion Gap 9 BUN 6 L Creatinine 0.5 L Estim Creat Clear Calc 189.1 eGFR > 60 BUN/Creatinine Ratio 12 Glucose 77 Calculated Osmolality 270 L Lactic Acid Calcium 7.8 L Corrected Calcium 8.9 Magnesium 1.8 Total Bilirubin 3.0 H D AST 50 H ALT 30 Alkaline Phosphatase 54 C-Reactive Prot, Quant Total Protein 6.3 Albumin 2.6 L Globulin 3.7 H Albumin/Globulin Ratio 0.7 L Urine Opiates Screen Urine Fentanyl Screen Ur Barbiturates Screen U Amphetamin/Meth Scrn U Benzodiazepines Scrn U Cocaine Metab Screen U Marijuana (THC) Screen Misc Test Result Platelets confirmed Quality Measures Quality Measures VTE prophylaxis Assessment & Plan Assessment Current Active Medications: Generic Name Dose Route Start Last Admin Trade Name Freq PRN Reason Stop Dose Admin Acetaminophen 650 mg 05/11/25 03:30 Acetaminophen 325 Mg Tablet PO 06/10/25 03:00 Q6H PRN Fever >100.4 or pain 1-3 Albuterol/Ipratropium 3 ml 05/11/25 05:04 Albuterol/Ipratropium (Duoneb) Rt Jina 3 Ml Nebu INH 06/10/25 05:03 Q6HR PRN SHORTNESS OF BREATH OR WHEEZE Furosemide 40 mg 05/11/25 09:00 Furosemide Inj 10 Mg/Ml 4ml Vial IVP 06/10/25 08:59 QDAY SANDY Heparin Sodium (Porcine) 5,000 unit 05/11/25 03:15 05/11/25 03:38 Heparin Sod Inj 5000 Unit/Ml Vial SC 05/25/25 03:14 5,000 unit Q12H SANDY Administration Ceftriaxone Sodium/Dextrose 1 gm in 50 mls @ 100 mls/hr 05/11/25 21:00 Rocephin/D5w 1gm Iv Premix IV 05/18/25 20:59 HS SANDY Vancomycin HCl 200 mls @ 120 mls/hr 05/11/25 14:00 Vancomycin/Water 1gm Ivpb IV 05/18/25 13:59 Q8HR SANDY Protocol Ketorolac Tromethamine 30 mg 05/11/25 03:06 Ketorolac Inj 30 Mg/Ml Vial IVP 05/16/25 03:05 Q6HR PRN PAIN SCALE 4-10(Mod-Sev Oxycodone/Acetaminophen 1 tab 05/11/25 03:31 Oxycodone/Apap 5/325 Tablet PO 05/16/25 03:00 Q6H PRN BREAKTHROUGH PAIN Pharmacy Consult 1 each 05/11/25 09:00 Vancomycin Pharmacy To Dose 1 Each Each IV 06/10/25 08:59 QDAY PRN PROTOCOL Pharmacy Consult 1 each 05/11/25 05:14 Pharmacy To Consult Pneumovacc XX 06/10/25 05:13 PRN PRN CONSULT Sennosides 1 tab 05/11/25 04:42 Senna/Docusate Sod 1 Tab Tablet PO 06/10/25 04:41 QDAY PRN CONSTIPATION Protocol Spironolactone 25 mg 05/11/25 09:00 Spironolactone 25 Mg Tablet PO 06/10/25 08:59 BID SANDY Plan This patient is a 54-year-old male with a history of liver cirrhosis secondary to alcoholism and active hepatitis C infection, polysubstance use with prior IV drug use, and HFpEF 50% who presented to [facility] ED on 05/10 for painful bumps on left thigh. Patient was admitted for management of recurrent cellulitis with possibly reactive lymphadenopathy. #Left lower extremity cellulitis, recurrent #Left inguinal lymphadenopathy, possibly reactive #Left knee effusion #Left Leg Ulcer Patient noted to have a history of left lower extremity cellulitis that is recurrent with a large ulcer in the posterior portion of his left leg. Patient believes that this is secondary to a spider bite and that there is significantly poor healing due to chronic methamphetamine use. The leg still appears erythematous and painful, however it does seem improved compared to past few months. What is concerning the patient however is the new left inguinal lymphadenopathy which is making it difficult for the patient to walk. Left inguinal lymphadenopathy is likely reactive from his left lower extremity cellulitis. Diagnostic: Right Knee XR 05/10 positive for effusion - significant for osteoarthritis w/out adamaris cortical bone destruction nor fracture Bilateral lower extremity venous Doppler on 05/[address] of the left lower extremity with IV contrast on 05/10: Diffuse cellulitis pattern CRP elevated at 4.4 on admission Blood cultures collected on 05/10, pending MRSA nares ordered, pending 05/11 AM exam pt seen comfortably in bed, R knee deformity consistent with osteoarthritis noted, no errythema nor tenderness to palpation. LLE cellulitis consistent with previous exam L posterior leg ulcer @ calf, stage 2/3 -Vancomycin daily, pharmacy to dose (05/10?) -Ceftriaxone 1 g daily (05/11?) -Follow up abx cultures -De-escalate antibiotics as indicated -Pain control with acetaminophen and ketorolac, oxycodone for breakthrough pain -Wound consult placed for dressing managment #Liver cirrhosis 2/2 #Hepatitis C, untreated #History of alcoholism #Transaminitis #Hyperbilirubinemia #Hypoalbuminemia Hx of alcoholic cirrhosis and HepC infection, confirmed on Ig testing 05/10 AST on admission 54, bilirubin on admission 1.7, and albumin on admission 2.6 Liver ultrasound on 11/29/2022 did identify irregular contour of the liver, suggesting cirrhosis -Lasix 40 mg IV daily -Spironolactone 25 mg twice daily, consider uptitrating to achieve 100:40 ratio of spironolactone to Lasix -Fluid restriction 1500 cc daily -Low-sodium diet modification #HFpEF, 50% 11/29/2022 Patient has history of HFpEF with previous echocardiogram showing 50% ejection fraction. Likely secondary to a combination of polysubstance use, alcoholism, and liver cirrhosis. Patient takes Lasix at home for management and does not have a manager mechanical that he follows up with. Patient does have bilateral lower extremity edema on admission. -Lasix 40 mg IV daily -Cardiac diet modification -Keep potassium above 4 and magnesium above 2 #Polysubstance use #Active methamphetamine use Hx of extensive cocaine, methamphetamine use; has since quit cocaine UTOX (+) Opiates(previous administration in ED for pain) and methamphetamine -Dangers of continuous use and consequences discussed extensively with patient #History of pancytopenia #Anemia #Thrombocytopenia Anemia of chronic disease, thrombocytopenia 2/2 cirrhosis No acute issues -Follow up outpatient #Asthma #COPD #Obstructive Airway Disease Endorses extensive hx of smoking cigarettes Endorses hx of asthma diagnosed in adolescence 05/11 no appreciated wheezing on auscultation -Patient to follow-up outpatient -DuoNebs q6h PRN DVT Prophylaxis: Heparin GI Prophylaxis: N/A Bowel: Sennokot Diet: Cardiac, low sodium Biggs: N/A Lines: PIV Antibiotics: Ceftriaxone & Vancomycin Patient seen and discussed with attending physician Dr. Claudio Saenz and senior resident Dr. Matt Garcia MD PGY-1 Attending Provider Attestation/Addendum I have examined the patient, reviewed labs and imaging findings, discussed the case with the resident(s), and reviewed entered orders. I agree with the plan of care as outlined in this note. Dr. Letty MD
[2025-05-11] MEDS: FUROSEMIDE INJ 10 MG/ML 4ML VIAL 40 MG IVP (08:08)
[2025-05-11] MEDS: SPIRONOLACTONE 25 MG TABLET PO ×2 (08:08→20:32)
--- NOTE | 2025-05-11 11:21 | PC.PT ---
Patient is safe to ambulate to the bathroom and in the halls with 1 staff and a FWW. RN made aware.
[2025-05-11] MEDS: SILVER SULFADIAZINE CR 1% 25 GM TUBE TOP ×2 (12:14→20:47)
[2025-05-11] MEDS: cefTRIAXone/D5w 1gm IV premix 1 GM/50 ML BAG IV (20:32)
[2025-05-12] VITALS (9 sets, daily range): BP systolic 114–133; BP diastolic 58–81; PULSE 75–86; RESP 16–99; TEMP 36.1–37.5; O2SAT 94–99
[2025-05-12] MEDS: VANCOMYCIN/WATER 1GM IVPB 200 ML IV (05:23)
[2025-05-12 05:59] LABS: Basophils # (Auto) 0.0 Thou/mm3 (0.0-0.2); Basophils % (Auto) 1 % (0-2.5); Eosinophils # (Auto) 0.1 Thou/mm3 (0.0-0.5); Eosinophils % (Auto) 4 % (0-10); Hematocrit 29.9 % (41.0-53.0); Hemoglobin 10.1 g/dL (13.5-16.0); Immature Granulocytes Auto 0.02 Thou/mm3 (0.00-0.00); Lymphocytes # (Auto) 0.7 Thou/mm3 (1.0-4.8); Lymphocytes % (Auto) 18 % (10-50); Mean Corpuscular HGB Conc 33.8 g/dl (31.0-37.0); Mean Corpuscular Hemoglobin 30.0 pg (25.0-35.0); Mean Corpuscular Volume 89 fL (80-100); Monocytes # (Auto) 0.3 Thou/mm3 (0.0-0.8); Monocytes % (Auto) 7 % (0-12); Neutrophils # (Auto) 2.7 Thou/mm3 (1.8-7.7); Neutrophils % (Auto) 70 % (37-80); Nucleated Red Blood Cell # 0.00 Thou/mm3 (0.00-0.00); Nucleated Red Blood Cell % 0 /100 WBC (0); Platelet Count 74 Thou/mm3 (140-440); RDW Standard Deviation 47.0 fL (35.1-43.9); Red Blood Count 3.37 Miln/mm3 (4.50-5.90); White Blood Count 3.9 Thou/mm3 (3.8-10.6)
[2025-05-12 06:07] LABS: INR 1.3 (0.9-1.3); Partial Thromboplastin Time 39.3 Seconds (22.0-36.0); Prothrombin Time 13.9 Seconds (9.0-12.2)
[2025-05-12 06:31] LABS: Alanine Aminotransferase 26 U/L (10-49); Albumin, Serum 2.4 gm/dL (3.5-5.0); Albumin/Globulin Ratio 0.6 (1.2-2.2); Alkaline Phosphatase 50 U/L (46-116); Anion Gap 7 (7-16); Aspartate Amino Transferase 46 U/L (0-34); BUN/Creatinine Ratio 15 Ratio (12-20); Bilirubin,Total 1.7 mg/dL (0.3-1.2); Blood Urea Nitrogen 9 mg/dL (9-23); Calcium 7.8 mg/dL (8.3-10.6); Calcium (Corrected) 9.1 mg/dL (8.5-10.1); Carbon Dioxide 25.5 mMol/L (20.0-31.0); Chloride 107 mMol/L (98-107); Creatinine (Component) 0.6 mg/dL (0.6-1.3); Estimated Creatinine Clearance 157.5 mL/min (>60); Globulin 3.7 gm/dL (2.3-3.5); Glucose 77 mg/dL (74-106); Magnesium 1.8 mg/dL (1.6-2.6); Osmolality,Calculated 275 (275-295); Phosphorous 3.6 mg/dL (2.4-5.1); Potassium 4.3 mMol/L (3.4-5.1); Sodium 139 mMol/L (136-145); Total Protein 6.1 gm/dL (5.7-8.2); Vancomycin,Trough 7.8 mcg/mL (5.0-10.0); eGFR > 60 See Note
[2025-05-12 08:03] LABS: Slide Review Platelets confirmed
[2025-05-12] MEDS: FUROSEMIDE INJ 10 MG/ML 4ML VIAL 40 MG IVP (08:47)
[2025-05-12] MEDS: SPIRONOLACTONE 25 MG TABLET PO ×2 (08:47→20:19)
[2025-05-12] MEDS: SILVER SULFADIAZINE CR 1% 25 GM TUBE TOP ×2 (08:48→20:19)
[2025-05-12] MEDS: VANCOMYCIN/WATER 1250 MG IVPB 250 ML 120 MG IV ×2 (14:13→21:57)
--- NOTE | 2025-05-12 15:50 | PC.SS ---
rounding note: Patient is on i.v. antibiotics. Admitted for cellulitis. Patient is on iv. antibiotics. Wound care. Possible d/c Thursday. Hx: meth. Patient will need drug rehab resources provided at time of discharge.
--- NOTE | 2025-05-12 16:01 | ESPR_ITS ---
<Statement entered by Lenin Barrientos MD - 05/12/25 16:02> Patient was seen and examined at bedside. Vital stable, stable Miah downtrending to 1.7 which is his baseline. His symptoms regarding his cellulitis has been improving he denied any pain. Denied any overnight fever. Blood culture for the past 24 hours was negative. Pending final culture results for discharge. - Patient's plan and care discussed with my attending, Dr. Letty Barrientos MD Internal Medicine PGY-3 Documentation for date of: 05/12/25 Subjective Subjective Interval history: NAOE VSS. Cellulitis of LLE has greatly improved. Pending culture speciation, to remain on ceftriaxone and vancomycin. Exam Vital Signs Temp Pulse Resp BP Pulse Ox O2 Del Method 97.0 F 84 17 125/70 97 Room Air 05/12/25 12:00 05/12/25 12:00 05/12/25 12:00 05/12/25 12:00 05/12/25 12:00 05/12/25 12:00 Narrative Exam General: alert and oriented to self/place/year, no acute distress, able to speak full sentences HEENT: NC/AT, mucous membranes moist, bilateral sclera anicteric Cardiovascular: regular rate and rhythm, S1/S2 present, no murmurs appreciated Pulmonary: clear to auscultation bilaterally, no rales/rhonchi/wheezes Abdominal: soft, nontender, present bowel sounds Musculoskeletal: LLE cellulitis improved, noted by decreased sized from original evidenced by marker tracings from yesterday. RLE osteoarthritis, prominence of medial patellar noted on exam; stable Skin: Warm, well-perfused Objective Labs 05/13/25 05:40 05/13/25 05:40 Labs: Laboratory Results - last 24 hr 05/12/25 05:00 WBC 3.9 RBC 3.37 L Hgb 10.1 L Hct 29.9 L MCV 89 MCH 30.0 MCHC 33.8 RDW Std Deviation 47.0 H Plt Count 74 L Neut % (Auto) 70 Lymph % (Auto) 18 [place] % (Auto) 7 Eos % (Auto) 4 Baso % (Auto) 1 Neut # (Auto) 2.7 Lymph # (Auto) 0.7 L [place] # (Auto) 0.3 Eos # (Auto) 0.1 Baso # (Auto) 0.0 Immature Gran # (Auto) 0.02 H Absolute Nucleated RBC 0.00 Immature Gran % 1 H Nucleated RBC % 0 PT 13.9 H INR 1.3 APTT 39.3 H Sodium 139 Potassium 4.3 Chloride 107 Carbon Dioxide 25.5 Anion Gap 7 BUN 9 Creatinine 0.6 Estim Creat Clear Calc 157.5 eGFR > 60 BUN/Creatinine Ratio 15 Glucose 77 Calculated Osmolality 275 Calcium 7.8 L Corrected Calcium 9.1 Phosphorus 3.6 Magnesium 1.8 Total Bilirubin 1.7 H D AST 46 H ALT 26 Alkaline Phosphatase 50 Total Protein 6.1 Albumin 2.4 L Globulin 3.7 H Albumin/Globulin Ratio 0.6 L Vancomycin Trough 7.8 Misc Test Result Platelets confirmed Quality Measures Quality Measures VTE prophylaxis Assessment & Plan Assessment Current Active Medications: Generic Name Dose Route Start Last Admin Trade Name Freq PRN Reason Stop Dose Admin Acetaminophen 650 mg 05/11/25 03:30 Acetaminophen 325 Mg Tablet PO 06/10/25 03:00 Q6H PRN Fever >100.4 or pain 1-3 Albuterol/Ipratropium 3 ml 05/11/25 05:04 Albuterol/Ipratropium (Duoneb) Rt Jina 3 Ml Nebu INH 06/10/25 05:03 Q6HR PRN SHORTNESS OF BREATH OR WHEEZE Furosemide 40 mg 05/11/25 09:00 05/12/25 08:47 Furosemide Inj 10 Mg/Ml 4ml Vial IVP 06/10/25 08:59 40 mg QDAY SANDY Administration Heparin Sodium (Porcine) 5,000 unit 05/11/25 03:15 05/12/25 14:06 Heparin Sod Inj 5000 Unit/Ml Vial SC 05/25/25 03:14 Not Given Q12H SANDY Ceftriaxone Sodium/Dextrose 1 gm in 50 mls @ 100 mls/hr 05/11/25 21:00 05/11/25 20:32 Rocephin/D5w 1gm Iv Premix IV 05/18/25 20:59 100 mls/hr HS SANDY Administration Vancomycin HCl 250 mls @ 120 mls/hr 05/12/25 14:00 05/12/25 14:13 Vancomycin/Water 1250 Mg Ivpb IV 05/19/25 13:59 120 mls/hr Q8HR SANDY Administration Ketorolac Tromethamine 30 mg 05/11/25 03:06 Ketorolac Inj 30 Mg/Ml Vial IVP 05/16/25 03:05 Q6HR PRN PAIN SCALE 4-10(Mod-Sev Oxycodone/Acetaminophen 1 tab 05/11/25 03:31 Oxycodone/Apap 5/325 Tablet PO 05/16/25 03:00 Q6H PRN BREAKTHROUGH PAIN Pharmacy Consult 1 each 05/11/25 09:00 Vancomycin Pharmacy To Dose 1 Each Each IV 06/10/25 08:59 QDAY PRN PROTOCOL Pharmacy Consult 1 each 05/11/25 05:14 Pharmacy To Consult Pneumovacc XX 06/10/25 05:13 PRN PRN CONSULT Sennosides 1 tab 05/11/25 04:42 Senna/Docusate Sod 1 Tab Tablet PO 06/10/25 04:41 QDAY PRN CONSTIPATION Protocol Silver Sulfadiazine 0 gm 05/11/25 10:45 05/12/25 08:48 Silver Sulfadiazine Cr 1% 25 Gm Tube TOP 05/18/25 10:44 1 applicatio BID SANDY Administration Spironolactone 25 mg 05/11/25 09:00 05/12/25 08:47 Spironolactone 25 Mg Tablet PO 06/10/25 08:59 25 mg BID SANDY Administration Plan This patient is a 54-year-old male with a history of liver cirrhosis secondary to alcoholism and active hepatitis C infection, polysubstance use with prior IV drug use, and HFpEF 50% who presented to [facility] ED on 05/10 for painful bumps on left thigh. Patient was admitted for management of recurrent cellulitis with possibly reactive lymphadenopathy. #Left lower extremity cellulitis, recurrent #Left inguinal lymphadenopathy, possibly reactive #Left knee effusion #Left Leg Ulcer Patient noted to have a history of left lower extremity cellulitis that is recurrent with a large ulcer in the posterior portion of his left leg. Patient believes that this is secondary to a spider bite and that there is significantly poor healing due to chronic methamphetamine use. The leg still appears erythematous and painful, however it does seem improved compared to past few months. What is concerning the patient however is the new left inguinal lymphadenopathy which is making it difficult for the patient to walk. Left inguinal lymphadenopathy is likely reactive from his left lower extremity cellulitis. Diagnostic: Right Knee XR 05/10 positive for effusion - significant for osteoarthritis w/out adamaris cortical bone destruction nor fracture Bilateral lower extremity venous Doppler on 05/[address] of the left lower extremity with IV contrast on 05/10: Diffuse cellulitis pattern CRP elevated at 4.4 on admission Blood cultures collected on 05/10, pending MRSA nares ordered, pending 05/11 AM exam pt seen comfortably in bed, R knee deformity consistent with osteoarthritis noted, no errythema nor tenderness to palpation. LLE cellulitis consistent with previous exam L posterior leg ulcer @ calf, stage 2/3 -Vancomycin daily, pharmacy to dose (05/10?) -Ceftriaxone 1 g daily (05/11?) -Follow up abx sensitivities and cultures -De-escalate antibiotics as indicated -Pain control with acetaminophen and ketorolac, oxycodone for breakthrough pain -Wound consult placed for dressing managment #Liver cirrhosis 2/2 #Hepatitis C, untreated #History of alcoholism #Transaminitis #Hyperbilirubinemia #Hypoalbuminemia Hx of alcoholic cirrhosis and HepC infection, confirmed on Ig testing 05/10 AST on admission 54, bilirubin on admission 1.7, and albumin on admission 2.6 Liver ultrasound on 11/29/2022 did identify irregular contour of the liver, suggesting cirrhosis -Lasix 40 mg IV daily -Spironolactone 25 mg twice daily, consider uptitrating to achieve 100:40 ratio of spironolactone to Lasix -Fluid restriction 1500 cc daily -Low-sodium diet modification #HFpEF, 50% 11/29/2022 Patient has history of HFpEF with previous echocardiogram showing 50% ejection fraction. Likely secondary to a combination of polysubstance use, alcoholism, and liver cirrhosis. Patient takes Lasix at home for management and does not have a large animal veterinarian that he follows up with. Patient does have bilateral lower extremity edema on admission. -Lasix 40 mg IV daily -Cardiac diet modification -Keep potassium above 4 and magnesium above 2 #Polysubstance use #Active methamphetamine use Hx of extensive cocaine, methamphetamine use; has since quit cocaine UTOX (+) Opiates(previous administration in ED for pain) and methamphetamine -Dangers of continuous use and consequences discussed extensively with patient #History of pancytopenia #Anemia #Thrombocytopenia Anemia of chronic disease, thrombocytopenia 2/2 cirrhosis No acute issues -Follow up outpatient #Asthma #COPD #Obstructive Airway Disease Endorses extensive hx of smoking cigarettes Endorses hx of asthma diagnosed in adolescence 05/11 no appreciated wheezing on auscultation -Patient to follow-up outpatient -DuoNebs q6h PRN DVT Prophylaxis: Heparin GI Prophylaxis: N/A Bowel: Sennokot Diet: Cardiac, low sodium Biggs: N/A Lines: PIV Antibiotics: Ceftriaxone & Vancomycin Patient seen and discussed with attending physician Dr. Claudio Saenz and senior resident Dr. Lenin Garcia MD PGY-1 Attending Provider Attestation/Addendum I have examined the patient, reviewed labs and imaging findings, discussed the case with the resident(s), and reviewed entered orders. I agree with the plan of care as outlined in this note. Dr. Letty MD
[2025-05-12] MEDS: cefTRIAXone/D5w 1gm IV premix 1 GM/50 ML BAG IV (20:19)
[2025-05-13] VITALS (7 sets, daily range): BP systolic 97–122; BP diastolic 55–77; PULSE 69–81; RESP 16–98; TEMP 36.3–37.1; O2SAT 96–99
[2025-05-13] MEDS: VANCOMYCIN/WATER 1250 MG IVPB 250 ML 120 MG IV (05:43)
[2025-05-13 06:05] LABS: Basophils # (Auto) 0.0 Thou/mm3 (0.0-0.2); Basophils % (Auto) 1 % (0-2.5); Eosinophils # (Auto) 0.2 Thou/mm3 (0.0-0.5); Eosinophils % (Auto) 6 % (0-10); Hematocrit 31.9 % (41.0-53.0); Hemoglobin 11.1 g/dL (13.5-16.0); Immature Granulocytes Auto 0.03 Thou/mm3 (0.00-0.00); Lymphocytes # (Auto) 0.8 Thou/mm3 (1.0-4.8); Lymphocytes % (Auto) 20 % (10-50); Mean Corpuscular HGB Conc 34.8 g/dl (31.0-37.0); Mean Corpuscular Hemoglobin 30.2 pg (25.0-35.0); Mean Corpuscular Volume 87 fL (80-100); Monocytes # (Auto) 0.3 Thou/mm3 (0.0-0.8); Monocytes % (Auto) 7 % (0-12); Neutrophils # (Auto) 2.6 Thou/mm3 (1.8-7.7); Neutrophils % (Auto) 66 % (37-80); Nucleated Red Blood Cell # 0.00 Thou/mm3 (0.00-0.00); Nucleated Red Blood Cell % 0 /100 WBC (0); Platelet Count 82 Thou/mm3 (140-440); RDW Standard Deviation 46.0 fL (35.1-43.9); Red Blood Count 3.67 Miln/mm3 (4.50-5.90); White Blood Count 3.9 Thou/mm3 (3.8-10.6)
[2025-05-13 06:26] LABS: Alanine Aminotransferase 28 U/L (10-49); Albumin, Serum 2.4 gm/dL (3.5-5.0); Albumin/Globulin Ratio 0.6 (1.2-2.2); Alkaline Phosphatase 51 U/L (46-116); Anion Gap 6 (7-16); Aspartate Amino Transferase 53 U/L (0-34); BUN/Creatinine Ratio 15 Ratio (12-20); Bilirubin,Total 1.4 mg/dL (0.3-1.2); Blood Urea Nitrogen 9 mg/dL (9-23); Calcium 8.2 mg/dL (8.3-10.6); Calcium (Corrected) 9.5 mg/dL (8.5-10.1); Carbon Dioxide 25.8 mMol/L (20.0-31.0); Chloride 107 mMol/L (98-107); Creatinine (Component) 0.6 mg/dL (0.6-1.3); Estimated Creatinine Clearance 157.5 mL/min (>60); Globulin 4.0 gm/dL (2.3-3.5); Glucose 83 mg/dL (74-106); Magnesium 1.7 mg/dL (1.6-2.6); Osmolality,Calculated 275 (275-295); Phosphorous 4.4 mg/dL (2.4-5.1); Potassium 4.3 mMol/L (3.4-5.1); Sodium 139 mMol/L (136-145); Total Protein 6.4 gm/dL (5.7-8.2); eGFR > 60 See Note
[2025-05-13] MEDS: SPIRONOLACTONE 25 MG TABLET PO (09:25)
[2025-05-13] MEDS: FUROSEMIDE INJ 10 MG/ML 4ML VIAL 40 MG IVP (09:26)
[2025-05-13] MEDS: SILVER SULFADIAZINE CR 1% 25 GM TUBE TOP (09:28)
[2025-05-13 12:44] LABS: Vancomycin,Trough 16.1 mcg/mL (5.0-10.0)
--- NOTE | 2025-05-13 13:05 | PC.SS ---
Lpn Medical Assistant (IRVIN) Carito met with the patient at the bedside to complete an initial assessment and discuss a discharge plan. Patient is alert and oriented to person, place, time, and situation, and provided verbal consent to participate in the assessment. The patient was admitted for cellulitis. Patient is Jaron Javed, 54 y/o Indonesian-speaking male residing in [place]; patient is unable to recall his current address. Patient's mailing address is at his sister's home, [address], [facility], [place] [address]. Patient designated his sister, Carmela Suarez, , as his surrogate medical decision maker. Patient is receiving Social Security disability benefits. Patient reports that at baseline, he uses a cane to ambulate; PT recommended a FWW. SW ordered the FWW through [employer] and will be delivered to his sister's home, per the patient's request. The patient does not use oxygen at home and is also not connected to dialysis. The patient's pharmacy is [facility]. Patient's PCP is Dr. Roy in [place]. The patient's discharge plan is to return to his RV, and his friend will provide transportation. The health social work professor educated the patient on substance abuse cessation and provided community, mental health, and substance abuse resources. Surrogate medical decision maker: Carmela Porter, Discharge plan: Home
--- NOTE | 2025-05-13 13:47 | ESDS_ITS ---
<Statement entered by Matt Cooper MD - 05/13/25 13:48> Note reviewed and agree with care plan as documented. Please refer to the note below for further details. Plan discussed with attending physician Dr. Letty Cooper MD PGY-2 Internal Medicine Planned Discharge Date 05/13/25 DS: Providers Provider Date of admission: 05/11/25 02:52 Primary care physician: Physician No Primary/Family Admitting Provider: Jim Rain DO Attending Provider on Admission: Jim Rain DO Consults: 05/11/25 03:24 Referral Wound Care Routine Comment: Health Equity Referral - Knowledge Deficit Routine Comment: Positive screening for knowledge deficit needs. 05/11/25 03:25 Referral OP Wound Healing Dept Routine Comment: Instructions: LLE ulcer 05/11/25 05:19 Referral Physical Therapy Routine Comment: Physician Instructions: Referral Respiratory Therapy Routine Comment: Attending Provider on DC: Matt Cooper MD Discharging Provider: Matt Cooper MD DS: Diagnosis Problem List Completed Was Problem List Reviewed/Reconciled?: Yes Hospital Course Hospital Course Hospital course: Mr. 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 Of note, one month ago he was treated for the same condition: swelling and errythema of his LLE, which improved with IV and oral antibiotics at discharge. He was started on empiric coverage, Vancomycin and ceftriaxone. By day 2 of admission, cellulitis had greatly improved; no bacterial cultures speciated. Patient was safely discharged home on oral antibiotics after day 2 of admission with psychosocial rehabilitation counselor to follow up with primary care. Patient was also counselled on drug cessation, to seek HepC treatment, and educated on strict return precautions. Discharge diagnoses #Left lower extremity cellulitis, recurrent #Left inguinal lymphadenopathy, possibly reactive #Left knee effusion #Left Leg Ulcer #Liver cirrhosis 2/2 #Hepatitis C, untreated #History of alcoholism #Transaminitis #Hyperbilirubinemia #Hypoalbuminemia #HFpEF, 50% 11/29/2022 #Polysubstance use #Active methamphetamine use #History of pancytopenia #Anemia #Thrombocytopenia #Asthma #COPD #Obstructive Airway Disease Discharge Instructions * Follow up at [facility], [address] [facility]. Call [phone] for appontment. * Shower daily, remove old dressing than change after showering. * Wound care to left lower leg: Wash hands with soap and water. Cleanse well with normal saline. Pat dry with gauze. Wash hands again. Apply thin layer of silvadene cream and cover with foam dressing or dry gauze wrap. Change twice a day and as needed for falling off or soiling. * If active bleeding occurs, apply tight dressing and return to MD or ER.? * Notify primary doctor or return to Emergency Room if any of the following:? Fever above 100.6? F.? Increased pain? Increase swelling? Red streaks around your wound? Drainage becomes foul smelling or changes color? The wound is larger or deeper? The wound looks dried out or dark? Bleeding that does not stop with holding pressure * Please take your antibiotics as prescribed, as well as your home medications * Take great caution around needles and sharps that may compromise your skin barrier, especially in your lower extremities * Please follow up with your primary care provider within two weeks * For any concerns regarding fever, nausea/vomiting or worsening symptoms please return to the Emergency Department Status at Discharge Cognitive/behavioral status at discharge: stable at baseline Time Spent with Patient Time attestation: Total time spent providing and/or coordinating discharge services: Time spent: Greater than 30 minutes Exam Vital Signs Temp Pulse Resp BP Pulse Ox O2 Del Method 98.0 F 69 16 97/55 L 96 Room Air 05/13/25 11:35 05/13/25 11:35 05/13/25 11:35 05/13/25 11:35 05/13/25 11:35 05/13/25 11:35 Narrative Exam General: alert and oriented to self/place/year, no acute distress, able to speak full sentences HEENT: NC/AT, mucous membranes moist, bilateral sclera anicteric Cardiovascular: regular rate and rhythm, S1/S2 present, no murmurs appreciated Pulmonary: clear to auscultation bilaterally, no rales/rhonchi/wheezes Abdominal: soft, nontender, present bowel sounds Musculoskeletal: no peripheral edema; swelling has since decreased and patient's left leg ulcer well-managed with wound dressing Skin: Warm, well-perfused Discharge Plan Plan Patient Disposition: HOME (Self Care) Care Plan Goals: * Follow up at [facility], [address] [place] [address]. Call [phone] for appontment. * Shower daily, remove old dressing than change after showering. * Wound care to left lower leg: Wash hands with soap and water. Cleanse well with normal saline. Pat dry with gauze. Wash hands again. Apply thin layer of silvadene cream and cover with foam dressing or dry gauze wrap. Change twice a day and as needed for falling off or soiling. * If active bleeding occurs, apply tight dressing and return to MD or ER.? * Notify primary doctor or return to Emergency Room if any of the following:? Fever above 100.6? F.? Increased pain? Increase swelling? Red streaks around your wound? Drainage becomes foul smelling or changes color? The wound is larger or deeper? The wound looks dried out or dark? Bleeding that does not stop with holding pressure * Please take your antibiotics as prescribed, as well as your home medications * Take great caution around needles and sharps that may compromise your skin barrier, especially in your lower extremities * Please follow up with your primary care provider within two weeks * For any concerns regarding fever, nausea/vomiting or worseing symptoms please return to the Emergency Department Prescriptions/Referrals Prescriptions/Med Rec: New doxycycline hyclate 100 mg capsule 100 mg PO BID 4 Days Qty: 8 0RF acetaminophen [8HR Muscle Aches-Pain] 650 mg tablet extended release 650 mg PO Q6H PRN (Reason: Fever >100.4 or pain 1-3) Qty: 20 0RF Continued furosemide [Lasix] 20 mg tablet 20 mg PO BID 30 Days Qty: 60 1RF metolazone 2.5 mg Tablet 2.5 mg PO QDAY 30 Days Qty: 30 1RF spironolactone 25 mg Tablet 25 mg PO BID 30 Days Qty: 60 1RF potassium chloride [Klor-Con 8] 8 mEq Tablet Extended Release 8 meq PO DAILY 30 Days Qty: 30 1RF pantoprazole [Protonix] 40 mg tablet,delayed release (DR/EC) 40 mg PO QDAY Qty: 30 0RF naproxen 500 mg tablet 500 mg PO BID PRN (Reason: pain) Qty: 14 0RF mupirocin 2 % ointment 1 applic topical BID Qty: 22 0RF Discontinued cephalexin 500 mg capsule 500 mg PO QID Qty: 10 0RF Referrals: No Primary/Family,Physician [Primary Care Provider] Patient/Caregiver Discharge Instructions Education Materials: Nutrition for Wound Healing, Wound Care Dc, Preventing Surgical Site Infections Print Language: Danish Stand Alone Forms: Nancy Award Info., Patient Portal Info Letter Discharge Order Discharge Orders: Discharge (Routine); Ordered 05/13/25 Ordered By: Matt Jovel Rust Quality Discharge Quality Measures none MD Attestestation MD Attestation I have examined the patient, reviewed labs and imaging findings, discussed the case with the resident(s), and reviewed entered orders. I agree with the plan of care as outlined in this note. Time Spent: [address] Letty MD
== END 2025-05-13 13:18 | disposition home or self-care (01) | DRG 383 ==
LOC: SERX 21:36 → SERHOLD 05-11 03:23 → S3NX 05-11 04:55
PROVIDERS: Physician Assistant; Admitting Provider Internal Medicine; Emergency Provider Emergency Medicine; Visit Provider Internal Medicine
DX: L03.116 Cellulitis of left lower limb (principal); K70.30 Alcoholic cirrhosis of liver without ascites; I50.32 Chronic diastolic (congestive) heart failure; I11.0 Hypertensive heart disease with heart failure; F19.90 Other psychoactive substance use, unspecified, uncomplicated; J44.89 Other specified chronic obstructive pulmonary disease; D69.59 Other secondary thrombocytopenia; E88.09 Other disorders of plasma-protein metabolism, not elsewhere classified; D63.8 Anemia in other chronic diseases classified elsewhere; B19.20 Unspecified viral hepatitis C without hepatic coma; M25.462 Effusion, left knee; F10.20 Alcohol dependence, uncomplicated; F17.210 Nicotine dependence, cigarettes, uncomplicated; D61.818 Other pancytopenia; F15.90 Other stimulant use, unspecified, uncomplicated; L97.929 Non-pressure chronic ulcer of unspecified part of left lower leg with unspecified severity; R59.0 Localized enlarged lymph nodes; T63.301A Toxic effect of unspecified spider venom, accidental (unintentional), initial encounter; Z79.899 Other long term (current) drug therapy
CPT/HCPCS: 36415; 73562; 73590; 73701; 80053; 80202; 80307; 83605; 83735; 84100; 85025; 85610; 85652; 85730; 86140; 87040; 87081; 87635; 90677; 93970; 96361; 96365; 96366; 96375; 97162; 99284; A4649; J0696; J1644; J1938; J2270; J2543; J3375; Q9967; A9270